=== PATIENT | male | born 1970 | race Caucasian/White ===

== ENCOUNTER 2022-03-03 08:03 | Outpatient (RCR) | payer OTHER, SELFPAY | END 2022-04-22 11:31 | disposition home or self-care (01) | PROVIDERS: PCP Internal Medicine; Visit Provider Internal Medicine | DX: M54.16 Radiculopathy, lumbar region (principal); Z51.89 Encounter for other specified aftercare | CPT/HCPCS: 97110; 97112; 97161 ==

== ENCOUNTER 2022-07-16 10:35 | Outpatient (CLI) | payer OTHER, SELFPAY ==
[2022-07-16 11:17] LABS: Albumin* 4.4 g/dL (3.3-5.0); Chloride* 102 mmol/L (96-114)
[2022-07-16 11:18] LABS: Potassium* 4.6 mmol/L (3.6-5.1); Sodium* 136 mmol/L (135-149)
[2022-07-16 11:20] LABS: Carbon Dioxide* 31 mmol/L (20-32); Cholesterol* 214 mg/dL (90-199); Creatinine* 0.9 mg/dL (0.5-1.5); Estimated Glomerular Filt Rate 103 ml/min
[2022-07-16 11:21] LABS: Alanine Aminotransferase* 48 U/L (4-50); Alkaline Phosphatase* 42 U/L (40-150); Aspartate Amino Transferase* 34 U/L (12-35); Bilirubin Total* 0.6 mg/dL (0.1-1.5); Blood Urea Nitrogen* 14 mg/dL (7-30); Calcium* 9.3 mg/dL (8.4-10.6); Glucose* 197 mg/dL (60-115); HDL Cholesterol* 29 mg/dL (>=40); LDL Cholesterol Calculated 108 mg/dL (<100); Total Protein* 6.8 g/dL (6.0-8.3); Triglycerides* 383 mg/dL (40-149)
[2022-07-16 11:50] LABS: PSA Screen* 3.96 ng/mL (0.10-4.00)
== END 2022-07-16 10:36 | disposition home or self-care (01) ==
PROVIDERS: PCP Internal Medicine; Visit Provider Internal Medicine
DX: E87.8 Other disorders of electrolyte and fluid balance, not elsewhere classified (principal); E78.5 Hyperlipidemia, unspecified; E74.39 Other disorders of intestinal carbohydrate absorption; Z12.5 Encounter for screening for malignant neoplasm of prostate; Z13.1 Encounter for screening for diabetes mellitus
CPT/HCPCS: 80053; 80061; 84153

== ENCOUNTER 2023-02-04 09:15 | Outpatient (CLI) | payer OTHER, SELFPAY | END 2023-02-04 09:16 | disposition home or self-care (01) | LOC: NFLDREF 15:43 | PROVIDERS: PCP Internal Medicine; Referring Provider Internal Medicine; Visit Provider Internal Medicine | DX: E11.9 Type 2 diabetes mellitus without complications (principal); I10 Essential (primary) hypertension; M10.9 Gout, unspecified; Z13.6 Encounter for screening for cardiovascular disorders; Z95.5 Presence of coronary angioplasty implant and graft; Z12.5 Encounter for screening for malignant neoplasm of prostate | CPT/HCPCS: 80053; 80061; 82043; 82570; 84153 ==

== ENCOUNTER 2023-05-26 21:02 | Emergency (ER) | payer OTHER, SELFPAY ==
[2023-05-26 21:08] VITALS: BP 146/82; PULSE 89; RESP 18; TEMP 36.7; O2SAT 99; BMI 30.7
--- NOTE | 2023-05-26 21:22 | ED.GENADULT ---
HPI - General Adult General Chief complaint: Abdominal Pain Stated complaint: Abdominal pains Time Seen by Provider: 05/26/23 21:19 History of Present Illness HPI narrative: CC: Lower Back Pain, Nausea/ Vomiting pt. with pain after eating since yesterday . has had n/v after eating. denies fevers. 53-year-old man presenting to the emergency department with concern of nausea and vomiting and cramping abdominal pain, diarrhea. since eating yesterday. Wondering if might have been bad food but this was shared and significant other with no effect. Eats and then has terrible cramping. Has not had a fever. No hematochezia or hematemesis described. No rashes noted. Related Data Home Medications Medication Instructions Recorded Confirmed albuterol 90 mcg/actuation aerosol 2 spray inhalation Q4H PRN 07/17/22 05/26/23 inhaler Previous Rx's Medication Instructions Recorded clopidogrel 75 mg tablet (Plavix) 75 mg PO QDAY CAD #90 tabs 10/07/22 metformin 500 mg tablet 500 mg PO QDAY Diabetes #90 tabs 10/07/22 metoprolol tartrate 25 mg tablet 25 mg PO BID Hypertension #180 tabs 10/07/22 atorvastatin 20 mg tablet (Lipitor) 20 mg PO QHS Hyperlipidemia #90 12/30/22 tabs allopurinol 200 mg tablet 200 mg PO QDAY #30 tabs 01/30/23 hyoscyamine sulfate 0.125 mg 0.25 mg (2 x 0.125 mg) PO QID PRN 05/27/23 sublingual tablet cramping #20 tabs lorazepam 0.5 mg tablet 0.5 mg PO BID PRN agitation #60 06/09/23 tabs Allergies Allergy/AdvReac Type Severity Reaction Status Date / Time Cat hair extract Allergy Intermediate Difficulty Uncoded 02/04/23 08:42 Breathing Review of Systems Status of ROS: Reports: 6 or more systems reviewed and unremarkable except as noted in History and below [facility] Medical History Myocardial infarction ?I21.9 - Acute myocardial infarction, unspecified (ICD-10) Hypertension ?I10 - Essential (primary) hypertension (ICD-10) Healthcare maintenance ?Z00.00 - Encounter for general adult medical examination without abnormal findings (ICD-10) Diabetes ?E11.9 - Type 2 diabetes mellitus without complications (ICD-10) Gout ?M10.9 - Gout, unspecified (ICD-10) Umbilical hernia ?K42.9 - Umbilical hernia without obstruction or gangrene (ICD-10) Anxiety ?F41.9 - Anxiety disorder, unspecified (ICD-10) Surgical History Status post coronary artery stent placement ?Z95.5 - Presence of coronary angioplasty implant and graft (ICD-10) Social History Narrative: Patient admits to drinking alcohol. He is in real estate sales. Smoking Status: Never smoker Second hand tobacco smoke exposure: No How often do you have a drink containing alcohol: never How often do you have six or more drinks on one occasion: Never AUDIT-C Alcohol total score: 0 Non-prescribed substance use: denies use Little interest or pleasure in doing things: not at all Feeling down, depressed, or hopeless: not at all Exam Narrative: Exam Narrative: Pleasant. Clearly uncomfortable. Restless. Speaking easily. Though oropharynx sticky. Does looks a little miserable. Lungs are clear. Heart in regular rate and rhythm. Distant. Skin is warm and dry. Well-perfused peripherally without edema. Abdomen with hyperactive bowel sounds. Diffusely little tense. No peritoneal signs. Centrally and lower somewhat tender. Const: Vital Signs, click to edit/add: Vital Signs - 24 hr 05/26/23 21:08 Temperature 98.0 F Pulse Rate [Right Pulse Oximeter] 89 Respiratory Rate 18 Blood Pressure [Ri ght Upper Arm] 146/82 H Pulse Oximetry 99 Oxygen Delivery Me thod Room Air Documenting provider has reviewed patient's vital signs: yes Course Vital Signs Vital signs: Initial Vital Signs Temperature 98.0 F 05/26/23 21:08 Temperature Source Temporal Artery Scan 05/26/23 21:08 Pulse Rate 89 05/26/23 21:08 Respiratory Rate 18 05/26/23 21:08 Blood Pressure 146/82 H 05/26/23 21:08 Blood Pressure Mean 103 05/26/23 21:08 Blood Pressure Position Sitting 05/26/23 21:08 Pulse Oximetry 99 05/26/23 21:08 Oxygen Delivery Method Room Air 05/26/23 21:08 Vital Signs Temperature 98.0 F 05/26/23 21:08 Pulse Rate 89 05/26/23 21:08 Respiratory Rate 18 05/26/23 21:08 Blood Pressure 146/82 H 05/26/23 21:08 Pulse Oximetry 99 05/26/23 21:08 Oxygen Delivery Method Room Air 05/26/23 21:08 Temperature 98.1 F 05/27/23 00:51 Pulse Rate 79 05/27/23 00:51 Respiratory Rate 18 05/27/23 00:51 Blood Pressure 135/74 05/27/23 00:51 Pulse Oximetry 99 05/27/23 00:47 Oxygen Delivery Method Room Air 05/27/23 00:47 Medical Decision Making MDM Narrative Medical decision making narrative: This seems to be somewhat of a gastroenteritis of unclear etiology. Given timing was described I am not convinced that this was a food borne illness. Nonspecific viral most likely. Will do other evaluation no and consider diverticulitis, appendicitis, mesenteric adenitis. The colicky nature does imply think more of colitis/enteritis picture. IV initiated. Did ultimately receive 2 L of normal saline. Given hyoscyamine and Zofran. Seems to think that the hyoscyamine in particular was helpful. Was also given subsequently ketorolac. Labs are generally reassuring though sodium was low prompting the 2 L. I would expect him to have been return to about 133 millimoles per L of sodium. I think this is an acute sodium loss from GI source Overall improved requesting departure. See patient discharge plan Lab Data Lab results reviewed: Yes I reviewed the patient's lab results Labs: Lab Results 05/26/23 05/26/23 Range/Units 21:30 21:50 WBC 7.79 (4.50-11.00) K/uL RBC 4.36 (4.30-5.90) m/uL Hgb 14.1 (13.5-17.5) gm/dL Hct 39.8 (37.0-53.0) % MCV 91 (80-100) fL MCH 32 (26-34) pg MCHC 35 (32-36) gm/dL RDW Coeff of Christopher 12.3 (11.5-15.5) % Plt Count 92 L (140-440) K/uL Neut % (Auto) 80.6 H (42.0-72.0) % Lymph % (Auto) 8.9 L (20-44) % [place] % (Auto) 9.5 (0.0-11.0) % Eos % (Auto) 0.3 (0.0-7.0) % Baso % (Auto) 0.1 (0.0-3.0) % Neut # (Auto) 6.30 (1.7-7.0) K/uL Lymph # (Auto) 0.70 L (0.90-2.90) K/uL [place] # (Auto) 0.70 (0.00-0.90) K/UL Eos # (Auto) 0.02 (0.00-0.50) K/uL Baso # (Auto) 0.01 (0.00-0.30) K/uL Abs Immat Gran (auto) 0.05 (0.00-0.30) K/uL Imm/Tot Granulo (auto) 0.6 % Sodium 129 L (135-149) mmol/L Potassium 4.3 (3.6-5.1) mmol/L Chloride 97 (96-114) mmol/L Carbon Dioxide 21 (20-32) mmol/L Anion Gap 11 (7-15) mEq/L BUN 8 (7-30) mg/dL Creatinine 0.7 (0.5-1.5) mg/dL Estimated Creat Clear 110.13 Estimated GFR 110 ml/min Glucose 175 H (60-115) mg/dL Calcium 9.5 (8.4-10.6) mg/dL Total Bilirubin 0.8 (0.1-1.5) mg/dL Direct Bilirubin 0.0 (0.0-0.5) mg/dL AST 23 (12-35) U/L ALT 23 (4-50) U/L Alkaline Phosphatase 44 (40-150) U/L C-Reactive Protein 5.5 H (0.5-1.0) mg/dL Total Protein 7.4 (6.0-8.3) g/dL Albumin 4.4 (3.3-5.0) g/dL Lipase 73 (23-300) U/L SARS-CoV-2 (PCR) Negative SARS-CoV-2 (Negative) Influenza Type A (PCR) Negative PCR FLU A (Negative) Influenza Type B (PCR) Negative PCR FLU B (Negative) RSV (PCR) Negative PCR RSV (Negative) Discharge Plan Discharge Clinical Impression: Abdominal pain, colicky, Gastroenteritis, Acute hyponatremia Patient Disposition: Home w/ Parent or Adult Condition: Improved Additional Instructions: Focus on hydration with slow advance of diet over the next 36 hours. Diluted juices, soup broths. Jell-O. Crackers, toast, rice. Return for persistent and worsening pain, fever, intractable vomiting, worsening diarrhea. Zofran from [facility]. Without fever or blood in your stool I think you could try loperamide for the diarrhea. Prescriptions: New hyoscyamine sulfate 0.125 mg tablet, sublingual 0.25 mg PO QID PRN (Reason: cramping) Qty: 20 0RF No Action albuterol 90 mcg/actuation aerosol 2 spray inhalation Q4H PRN metformin 500 mg tablet 500 mg PO QDAY Qty: 90 3RF metoprolol tartrate 25 mg tablet 25 mg PO BID Qty: 180 3RF clopidogrel [Plavix] 75 mg tablet 75 mg PO QDAY Qty: 90 2RF atorvastatin [Lipitor] 20 mg tablet 20 mg PO QHS Qty: 90 1RF allopurinol 200 mg tablet 200 mg PO QDAY Qty: 30 0RF lorazepam 0.5 mg tablet 0.5 mg PO BID PRN (Reason: agitation) Qty: 60 0RF Follow Up/Referrals: Kahlil Rouse MD [Primary Care Provider] - Stand Alone Forms: [employer] Info Instructions
[2023-05-26] MEDS: ONDANSETRON 2 MG/ML inj 4 MG IVP (21:45)
[2023-05-26] MEDS: 0.9 % SODIUM CHLORIDE 1000 ml 1,000 ML IV ×2 (21:45→22:37)
[2023-05-26] MEDS: HYOSCYAMINE SULFATE 0.125 MG TAB 0.25 MG SUBLINGUAL (21:45)
[2023-05-26 22:00] VITALS: O2SAT 98
[2023-05-26 22:13] LABS: Basophils Absolute Auto 0.01 K/uL (0.00-0.30); Basophils Percent Auto 0.1 % (0.0-3.0); Eosinophils Absolute Auto 0.02 K/uL (0.00-0.50); Eosinophils Percent Auto 0.3 % (0.0-7.0); Hematocrit 39.8 % (37.0-53.0); Hemoglobin* 14.1 gm/dL (13.5-17.5); Immature Granulocytes Abs Auto 0.05 K/uL (0.00-0.30); Immature Granulocytes Pct Auto 0.6 %; Lymphocytes Percent Auto 8.9 % (20-44); Mean Corpuscular HGB Conc 35 gm/dL (32-36); Mean Corpuscular Hemoglobin 32 pg (26-34); Mean Corpuscular Volume 91 fL (80-100); Monocytes Percent Auto 9.5 % (0.0-11.0); Neutrophils Percent Auto 80.6 % (42.0-72.0); Platelet Count* 92 K/uL (140-440); RDW Coefficient of Variation % 12.3 % (11.5-15.5); Red Blood Count 4.36 m/uL (4.30-5.90); White Blood Count* 7.79 K/uL (4.50-11.00)
[2023-05-26 22:14] LABS: Slide Review Reflex No
[2023-05-26 22:15] LABS: Albumin* 4.4 g/dL (3.3-5.0); Chloride* 97 mmol/L (96-114); Potassium* 4.3 mmol/L (3.6-5.1); Sodium* 129 mmol/L (135-149)
[2023-05-26 22:17] LABS: Creatinine* 0.7 mg/dL (0.5-1.5); Est. Creatinine Clearance* 110.13; Estimated Glomerular Filt Rate 110 ml/min; Lipase* 73 U/L (23-300)
[2023-05-26 22:18] LABS: Alkaline Phosphatase* 44 U/L (40-150); Anion Gap 11 mEq/L (7-15); Aspartate Amino Transferase* 23 U/L (12-35); Bilirubin Total* 0.8 mg/dL (0.1-1.5); Blood Urea Nitrogen* 8 mg/dL (7-30); Carbon Dioxide* 21 mmol/L (20-32); Glucose* 175 mg/dL (60-115); Total Protein* 7.4 g/dL (6.0-8.3)
[2023-05-26 22:19] LABS: Alanine Aminotransferase* 23 U/L (4-50); Calcium* 9.5 mg/dL (8.4-10.6)
[2023-05-26 22:21] LABS: C Reactive Protein* 5.5 mg/dL (0.5-1.0)
[2023-05-26 23:18] LABS: PCR FLU A Negative PCR FLU A (Negative); PCR FLU B Negative PCR FLU B (Negative); PCR RSV Negative PCR RSV (Negative); SARS PCR* Negative SARS-CoV-2 (Negative)
[2023-05-26 23:20] VITALS: TEMP 36.9
[2023-05-26] MEDS: KETOROLAC 30 MG/ML inj IVP (23:20)
[2023-05-27 00:47] VITALS: BP 135/74; PULSE 79; RESP 18; TEMP 36.7; O2SAT 99
[2023-05-27 00:49] VITALS: TEMP 36.7
[2023-05-27 00:51] VITALS: BP 135/74; PULSE 79; RESP 18; TEMP 36.7
== END 2023-05-27 00:52 | disposition home or self-care (01) ==
PROVIDERS: Emergency Provider Family Medicine; PCP Internal Medicine
DX: K52.9 Noninfective gastroenteritis and colitis, unspecified (principal); E87.1 Hypo-osmolality and hyponatremia
CPT/HCPCS: 36415; 80048; 80076; 83690; 85025; 86140; 87631; 94761; 96374; 96375; 99284; A9270; J1885; J2405; J7030

== ENCOUNTER 2023-11-19 07:35 | Outpatient (CLI) | payer OTHER, SELFPAY | END 2023-11-19 07:36 | disposition home or self-care (01) | LOC: NFLDREF 14:33 | PROVIDERS: PCP Internal Medicine; Referring Provider Internal Medicine; Visit Provider Internal Medicine | DX: E78.5 Hyperlipidemia, unspecified (principal) | CPT/HCPCS: 80061 ==

== ENCOUNTER 2024-02-24 10:01 | Outpatient (CLI) | payer OTHER, SELFPAY | END 2024-02-24 10:02 | disposition home or self-care (01) | LOC: NFLDREF 02-25 07:40 | PROVIDERS: PCP Internal Medicine; Referring Provider Internal Medicine; Visit Provider Internal Medicine | DX: R53.1 Weakness (principal) | CPT/HCPCS: 80053; 84443 ==

== ENCOUNTER 2024-03-17 12:50 | Outpatient (CLI) | payer OTHER, SELFPAY ==
--- OUTSIDE RECORDS SUMMARY | 2024-03-17 12:52 | XMS_ITS | Clinical Summary ---
Author Organization [facility] Address [address] [place] [address] Care Team Providers Care Special Education Educational Assistant Name Role Phone Elsewhere, Pcp Primary Care Provider Unavailabl e Source Comments Patient records contain information from all sites at [facility]. For routine questions regarding patient records, call [phone] during business hours, M-F 8:00 AM - 5:00 PM Central Time. Record requests for emergency care only can be directed to [phone] at any time.[facility] Allergies Active Allergy Reactions Criticality Noted Date Comments Cat Dander Other (see comments) 12/16/2022 Medications Medication Sig Dispensed Refills Start Date End Date Status LORazepam (ATIVAN) 0.5 mg tablet Take 0.5 mg by mouth as needed. 01/26/2021 Active zolpidem (AMBIEN) 5 mg tablet Take 5 mg by mouth as needed. 12/03/2020 Active allopurinoL (ZYLOPRIM) 300 mg tablet Take 150 mg by mouth 2 (two) times a week. 03/27/2021 Active metFORMIN (GLUCOPHAGE) 500 mg tablet 1 tablet daily. 12/01/2022 Active metoprolol tartrate (LOPRESSOR) 25 mg tablet 1 tablet 2 (two) times a day. 12/01/2022 Active clopidogreL (PLAVIX) 75 mg tablet 1 tablet daily. 12/01/20[address] tablet Take 81 mg by mouth daily. 10/04/2022 Active L-LYSINE ORAL Take 1 tablet by mouth as needed. Active cholecalciferol (Vitamin D3) 50 mcg (2,000 Unit) tablet Take 50 mcg by mouth daily. Active NIFEdipine (ADALAT CC) 60 mg ER tablet Take 60 mg by mouth daily. 08/24/2023 Active albuterol-budesonide 90-80 mcg/actuation HFA aerosol inhaler Inhale 2 sprays as needed. 07/17/2022 Active atorvastatin (LIPITOR) 40 mg tablet Take 1 tablet (40 mg total) by mouth daily. 90 tablet 3 09/03/2023 09/02/2024 Active predniSONE (DELTASONE) 20 mg tablet Take 2 tablets (40 mg total) by mouth daily. 10 tablet 12/19/2023 Active Active Problems Problem Noted Date Diagnosed Date Atherosclerotic Heart Diseas e Of [place] Coronary Artery Without Angina Pectoris 09/01/2023 Myocardial Infarction Old 09/01/2023 Coronary Stent Status Post 09/01/2023 Family History Coronary Artery Disease Elevated Lipoprotein A 09/01/2023 Diabetes Mellitus Type 2 09/01/2023 Hypertension Essential Primary 09/01/2023 Hyperlipidemia On Treatment 09/01/2023 Apnea Sleep Obstructive 06/14/2021 Overview (06/14/2021): Added automatically from request for surgery [id number] Encounters Date Type Department Care Team Description 12/19/2023 1:16 PM CDT - 12/19/2023 11:59 PM CDT Hospital Encounter Department of Radiology in [place], [place] [address] [id number] Mercedez Correa P.A.-C., P.A. Cough Acute Discharge Disposition: Home or Self Care 12/19/2023 1:00 PM CDT Office Visit Department of Family Medicine, [facility], in [place], [place] [address] [phone] Mercedez Correa, P.A.-C., P.A. Cough Acute (Primary Dx); Thrombocytopenia (HCC) from Last 3 Months Immunizations Name Administration Dates Next Due Rabies, intramuscular, historical 2012,05/30/2013,05/17/2013, 013,05/04/2013,04/19/2013,04/15/2013 SARS-COV-2 (COVID-19) - PFIZ ER (Discontinued)(12 years or older) 07/19/2021,12/31/2020,11/29/2020 SARS-COV-2 (COVID-19) - PFIZ ER BIVALENT TS(Discontinued)(12 YEARS OR OLDER) 06/03/2022 Tdap 04/15/2013 Family History Medical History Relation Name Comments Pancreatic cancer Maternal Grandmother Marline Relation Name Status Comments Maternal Grandmother Marline Social History Tobacco Use Types Packs/Day Years Used Date Smoking Tobacco: Never Passive Smoke Exposure: Past Smokeless Tobacco: Never Tobacco Cessation:Counseling Given: Not Answered Comments:Past secondhand exposure Alcohol Use Standard Drinks/Week Comments Yes 11 (1 standard drink = 0.6 oz pu re alcohol) Humiliation, Afraid, Rape, and Kick questionnair e Answer Date Recorded Within the last year, have y ou been afraid of your partner or ex-partner? Patient declined 12/14/2022 Within the last year, have y ou been humiliated or emotionally abused in other ways by your partner or ex-partner? Patient declined 12/14/2022 Within the last year, have y ou been kicked, hit, slapped, or otherwise physically hurt by your partner or ex-partner? Patient declined 12/14/2022 Within the last year, have y ou been raped or forced to have any kind of sexual activity by your partner or ex-partner? Patient declined 12/14/2022 Social Connection and Isolat ion Panel [NHANES] Answer Date Recorded In a typical week, how many times do you talk on the phone with family, friends, or neighbors? More than three times a week 12/14/2022 How often do you get togethe r with friends or relatives? Three times a week 12/14/2022 How often do you attend chur or scientologist services? Patient declined 12/14/2022 Do you belong to any clubs o r organizations such as yazidism groups, unions, fraternal or athletic groups, or school groups? No 12/14/2022 How often do you attend meet ings of the clubs or organizations you belong to? Never 12/14/2022 Are you , , di vorced, , never , or living with a partner? 12/14/2022 AUDIT-C Answer Date Recorded Q1: How often do you have a drink containing alc ohol? Patient declined 12/14/2022 Average Number of Drinks Not on file 023 Frequency of Binge Drinking Not on file 11/17 Overall Financial Resource Strain (CARDIA) Answe r Date Recorded How hard is it for you to pa y for the very basics like food, housing, medical care, and heating? Patient declined 12/14/2022 [facility] Occupational Stress Questionnaire Answer Date Recorded Do you feel stress - tense, restless, nervous, or anxious, or unable to sleep at night because your mind is troubled all the time - these days? Only a little 12/14/2022 Exercise Vital Sign Answer Date Recorde d On average, how many days pe r week do you engage in moderate to strenuous exercise (like a brisk walk)? 2 days 12/14/2022 On average, how many minutes do you engage in exercise at this level? 20 min 12/14/2022 Hunger Vital Sign Answer Date Recorded Within the past 12 months, y ou worried that your food would run out before you got the money to buy more. Patient declined Within the past 12 months, t he food you bought just didn't last and you didn't have money to get more. Patient declined PRAPARE - Transportation Answer Date Re corded In the past 12 months, has l ack of transportation kept you from medical appointments or from getting medications? No 12/14/2022 In the past 12 months, has l ack of transportation kept you from meetings, work, or from getting things needed for daily living? Patient declined 12/14/2022 Housing Stability Vital Sign Answer Dion e Recorded In the last 12 months, was t here a time when you were not able to pay the mortgage or rent on time? Patient refused 12/15/19 23 In the last 12 months, how many places have you lived? 69 12/14/2022 In the last 12 months, was t here a time when you did not have a steady place to sleep or slept in a skilled nursing (including now)? Patient refused 12/14/2022 Nutrition Answer Date Recorded On average, how many serving s of fruits and vegetables do you eat per day (serving size is equal to 1 cup or approximately the size of a tennis ball)? 0-1 12/14/2022 Dental Answer Date Recorded Dental: Regular Dentist Yes 09/07/19 Employment Answer Date Recorded Employment status Employed and actively working without restrictions 12/14/2022 Education Answer Date Recorded What is the highest level of school you have completed or the highest degree you have received? Some college, no degree 12/14/2022 Sex and Gender Information Value Date Recorded Sex Assigned at Male 12/14/2022 8:58 PM CDT Gender Identity Male 12/18/2022 2:56 PM CDT Sexual Orientation Straight 12/14/2022 8: 58 PM CDT Last Filed Vital Signs Vital Sign Reading Time Taken Comments Blood Pressure 120/55 12/19/2023 12:43 PM CDT Pulse 74 12/19/2023 12:43 PM CDT Temperature 36 ??C (96.8 ??F) 02/05/2022 1:52 PM CDT Respiratory Rate 20 12/19/2023 12:43 PM CDT Oxygen Saturation 98% 12/19/2023 12:43 PM CDT Inhaled Oxygen Concentration - - Weight 85.9 kg (189 lb 6 oz) 12/19/2023 12:43 PM CDT Height 166.3 cm (5' 5.47) 09/01/2023 12:[address] Body Mass Index 31.06 09/01/2023 12:08 PM ENGINEERING VICE PRESIDENT Plan of Treatment Health Maintenance Due Date Last Done Comments CT Colonography 1970 Cologuard 1970 Colonoscopy 1970 Colorectal Cancer Screening 1970 Diabetic Office Visit with F oot Exam 1970 Dilated Eye Exam 1970 FIT 1970 HIV Screening 1970 Hepatitis C Screening 1970 Urine Albumin 1970 Pneumococcal vaccine (0-64 y ears) (1 of 2 - PCV) 1976 Hepatitis B Vaccines (1 of 3 - 19+ 3-dose series) 1989 Zoster Vaccines (1 of 2) 2020 COVID-19 Vaccine ( - 2022-2 4 season) 2023 06/03/2022, 07/19/2021, 12/31/2020, Additional history exists Depression Screening (Annual PHQ-2) 08/17/2023 Hemoglobin A1C 03/01/2024 09/01/2023, 12/18/2022 Influenza Vaccine (#1) 2024 07/17/2022, 2021 Creatinine Level (Kidney Fun ction Test) 09/01/2024 09/01/2023, 12/18/2022 Office Visit for Blood Press ure Check / Re-check 12/18/2024 12/19/2023 Lipid (Cholesterol) Screening 09/01/2028 09/01/2023, 12/18/2022 DTaP,Tdap,and Td Vaccines (3 - Td or Tdap) 07/17/2032 07/17/2022, 04/15/2013 Medical Devices Implanted Type Area Public Health Service Officer Device Identifier Shelf Expiration Date Model / Serial / Lot Cardiac Stent Cardiac Stent Heart Description:3 stents Procedures Procedure Name Priority Date/Time Associated Diagnosis Comments DX CHEST AP OR PA AND LATERAL 2 VIEWS RAD - Routine (most inpatients and all outpatients) 12/19/2023 1:32 PM CDT Cough Acute CBC WITH DIFFERENTIAL, B Routine 12/19/2023 1:22 PM CDT Cough Acute HEMOGLOBIN A1C, B Routine 09/01/2023 11: 48 AM ENGINEERING VICE PRESIDENT Atherosclerotic Heart Disease Of [place] Coronary Artery Without Angina Pectoris Diabetes Mellitus Type 2 (HCC) LIPID PANEL, S Routine 09/01/2023 11:48 AM ENGINEERING VICE PRESIDENT Atherosclerotic Heart Disease Of [place] Coronary Artery Without Angina Pectoris CREATININE WITH EGFR, S/P Routine 09/01/2023 11:48 AM ENGINEERING VICE PRESIDENT Atherosclerotic Heart Disease Of [place] Coronary Artery Without Angina Pectoris from Last 3 Months or Most Recently Relevant to Health Maintenance Results * DX Chest AP or PA and Lateral 2 Views (12/19/2023 1:32 PM CDT) Anatomical Region Laterality Modality Chest, Thoracic RST LOS, Tho racic ARZ LOS, Thoracic FLA LOS N/A Digital Radiography Impressions 12/19/2023 1:34 PM CDT No focal airspace opacity. Narrative 12/19/2023 1:34 PM CDT EXAM: DX CHEST AP OR PA AND LATERAL 2 VIEWS COMPARISON: Chest radiograph 09/01/2023 FINDINGS: Trachea is midline. Cardiac and mediastinal borders are clear. Cardiac silhouette is nonenlarged. No focal consolidation. No pleural effusion or pneumothorax. Partially visualized upper abdomen is unremarkable. No osseous abnormality. Procedure Note Cheng Villegas M.D. - 12/19/2023 EXAM: DX CHEST AP OR PA AND LATERAL 2 VIEWS COMPARISON: Chest radiograph 09/01/2023 FINDINGS: Trachea is midline. Cardiac and mediastinal borders are clear.Cardiac silhouette is nonenlarged. No focal consolidation. No pleuraleffusion or pneumothorax. Partially visualized upper abdomen isunremarkable. No osseous abnormality. IMPRESSION: No focal airspace opacity. Mercedez Correa P.A.-C., P.A. IMG DIAGNOSTI C IMAGING PROCEDURES * (ABNORMAL) CBC with Differential, Blood (12/19/2023 1:22 PM CDT) Pathologist [facility] Hemoglobin 13.2 13.2 - 16.6 g/dL 12/19/2023 1:27 PM CDT OWAT Hematocrit 36.9(L) 38.3 - 48.6 % 12/19/2023 1:27 PM CDT OWAT Erythrocytes 4.14(L) 4.35 - 5.65 x10(12)/L 12/19/2023 1:27 PM CDT OWAT MCV 89.1 78.2 - 97.9 fL 12/19/2023 1:27 PM CDT OWAT RBC Distrib Width 11.7(L) 11.8 - 14.5 % 12/19/2023 1:27 PM CDT OWAT Platelet Count 127(L) 135 - 317 x10(9)/L 12/19/2023 1:27 PM CDT OWAT Leukocytes 4.7 3.4 - 9.6 x10(9)/L 12/19/2023 1:27 PM CDT OWAT Neutrophils 2.30 1.56 - 6.45 x10(9)/L 12/19/2023 1:27 PM CDT OWAT Lymphocytes 1.49 0.95 - 3.07 x10(9)/L 12/19/2023 1:27 PM CDT OWAT Monocytes 0.53 0.26 - 0.81 x10(9)/L 12/19/2023 1:27 PM CDT OWAT Eosinophils 0.31 0.03 - 0.48 x10(9)/L 12/19/2023 1:27 PM CDT OWAT Basophils 0.03 0.01 - 0.08 x10(9)/L 12/19/2023 1:27 PM CDT OWAT Blood (Blood, Venous) 12/19/2023 1:22 PM CDT 12/19/2023 1:25 PM CDT Mercedez Correa P.A.-C., P.A. LAB BLOOD ADD -ON [facility] [address] [address], [facility] in [place] [address] [place] [address] * (ABNORMAL) Lipid Panel (09/01/2023 11:48 AM ENGINEERING VICE PRESIDENT) Triglycerides 179(H) mg/dL 09/01/2023 12:57 PM ENGINEERING VICE PRESIDENT DTL Comment: ----REFERENCE VALUE---- Normal: <150 mg/dL Borderline High: 150-199 mg/dL High: 200-499 mg/dL Very High: > or =500 mg/dL Cholesterol, Total 149 mg/dL 2023 12:57 PM ENGINEERING VICE PRESIDENT DTL Comment: ----REFERENCE VALUE---- Desirable: < 200 mg/dL Borderline High: 200 - 239 mg/dL High: > or = 240 mg/dL Cholesterol, LDL, Calculated 83 mg/dL 09/01/2023 12:57 PM ENGINEERING VICE PRESIDENT DTL Comment: ----REFERENCE VALUE---- Desirable: <100 mg/dL Above Desirable: 100-129 mg/dL Borderline High: 130-159 mg/dL High: 160-189 mg/dL Very High: >=190 mg/dL ----ADDITIONAL INFORMATION---- LDL cholesterol calculated using the Ortiz/NIH equation. Cholesterol, HDL, S 35(L) >=40 mg/dL 09/01/2023 12:57 PM ENGINEERING VICE PRESIDENT DTL Cholesterol, Non-HDL, Calculated 114 mg/dL 09/01/2023 12:57 PM ENGINEERING VICE PRESIDENT DTL Comment: ----REFERENCE VALUE---- Desirable: <130 mg/dL Above Desirable: 130-159 mg/dL Borderline High: 160-189 mg/dL High: 190-219 mg/dL Very High: > or =220 mg/dL Fasting (8 HR or more) Yes 09/01/2023 12:38 PM ENGINEERING VICE PRESIDENT DTL Blood (Blood, Venous) 09/01/2023 11:48 AM ENGINEERING VICE PRESIDENT 09/01/2023 12:38 PM ENGINEERING VICE PRESIDENT Yazan Chirinos APRN.N.P., Rajat.NRennyPRenny MITCHELL BLOOD ADD-ON Performing Organization Address City/[facility]/ZIP Co de Phone Number [facility] [address] [place] [address] * (ABNORMAL) Hemoglobin A1c (09/01/2023 11:48 AM ENGINEERING VICE PRESIDENT) [facility] Hemoglobin A1c, B 6.7(H) 4.0 - 5.6 % 09/01/2023 12:52 PM ENGINEERING VICE PRESIDENT DTL Comment: Hemoglobin A1c values greater than or equal to 6.5 percent are diagnostic for diabetes mellitus. ??Diagnosis should be confirmed by repeat testing. ??In diabetic patients, HbA1c goals should be discussed with healthcare provider. Blood (Blood, Venous) 09/01/2023 11:48 AM ENGINEERING VICE PRESIDENT 09/01/2023 12:20 PM ENGINEERING VICE PRESIDENT Lorena Marroquin APRN, C.N.PRenny, Rajat.N.PRenny APONTE B BLOOD ADD-ON Performing Organization Address City/[facility]/ZIP Co de Phone Number [facility] [address] [place] [address] * Creatinine with Estimated GFR (09/01/2023 11:48 AM ENGINEERING VICE PRESIDENT) Creatinine 1.04 0.74 - 1.35 mg/dL 09/01/2023 12:57 PM ENGINEERING VICE PRESIDENT DTL Estimated GFR (eGFR) 86 >=60 mL/min/BSA 09/01/2023 12:57 PM ENGINEERING VICE PRESIDENT DTL Comment: Estimated GFR calculated using the 2020 CKD_EPI creatinine equation. Blood (Blood, Venous) 09/01/2023 11:48 AM ENGINEERING VICE PRESIDENT 09/01/2023 12:38 PM ENGINEERING VICE PRESIDENT Lorena Marroquin APRN, C.N.P., D.N.P. FAY Nieto BLOOD ADD-ON [facility] [address] [place] [address], [facility] [address] [place] [address] from Last 3 Months or Most Recently Relevant to Health Maintenance Care Teams Special Education Educational Assistant Relationship Specialty Start Date End Date Elsewhere, Pcp PCP - General Internal Medicine 02/05/22
--- OUTSIDE RECORDS SUMMARY | 2024-03-17 12:53 | XMS_ITS | Encounter Summary ---
Author Organization [facility] Address [address] [place] [address] Care Team Providers Care Crutcher Helper Name Role Phone Elsewhere, Pcp Primary Care Provider Unavailabl e Reason for Referral * Outpatient (Routine) - Closed Specialty Diagnoses / Procedures Referred By Joan osman Referred To Contact Diagnoses Cough Acute Procedures DX Chest AP or PA and Lateral 2 Views Mercedez Correa P.A.-C., P.A. [address] [address] [facility] Region Referral ID Status Reason Start Date Expiration Date Visits Re quested Visits Authorized [id number] Closed 12/19/2023 12/18/2024 1 1 Reason for Visit * Reason Comments Upper Respiratory Infection FATIGUE Cough PRODUCTIVE Encounter Details Date Type Department Care Team (Late Contact Info) Description 12/19/2023 1:00 PM CDT Office Visit Department of Family Medicine, [facility], in [place], [place] [address], [place] [address] Mercedez Correa P.A.-C., P.A. [address] [address] Cough Acute (Primary Dx); Thrombocytopenia (HCC) Social History Tobacco Use Types Packs/Day Years [...] 12/14/2022 How often do you attend chur ch or voodoo services? Patient declined 12/14/2022 Do you belong to any clubs o r organizations such as rastafarian groups, unions, fraternal or athletic groups, or [...] medical care, and heating? Patient declined 12/14/2022 [facility] - Occupational Stress Questionnaire Answer Date Recorded [...] or rent on time? Patient refused 12/15/19 In the last 12 months, how many places have you lived? 69 12/14/2022 In the last 12 months, was t here a time when you did not have a steady place to sleep or slept in a retirement (including now)? Patient refused 12/14/2022 Nutrition Answer [...] Orientation Straight 12/14/2022 8: 58 PM CDT documented as of this encounter Last Filed Vital Signs Vital Sign Reading Time Taken Comments Blood Pressure 120/55 12/19/2023 12:43 PM CDT Pulse 74 12/19/2023 12:43 PM CDT Temperature - - Respiratory Rate 20 12/19/2023 12:43 PM CDT Oxygen Saturation 98% 12/19/2023 12:43 PM CDT Inhaled Oxygen Concentration - - Weight 85.9 kg (189 lb 6 oz) 12/19/2023 12:43 PM CDT Height - - Body Mass Index 31.06 09/01/2023 12:08 PM [employer] documented in this encounter Progress Notes * Mercedez Correa P.A.-C., P.A. - 12/19/2023 1:00 PM CDT SUBJECTIVE CHIEF COMPLAINT/REASON FOR VISIT Upper Respiratory Infection (FATIGUE) and Cough (PRODUCTIVE ) HISTORY OF PRESENT ILLNESS Cheng Chisholm is a 53 y.o. male who presents for evaluation of cough and runny nose. This has beenongoing for about 1 week. He notes significant fatigue associated with this. He denies significant shortness of breath or chest pain. No fevers/chills. No known sick contacts. He has no history of chronic lung conditions. 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 aspirin [address] tablet Take 81 mg by mouth daily. atorvastatin (LIPITOR) 40 mg tablet Take 1 tablet (40 mg total) by mouth daily. 90 tablet 3 cholecalciferol (Vitamin D3) 50 mcg (2,000 Unit) tablet Take 50 mcg by mouth daily. L-LYSINE ORAL Take 1 tablet by mouth as needed. LORazepam (ATIVAN) 0.5 mg tablet Take 0.5 mg by mouth as needed. metFORMIN (GLUCOPHAGE) 500 mg tablet 1 tablet daily. metoprolol tartrate (LOPRESSOR) 25 mg tablet 1 tablet 2 (two) times a day. NIFEdipine (ADALAT CC) 60 mg ER tablet Take 60 mg by mouth daily. zolpidem (AMBIEN) 5 mg tablet Take 5 mg by mouth as needed. allopurinoL (ZYLOPRIM) 300 mg tablet Take 150 mg by mouth 2 (two) times a week. clopidogreL (PLAVIX) 75 mg tablet 1 tablet daily. predniSONE (DELTASONE) 20 mg tablet Take 2 tablets (40 mg total) by mouth daily. 10 tablet 0 No current facility-administered medications for this visit. ALLERGIES/CONTRAINDICATIONS Allergies Allergen Reactions Cat Dander Other (see comments) OBJECTIVE BP 120/55 (BP Location: Right arm, Patient Position: Sitting, Cuff Size: Regular) Pulse 74 Resp20 Wt 85.9 kg SpO2 98% BMI 31.06 kg/m?? PHYSICAL EXAMINATION General: No acute distress. Patient is polite and cooperative. Appropriately dressed and normal hygiene. Skin: No suspicious lesions or rash noted over exposed skin. HEENT: Normocephalic. Pupils equal, conjunctiva clear. Bilateral tympanic membranes without erythema, bulging, or effusion. Normal pharynx, without erythema or tonsillar enlargement or exudate. Uvulamidline. Neck: No nodes, no thyromegaly. Heart: Regular rate and rhythm. No murmurs, gallops or rubs noted. Lungs: Clear to auscultation bilaterally. No expiratory wheeze. No accessory muscles of respirationnoted. Musculoskeletal: Sensation intact, with no cyanosis, clubbing or edema to extremities. Mental Health: Alert and oriented. Normal thought form and content. ASSESSMENT / PLAN #1 Cough Acute - Chest xray is negative. Exam was unremarkable. I suspect this is a viral process and will likely resolve on its own. I explained to the patient that no antibiotics are indicated as there are no signs that this is of bacterial etiology. - Patient should continue with supportive cares including increasing fluids, rest, and taking ibuprofen/Tylenol as needed. - Reviewed red flag symptoms for which they would need to present to the emergency room. Otherwise should follow-up with their primary care provider if symptoms persist. - Patient understands and agrees with this plan. #2 Thrombocytopenia (HCC) - Mild at this time, however, this has trended down slightly from 3 months ago. Unclear etiology atthis time. Advise repeat CBC in 1-2 weeks with his PCP. Would consider hematology consult should this continue to trend down. Electronically signed by: Mercedez Correa P.A.-C., P.A. 12/19/23 3:51 PM CDT documented in this encounter Plan of Treatment Not on file documented as of this encounter Procedures Procedure Name Priority Date/Time Associated Diagnosis Comments CBC WITH DIFFERENTIAL, B Routine 12/19/2023 1:22 PM CDT Cough Acute documented in this encounter Results * DX Chest AP or PA [...] with Differential, Blood (12/19/2023 1:22 PM CDT) Hemoglobin 13.2 13.2 - 16.6 g/dL 12/19/2023 [...] Correa P.A.-C., P.A. LAB BLOOD ADD [facility] [address] [place] [address], [place] OW[facility] in [place] [address] [place] [address] documented in this encounter Visit Diagnoses Diagnosis Cough Acute- Primary Thrombocytopenia (HCC) Cough Acute documented in this encounter Care Teams Crutcher Helper Relationship Specialty Start Date End Date Elsewhere, Pcp PCP - General Internal Medicine 02/05/22 documented as of this encounter
--- OUTSIDE RECORDS SUMMARY | 2024-03-17 12:53 | XMS_ITS | Encounter Summary ---
Author Organization [facility] Address [address] [place] [address] Care Team Providers Care Forestry And Wildlife Manager Name Role Phone Elsewhere, Pcp Primary Care Provider Unavailabl e Reason for Referral * Outpatient (Routine) - Closed Specialty Diagnoses / Procedures Referred By Contac t Referred To Contact Diagnoses Cough Acute Procedures DX Chest AP or PA and Lateral 2 Views Mercedez Correa P.A.-C., P.A. [address], [place] [address] [facility] Region Referral ID Status Reason Start Date Expiration Date Visits Re quested Visits Authorized [id number] Closed 12/19/2023 12/18/2024 1 1 Reason for Visit * Outpatient (Routine) - Closed Specialty Diagnoses / Procedures Referred By Contac t Referred To Contact Diagnoses Cough Acute Procedures DX Chest AP or PA and Lateral 2 Views Mercedez Correa P.A.-C., P.A. [address] [place] [address] [facility] Region Referral ID Status Reason Start Date Expiration Date Visits Re quested Visits Authorized [id number] Closed 12/19/2023 12/18/2024 1 1 Encounter Details Date Type Department Care Team (Latest Contact Info) Description 12/19/2023 1:16 PM CDT - 12/19/2023 11:59 PM CDT Hospital Encounter Department of Radiology in [place], [place] [address] [place] [address] Mercedze Correa P.A.-C., P.A. [address], [place] [address] Cough Acute Discharge Disposition: Home or Self Care Social History Tobacco Use Types Packs/Day Years Used Date Smoking Tobacco: Never Passive Smoke Exposure: Past Smokeless Tobacco: Never Comments:Past secondhand exp osure Alcohol Use Standard Drinks/Week Comments Yes 11 [...] often do you attend chur ch or caodaism services? Patient declined 12/14/2022 Do you belong to any clubs o r organizations such as roman catholic groups, unions, fraternal or athletic groups, or [...] medical care, and heating? Patient declined 12/14/2022 [facility] - Occupational Stress Questionnaire Answer Date Recorded [...] place to sleep or slept in a senior care (including now)? Patient refused 12/14/2022 Nutrition Answer [...] PM CDT documented as of this encounter Medications at Time of Discharge Medication Sig Dispensed Refills Start Date End Date albuterol-budesonide 90-80 mcg/actuation HFA aerosol inhaler Inhale 2 sprays as needed. 07/17/2022 allopurinoL (ZYLOPRIM) 300 mg tablet Take 150 mg by mouth 2 (two) times a week. 03/27/[address] tablet Take 81 mg by mouth daily. 10/04/2022 atorvastatin (LIPITOR) 40 mg tablet Take 1 tablet (40 mg total) by mouth daily. 90 tablet 3 09/03/2023 09/02/2024 cholecalciferol (Vitamin D3) 50 mcg (2,000 Unit) tablet Take 50 mcg by mouth daily. clopidogreL (PLAVIX) 75 mg tablet 1 tablet daily. 12/01/2022 L-LYSINE ORAL Take 1 tablet by mouth as needed. LORazepam (ATIVAN) 0.5 mg tablet Take 0.5 mg by mouth as needed. 01/26/2021 metFORMIN (GLUCOPHAGE) 500 mg tablet 1 tablet daily. 12/01/2022 metoprolol tartrate (LOPRESSOR) 25 mg tablet 1 tablet 2 (two) times a day. 12/01/2022 NIFEdipine (ADALAT CC) 60 mg ER tablet Take 60 mg by mouth daily. 08/24/2023 predniSONE (DELTASONE) 20 mg tablet Take 2 tablets (40 mg total) by mouth daily. 10 tablet 12/19/2023 zolpidem (AMBIEN) 5 mg tablet Take 5 mg by mouth as needed. 12/03/2020 documented as of this encounter Plan of Treatment Not on file documented as of this encounter Procedures Procedure Name Priority Date/Time Associated Diagnosis Comments DX CHEST AP OR PA AND LATERAL 2 VIEWS RAD - Routine (most inpatients and all outpatients) 12/19/2023 1:32 PM CDT Cough Acute documented in this [...] P.A.-C., P.A. IMG DIAGNOSTI C IMAGING PROCEDURES documented in this encounter Visit Diagnoses Diagnosis Cough Acute documented in this encounter Care Teams Forestry And Wildlife Manager Relationship Specialty Start Date End Date Elsewhere, Pcp PCP - General Internal Medicine 02/05/22 documented as of this encounter
--- OUTSIDE RECORDS SUMMARY | 2024-03-17 12:53 | XMS_ITS | Referral Summary ---
Author Organization [facility] Address [address] [place] [address] Care Team Providers Care Managing Director Name Role Phone Elsewhere, Pcp Primary Care Provider Unavailabl e Source Comments Patient records contain information from all sites at [facility]. For routine questions regarding patient records, call [phone] during business hours, M-F 8:00 AM - 5:00 PM Central Time. Record requests for emergency care only can be directed to [phone] at any time.[facility] Encounters Date Type Department Care Team Description 12/19/2023 1:16 PM CDT - 12/19/2023 11:59 PM CDT Hospital Encounter Department of Radiology in [place], [place] [address] [place] [phone] Mercedez Correa, Yolanda.Adams.-C., P.A. Cough Acute Discharge Disposition: Home or Self Care 12/19/2023 1:00 PM CDT Office Visit Department of Family Medicine, [facility], in [place], [place] [address] [place] [phone] Mercedez Correa, P.A.-C., P.A. Cough Acute (Primary Dx); Thrombocytopenia (HCC) from Last 3 Months Allergies Active Allergy Reactions Criticality Noted Date [...] Diagnosed Date Atherosclerotic Heart Diseas e Of [place] Coronary Artery Without Angina Pectoris 09/01/2023 Myocardial Infarction Old 09/01/2023 Coronary Stent Status Post 09/01/2023 Family History Coronary Artery Disease Elevated Lipoprotein A 09/01/2023 Diabetes Mellitus Type 2 09/01/2023 Hypertension Essential Primary 09/01/2023 Hyperlipidemia On Treatment 09/01/2023 Apnea Sleep Obstructive 06/14/2021 Overview (06/14/2021): Added automatically from request for surgery [id number] Immunizations Name Administration Dates Next Due Rabies, intramuscular, historical 2012,05/30/2013,05/17/2013, 013,05/04/2013,04/19/2013,04/15/2013 SARS-COV-2 (COVID-19) - PFIZ ER (Discontinued)(12 years or older) 07/19/2021,12/31/2020,11/29/2020 SARS-COV-2 (COVID-19) - PFIZ ER BIVALENT TS(Discontinued)(12 YEARS OR OLDER) 06/03/2022 Tdap 04/15/2013 Social History Tobacco Use Types Packs/Day Years [...] week 12/14/2022 How often do you attend [facility] or adventist services? Patient declined 12/14/2022 Do you belong to any clubs o r organizations such as jewish groups, unions, fraternal or athletic groups, or [...] medical care, and heating? Patient declined 12/14/2022 [facility] - [...] place to sleep or slept in a halfway (including now)? Patient refused 12/14/2022 Nutrition Answer [...] Body Mass Index 31.06 09/01/2023 12:08 PM SIGNAL MECHANIC Plan of Treatment Not on file Medical Devices Implanted Type Area Paper Core Machine Operator Device Identifier Shelf Expiration Date Model / [...] A1C, B Routine 09/01/2023 11: 48 AM SIGNAL MECHANIC Atherosclerotic Heart Disease Of [place] Coronary Artery Without Angina Pectoris Diabetes Mellitus Type 2 (HCC) LIPID PANEL, S Routine 09/01/2023 11:48 AM SIGNAL MECHANIC Atherosclerotic Heart Disease Of [place] Coronary Artery Without Angina Pectoris CREATININE WITH EGFR, S/P Routine 09/01/2023 11:48 AM SIGNAL MECHANIC Atherosclerotic Heart Disease Of [place] Coronary Artery Without Angina Pectoris from Last [...] Correa P.A.-C., P.A. LAB BLOOD ADD -ON [facility] [address] [place] [address], [facility] OWAT [facility] in [place] [address] [place] [address] * (ABNORMAL) Lipid Panel (09/01/2023 11:48 AM SIGNAL MECHANIC) Triglycerides 179(H) mg/dL 09/01/2023 12:57 PM SIGNAL MECHANIC DTL Comment: ----REFERENCE VALUE---- Normal: <150 mg/dL Borderline High: 150-199 mg/dL High: 200-499 mg/dL Very High: > or =500 mg/dL Cholesterol, Total 149 mg/dL 2023 12:57 PM SIGNAL MECHANIC DTL Comment: ----REFERENCE VALUE---- Desirable: < 200 mg/dL Borderline High: 200 - 239 mg/dL High: > or = 240 mg/dL Cholesterol, LDL, Calculated 83 mg/dL 09/01/2023 12:57 PM SIGNAL MECHANIC DTL Comment: ----REFERENCE VALUE---- Desirable: <100 mg/dL Above Desirable: 100-129 mg/dL Borderline High: 130-159 mg/dL High: 160-189 mg/dL Very High: >=190 mg/dL ----ADDITIONAL INFORMATION---- LDL cholesterol calculated using the Ortiz/NIH equation. Cholesterol, HDL, S 35(L) >=40 mg/dL 09/01/2023 12:57 PM SIGNAL MECHANIC DTL Cholesterol, Non-HDL, Calculated 114 mg/dL 09/01/2023 12:57 PM SIGNAL MECHANIC DTL Comment: ----REFERENCE VALUE---- Desirable: <130 mg/dL Above Desirable: 130-159 mg/dL Borderline High: 160-189 mg/dL High: 190-219 mg/dL Very High: > or =220 mg/dL Fasting (8 HR or more) Yes 09/01/2023 12:38 PM SIGNAL MECHANIC DTL Blood (Blood, Venous) 09/01/2023 11:48 AM SIGNAL MECHANIC 09/01/2023 12:38 PM SIGNAL MECHANIC Lorena Marroquin APRN, C.N.P., D.N.P. LA B BLOOD ADD-ON [facility] [address] [facility] [address] [place] [address] * (ABNORMAL) Hemoglobin A1c (09/01/2023 11:48 AM SIGNAL MECHANIC) Hemoglobin A1c, B 6.7(H) 4.0 - 5.6 % 09/01/2023 12:52 PM SIGNAL MECHANIC DTL Comment: Hemoglobin A1c values greater than or equal to 6.5 percent are diagnostic for diabetes mellitus. ??Diagnosis should be confirmed by repeat testing. ??In diabetic patients, HbA1c goals should be discussed with healthcare provider. Blood (Blood, Venous) 09/01/2023 11:48 AM SIGNAL MECHANIC 09/01/2023 12:20 PM SIGNAL MECHANIC Thelma Chirinos APRNNJudi, Maria Del Rosario MITCHELL BLOOD ADD-ON Performing Organization Address City/[facility] Co de Phone Number [facility] [address] [place] [address], [facility] [address] [place] [address] * Creatinine with Estimated GFR (09/01/2023 11:48 AM SIGNAL MECHANIC) Creatinine 1.04 0.74 - 1.35 mg/dL 09/01/2023 12:57 PM SIGNAL MECHANIC DTL Estimated GFR (eGFR) 86 >=60 mL/min/BSA 09/01/2023 12:57 PM SIGNAL MECHANIC DTL Comment: Estimated GFR calculated using the 2020 CKD_EPI creatinine equation. Blood (Blood, Venous) 09/01/2023 11:48 AM SIGNAL MECHANIC 09/01/2023 12:38 PM SIGNAL MECHANIC Thelma Chirinos APRNN.Ino, Maria Del Rosario MITCHELL BLOOD ADD-ON Performing Organization Address City/[facility] Co de Phone Number [facility] [address] [place] [address], [facility] [address] [place] [address] from Last 3 Months or Most Recently Relevant to Health Maintenance Care Teams Managing Director Relationship Specialty Start Date End Date Elsewhere, Pcp PCP - General Internal Medicine 02/05/22
--- OUTSIDE RECORDS SUMMARY | 2024-03-17 12:53 | XMS_ITS ---
Author Organization [facility] Address [address] [place] [address] Care Team Providers Care Butadiene Convertor Operator Name Role Phone Unavailable Unavailable Unavailable Surgery Details Not on file Complications Check Surgery Details section. Procedure Estimated Blood Loss Check Surgery Details section. Procedure Findings Check Surgery Details section. Procedure Specimens Taken Check Surgery Details section.
--- NOTE | 2024-03-17 13:54 | P.STN_ITS ---
Stress Test Note Date Date Seen: 03/17/24 Date of test: 03/17/24 Providers Referring provider: Kahlil Rouse Primary care provider: Kahlil Rouse Stress test physician: Mami Bolton Stress Test Note Stress test ordered: Stress Echo Indication for test: Increasing fatigue, history of ASCVD with prior stent place ment Stress test medicine: Definity Results discussion: Resting EKG: Sinus rhythm, 71 beats per minute. Flipped T-waves lead V1 without any ST segment change. Resting blood pressure: 130/90 Stress test: Patient was consented on exercise treadmill Yaya protocol stress echo. Patient exercised to 10 minutes 2nd, stopping as he had reached his target heart rate and was at his limits of his exercise capacity. This was equivocal into 11.7 Mets. He reached a maximum heart rate of 150 beats per minute which was 105% of a calculated target heart rate of 142. He had a maximum blood pressure of 162/82 giving him a rate pressure product of 21,546. Definity was used. He had no arrhythmia, no chest pain or concerning symptoms. There was no discernible evident ischemic change meeting criteria. Await echo images to couple this for a full formal diagnostic. Impression: Subjectively negative, objectively negative EKG portion of this stress echo. Follow up suggested: Patient was discharged from a stress test in stable condition. He will wait for the cardiology reading of the echo to couple this for a full formal diagnostic report. He plans to hear from his primary provider regarding the final report.
[2024-03-17] MEDS: PERFLUTREN LIPID MICROSPHERES 2 ML VIAL IV (14:10)
[2024-03-17 14:11] VITALS: BP 148/74; PULSE 93; RESP 18
== END 2024-03-17 14:00 | disposition home or self-care (01) ==
LOC: STRESS 12:50
PROVIDERS: PCP Internal Medicine; Visit Provider Internal Medicine
DX: R53.83 Other fatigue (principal); Z95.5 Presence of coronary angioplasty implant and graft
CPT/HCPCS: 93016; 93325; 93351; Q9957

== ENCOUNTER 2024-07-13 09:51 | Outpatient (CLI) | payer OTHER, SELFPAY | END 2024-07-13 09:52 | disposition home or self-care (01) | PROVIDERS: PCP Internal Medicine; Visit Provider Internal Medicine | DX: Z12.5 Encounter for screening for malignant neoplasm of prostate (principal) | CPT/HCPCS: G0103 ==

== ENCOUNTER 2024-07-18 06:27 | Day surgery (SDC) | payer OTHER, SELFPAY ==
[2024-07-18] VITALS (11 sets, daily range): BP systolic 140–164; BP diastolic 92–111; PULSE 61–80; RESP 16; TEMP 36.3–36.6; O2SAT 92–98; BMI 29.9
--- OUTSIDE RECORDS SUMMARY | 2024-07-18 06:33 | XMS_ITS | Clinical Summary ---
Author Organization [facility] Address [address] [place] [address] Care Team Providers Care Commercial Drone Pilot Name Role Phone Elsewhere, Pcp Primary Care Provider Unavailabl e Source Comments Patient records contain information from all sites at [facility]. For routine questions regarding patient records, call [phone] during business hours, M-F 8:00 AM - 5:00 PM Central Time. Record requests for emergency care only can be directed to [phone] at any time.[facility] Allergies Active Allergy Reactions Criticality Noted Date Comments Cat Dander Other (see comments) 12/16/2022 Medications LORazepam (ATIVAN) 0.5 mg tablet Take 0.5 [...] 60 mg by mouth daily. 08/24/2023 Active albuterol-budes onide 90-80 mcg/actuation HFA aerosol inhaler Inhale 2 sprays as needed. 07/17/2022 Active atorvastatin (LIPITOR) 40 mg tablet Take 1 tablet (40 mg total) by mouth daily. 90 tablet 3 09/03/2023 5 Active predniSONE (DELTASONE) 20 mg tablet Take 2 tablets (40 mg total) by mouth daily. 10 tablet 12/19/2023 Active Active Problems Problem Noted Date Diagnosed Date Atherosclerotic Heart Diseas e Of [place] Coronary Artery Without Angina Pectoris 09/01/2023 Myocardial Infarction Old 09/01/2023 Coronary Stent Status Post 09/01/2023 Family History Coronary Artery Disease 4 Elevated Lipoprotein A 09/01/2023 Diabetes Mellitus Type 2 09/01/2023 Hypertension Essential Primary 09/01/2023 Hyperlipidemia On Treatment 09/01/2023 Apnea Sleep Obstructive 06/14/2021 Overview (06/14/2021): Added automatically from request for surgery [id number] Immunizations Name Administration Dates Next Due Rabies, [...] How often do you attend chur or rastafarian services? Patient declined 12/14/2022 Do you belong to any clubs o r organizations such as hinduism groups, unions, fraternal or athletic groups, or [...] medical care, and heating? Patient declined 12/14/[address] [facility] [place] of Occupat ional Health - Occupational Stress [...] Date Recorded Dental: Regular Dentist Yes 09/07/19 23 Employment Answer Date Recorded Employment status Employed and actively working without restrictions 12/14/2022 Education Answer Date Recorded What is the highest level of school you have completed or the highest degree you have received? Some college, no degree 12/14/2022 Sex and Gender Information Value Date Recorded Sex Assigned at Male 12/14/2022 8:58 PM CDT Legal Sex Male 3:13 PM CDT Gender Identity Male 12/18/2022 2:56 PM CDT Sexual Orientation Straight 12/14/2022 8: 58 PM CDT Last Filed Vital Signs Vital Sign Reading Time Taken Comments Blood Pressure 120/55 12/19/2023 12:43 PM CDT Pulse 74 12/19/2023 12:43 PM CDT Temperature 36 C (96.8 F) 02/05/2022 1:52 PM CDT Respiratory Rate 20 12/19/2023 12:43 PM CDT Oxygen Saturation 98% 12/19/2023 12:43 PM CDT Inhaled Oxygen Concentration - - Weight 85.9 kg (189 lb 6 oz) 12/19/2023 12:43 PM CDT Height 166.3 cm (5' 5.47) 09/01/2023 12:08 PM [facility] Body Mass Index 31.06 09/01/2023 12:08 PM HANDER IN Plan of Treatment Upcoming Encounters Date Type Department Care Team (Latest Contact Info) Description 08/22/2024 8:45 AM HANDER IN Clinical Communication Virtual Review in [place], [place] [address] [place] [address] 08/23/2024 11:00 AM HANDER IN Appointment Department of Laboratory Medicine and Pathology, [facility], in [address] [phone] Lorena Marroquin APRN, C.N.P., D.N.P. [address] [place] [phone] 08/23/2024 11:20 AM HANDER IN Ancillary Procedure Department of Cardiovascular Medicine in [address] [phone] Lorena Marroquin APRN, C.N.P., D.N.P. [address] [place] [phone] 08/23/2024 1:00 PM HANDER IN Office Visit Department of Cardiovascular Medicine in [address] [phone] Lorena Marroquin APRN, C.N.P., D.N.P. [address] [place] [phone] Health Maintenance Due Date Last Done Comments CT Colonography 1970 Cologuard 1970 Colonoscopy 1970 Colorectal Cancer Screening 1970 Diabetic Office Visit with Foot Exam 1970 Dilated Eye Exam 1970 FIT 1970 HIV Screening 1970 Hepatitis C Screening 1970 Urine Albumin 1970 Pneumococcal vaccine (0-64 years) (1 of 2 - PCV) 1976 Hepatitis B Vaccines (1 of 3 - 19+ 3-dose series) 1989 Zoster Vaccines (1 of 2) 2020 Depression Screening (Annual PHQ-2) 08/17/2023 Hemoglobin A1C 03/01/2024 09/01/2023, 12/18/2022 COVID-19 Vaccine ( season) 2024 06/03/2022, 07/19/2021, 12/31/2020, Additional history exists Influenza Vaccine (#1) 2024 07/17/2022, 2021 Creatinine Level (Kidney Function Test) 09/01/2024 09/01/2023, 12/18/2022 Office Visit for Blood Pressure Check / Re-check 12/18/2024 12/19/2023 Lipid (Cholesterol) Screening 09/01/2028 09/01/2023, 12/18/2022 DTaP,Tdap,and Td Vaccines (3 - Td or Tdap) 07/17/2032 07/17/2022, 04/15/2013 IPV Vaccines Aged Out No longer eligi ble based on patient's age to complete this topic Medical Devices Implanted Type Area Government Contracts Manager Device Identifier Shelf Expiration Date Model / Serial / Lot Cardiac Stent Cardiac Stent Heart Description:3 stents Procedures Procedure Name Priority Date/Time Associated Diagnosis Comments HEMOGLOBIN A1C, B Routine 09/01/2023 11: 48 AM HANDER IN Atherosclerotic Heart Disease Of [place] Coronary Artery Without Angina Pectoris Diabetes Mellitus Type 2 (HCC) LIPID PANEL, S Routine 09/01/2023 11:48 AM HANDER IN Atherosclerotic Heart Disease Of [place] Coronary Artery Without Angina Pectoris CREATININE WITH EGFR, S/P Routine 09/01/2023 11:48 AM HANDER IN Atherosclerotic Heart Disease Of [place] Coronary Artery Without Angina Pectoris from Last 3 Months or Most Recently Relevant to Health Maintenance Results * (ABNORMAL) Lipid Panel (09/01/2023 11:48 AM HANDER IN) Triglycerides 179(H) mg/dL 09/01/2023 12:57 PM HANDER IN DTL Comment: ----REFERENCE VALUE---- Normal: <150 mg/dL Borderline High: 150-199 mg/dL High: 200-499 mg/dL Very High: > or =500 mg/dL Cholesterol, Total 149 mg/dL 2023 12:57 PM HANDER IN DTL Comment: ----REFERENCE VALUE---- Desirable: < 200 mg/dL Borderline High: 200 - 239 mg/dL High: > or = 240 mg/dL Cholesterol, LDL, Calculated 83 mg/dL 09/01/2023 12:57 PM HANDER IN DTL Comment: ----REFERENCE VALUE---- Desirable: <100 mg/dL Above Desirable: 100-129 mg/dL Borderline High: 130-159 mg/dL High: 160-189 mg/dL Very High: >=190 mg/dL ----ADDITIONAL INFORMATION---- LDL cholesterol calculated using the Ortiz/NIH equation. Cholesterol, HDL, S 35(L) >=40 mg/dL 09/01/2023 12:57 PM HANDER IN DTL Cholesterol, Non-HDL, Calculated 114 mg/dL 09/01/2023 12:57 PM HANDER IN DTL Comment: ----REFERENCE VALUE---- Desirable: <130 mg/dL Above Desirable: 130-159 mg/dL Borderline High: 160-189 mg/dL High: 190-219 mg/dL Very High: > or =220 mg/dL Fasting (8 HR or more) Yes 09/01/2023 12:38 PM HANDER IN DTL Blood (Blood, Venous) 09/01/2023 11:48 AM HANDER IN 09/01/2023 12:38 PM HANDER IN us Lorena Marroquin APRN, C.N.P., D.N.P. LAB BLOOD ADD-ON Final Result [facility] [address] [place] [address], [facility] [place] [address] [place] [address] * (ABNORMAL) Hemoglobin A1c (09/01/2023 11:48 AM HANDER IN) Hemoglobin A1c, B 6.7(H) 4.0 - 5.6 % 09/01/2023 12:52 PM HANDER IN DTL Comment: Hemoglobin A1c values greater than or equal to 6.5 percent are diagnostic for diabetes mellitus. Diagnosis should be confirmed by repeat testing. In diabetic patients, HbA1c goals should be discussed with healthcare provider. Blood (Blood, Venous) 09/01/2023 11:48 AM HANDER IN 09/01/2023 12:20 PM HANDER IN Lorena Marroquin APRN, C.N.P., D.N.P. LAB BLOOD ADD-ON Final Result Performing Organization Address City/[facility]/ZIP Co de Phone Number [facility] [address] [place] [address], [facility] [place] [address] [place] [address] * Creatinine with Estimated GFR (09/01/2023 11:48 AM HANDER IN) Pathologist [facility] Creatinine 1.04 0.74 - 1.35 mg/dL 09/01/2023 12:57 PM HANDER IN DTL Estimated GFR (eGFR) 86 >=60 mL/min/BSA 09/01/2023 12:57 PM HANDER IN DTL Comment: Estimated GFR calculated using the 2020 CKD_EPI creatinine equation. Blood (Blood, Venous) 09/01/2023 11:48 AM HANDER IN 09/01/2023 12:38 PM HANDER IN Lorena Marroquin APRN, C.N.P., D.N.P. LAB BLOOD ADD-ON Final Result [facility] [address] [place] [address], [facility] [place] [address] [place] [address] from Last 3 Months or Most Recently Relevant to Health Maintenance Insurance [employer] EM[employer]EE Care Teams Commercial Drone Pilot Relationship Specialty Start Date End Date Elsewhere, Pcp PCP - General Internal Medicine 02/05/22
--- OUTSIDE RECORDS SUMMARY | 2024-07-18 06:33 | XMS_ITS | Referral Summary ---
Author Organization [facility] Address [address] [place] [address] Care Team Providers Care Security Operations Engineer Name Role Phone Elsewhere, Pcp Primary Care Provider Unavailabl e Source Comments Patient records contain information from all sites at [facility]. For routine questions regarding patient records, call [phone] during business hours, M-F 8:00 AM - 5:00 PM Central Time. Record requests for emergency care only can be directed to [phone] at any time.[facility] Allergies Active Allergy Reactions Criticality Noted [...] Diagnosed Date Atherosclerotic Heart Diseas e Of [place] Coronary Artery Without Angina Pectoris 09/01/2023 Myocardial Infarction Old 09/01/2023 Coronary Stent Status Post 09/01/2023 Family History Coronary Artery Disease 4 Elevated Lipoprotein A 09/01/2023 Diabetes Mellitus Type 2 09/01/2023 Hypertension Essential Primary 09/01/2023 Hyperlipidemia On Treatment 09/01/2023 Apnea Sleep Obstructive 06/14/2021 Overview (06/14/2021): Added automatically from request for surgery [id number] Immunizations Name Administration Dates Next Due Rabies, [...] week 12/14/2022 How often do you attend [facility] or yarsani services? Patient declined 12/14/2022 Do you belong to any clubs o r organizations such as jew groups, unions, fraternal or athletic groups, or [...] medical care, and heating? Patient declined 12/14/2022 [facility] of Occupat ional Health - Occupational Stress [...] declined 12/14/2022 Housing Stability Vital Sign Answer Idon e Recorded In the last 12 months, [...] place to sleep or slept in a fci (including now)? Patient refused 12/14/2022 Nutrition Answer [...] 166.3 cm (5' 5.47) 09/01/2023 12:08 PM [facility] Body Mass Index 31.06 09/01/2023 12:08 PM ELECTRIC CAR OPERATOR Plan of Treatment Upcoming Encounters Date Type Department Care Team (Latest Contact Info) Description 08/22/2024 8:45 AM ELECTRIC CAR OPERATOR Clinical Communication Virtual Review in [address] [phone] 08/23/2024 11:00 AM ELECTRIC CAR OPERATOR Appointment Department of Laboratory Medicine and Pathology, [facility] in [address] [phone] Lorena Marroquin APRN, C.N.P., D.N.P. [address] [place] [phone] 08/23/2024 11:20 AM ELECTRIC CAR OPERATOR Ancillary Procedure Department of Cardiovascular Medicine in [address] [phone] Lorena Marroquin APRN, C.N.P., D.N.P. [address] [place] [phone] 08/23/2024 1:00 PM ELECTRIC CAR OPERATOR Office Visit Department of Cardiovascular Medicine in [address] [phone] Lorena Marroquin APRN, C.N.P., D.N.P. [address] [place] [phone] Medical Devices Implanted Type Area Power Reactor Supervisor Device Identifier Shelf Expiration Date Model / Serial / Lot Cardiac Stent Cardiac Stent Heart Description:3 stents Procedures Procedure Name Priority Date/Time Associated Diagnosis Comments HEMOGLOBIN A1C, B Routine 09/01/2023 11: 48 AM ELECTRIC CAR OPERATOR Atherosclerotic Heart Disease Of [place] Coronary Artery Without Angina Pectoris Diabetes Mellitus Type 2 (HCC) LIPID PANEL, S Routine 09/01/2023 11:48 AM ELECTRIC CAR OPERATOR Atherosclerotic Heart Disease Of [place] Coronary Artery Without Angina Pectoris CREATININE WITH EGFR, S/P Routine 09/01/2023 11:48 AM ELECTRIC CAR OPERATOR Atherosclerotic Heart Disease Of [place] Coronary Artery Without Angina Pectoris from Last 3 Months or Most Recently Relevant to Health Maintenance Results * (ABNORMAL) Lipid Panel (09/01/2023 11:48 AM ELECTRIC CAR OPERATOR) Triglycerides 179(H) mg/dL 09/01/2023 12:57 PM ELECTRIC CAR OPERATOR DTL Comment: ----REFERENCE VALUE---- Normal: <150 mg/dL Borderline High: 150-199 mg/dL High: 200-499 mg/dL Very High: > or =500 mg/dL Cholesterol, Total 149 mg/dL 2023 12:57 PM ELECTRIC CAR OPERATOR DTL Comment: ----REFERENCE VALUE---- Desirable: < 200 mg/dL Borderline High: 200 - 239 mg/dL High: > or = 240 mg/dL Cholesterol, LDL, Calculated 83 mg/dL 09/01/2023 12:57 PM ELECTRIC CAR OPERATOR DTL Comment: ----REFERENCE VALUE---- Desirable: <100 mg/dL Above Desirable: 100-129 mg/dL Borderline High: 130-159 mg/dL High: 160-189 mg/dL Very High: >=190 mg/dL ----ADDITIONAL INFORMATION---- LDL cholesterol calculated using the Ortiz/NIH equation. Cholesterol, HDL, S 35(L) >=40 mg/dL 09/01/2023 12:57 PM ELECTRIC CAR OPERATOR DTL Cholesterol, Non-HDL, Calculated 114 mg/dL 09/01/2023 12:57 PM ELECTRIC CAR OPERATOR DTL Comment: ----REFERENCE VALUE---- Desirable: <130 mg/dL Above Desirable: 130-159 mg/dL Borderline High: 160-189 mg/dL High: 190-219 mg/dL Very High: > or =220 mg/dL Fasting (8 HR or more) Yes 09/01/2023 12:38 PM ELECTRIC CAR OPERATOR DTL Blood (Blood, Venous) 09/01/2023 11:48 AM ELECTRIC CAR OPERATOR 09/01/2023 12:38 PM ELECTRIC CAR OPERATOR Yazan Chirinos APRN.N.P., D.N.P. LAB BLOOD ADD-ON Final Result Performing Organization Address [facility] de Phone Number [facility] [address] [place] [address], [facility] [address] [place] [address] * (ABNORMAL) Hemoglobin A1c (09/01/2023 11:48 AM ELECTRIC CAR OPERATOR) Hemoglobin A1c, B 6.7(H) 4.0 - 5.6 % 09/01/2023 12:52 PM ELECTRIC CAR OPERATOR DTL Comment: Hemoglobin A1c values greater than or equal to 6.5 percent are diagnostic for diabetes mellitus. Diagnosis should be confirmed by repeat testing. In diabetic patients, HbA1c goals should be discussed with healthcare provider. Blood (Blood, Venous) 09/01/2023 11:48 AM ELECTRIC CAR OPERATOR 09/01/2023 12:20 PM ELECTRIC CAR OPERATOR Yazan Chirinos APRN.N.P., D.N.P. LAB BLOOD ADD-ON Final Result Performing Organization Address [facility] de Phone Number [facility] [address] [place] [address], [facility] [address] [place] [address] * Creatinine with Estimated GFR (09/01/2023 11:48 AM ELECTRIC CAR OPERATOR) Creatinine 1.04 0.74 - 1.35 mg/dL 09/01/2023 12:57 PM ELECTRIC CAR OPERATOR DTL Estimated GFR (eGFR) 86 >=60 mL/min/BSA 09/01/2023 12:57 PM ELECTRIC CAR OPERATOR DTL Comment: Estimated GFR calculated using the 2020 CKD_EPI creatinine equation. Blood (Blood, Venous) 09/01/2023 11:48 AM ELECTRIC CAR OPERATOR 09/01/2023 12:38 PM ELECTRIC CAR OPERATOR us Lorena Edouard Cara HOOK, C.N.P., D.N.P. LAB BLOOD ADD-ON Final Result [facility] [address] [place] [address], [place] DTL [facility] [address] [place] [address] from Last 3 Months or Most Recently Relevant to Health Maintenance Insurance [facility] [employer] Care Teams Security Operations Engineer Relationship Specialty Start Date End Date Elsewhere, Pcp PCP - General Internal Medicine 02/05/22
--- OUTSIDE RECORDS SUMMARY | 2024-07-18 06:33 | XMS_ITS ---
Author Organization [facility] Address [address] [place] [address] Care Team Providers Care Mac Developer Name Role Phone Unavailable Unavailable Unavailable Surgery Details Not on file Complications Check Surgery Details section. Procedure Estimated Blood Loss Check Surgery Details section. Procedure Findings Check Surgery Details section. Procedure Specimens Taken Check Surgery Details section.
--- NOTE | 2024-07-18 07:18 | P.GSOP_ITS ---
Operative Note Date of procedure: 07/18/24 Pre-op diagnosis: 1. Symptomatic umbilical hernia. Post-op diagnosis: 1. Umbilical hernia with incarcerated preperitoneal fat. Type of Procedure: 1. Umbilical hernia repair without mesh. Indications: 54-year-old male was seen in clinic for evaluation of an umbilical bulge. Patient had that bulge for multiple years. He was scheduled to have this repaired a long time ago but sustained a heart attack over a year ago and had 3 cardiac stents placed. Patient states that his umbilical bulge continues to be out and is usually reducible. Patient has pain with reducing the hernia. Patient is very active and would like to get this repaired. On clinical exam at the superior aspect of the umbilicus there was larger than grape sized umbilical bulge noted. This was reducible. The fascial defect was approximately 1 cm. Given patient's clinical history and his physical exam, an open umbilical hernia repair was recommended. The procedure was discussed in detail. The risks associated procedure including infection, bleeding, injury to intra-abdominal organs, and hernia recurrence were all discussed with the patient, he agreed to proceed. Procedure Description: After discussing the risks and benefits of the procedure, the patient signed i nformed consent.? The operative site was marked and the patient was brought to the operating room and placed on the operating table in supine position.? Care was taken to pad the patient's pressure points.?? The patient was then intubated by anesthesia.?? The operative site was then prepped and draped in the usual sterile fashion.? A time-out was then performed. A curvilinear skin incision was made with a scalpel just below umbilicus. Subcutaneous tissue was dissected with electrocautery down to the hernia sac and anterior fascia. The hernia sac was dissected off of the anterior fascia and posadas bcutaneous fat around the fascial defect was dissected away from the fascial defect with cautery. Incarcerated preperitoneal fat was noted in the hernia sac. With manipulation of the hernia sac, I was able to reduce it into preperitoneal space. The fascial defect was only 6 mm with strong surrounding fascia. Since the fascial defect was small, I elected to repair it using 0-0 Neurolon interrupted stitches. Hemostasis was achieved with cautery. Local anesthetic was injected into subcutaneous tissues. An umbilicus was tacked down with interrupted 3-0 Vicryl stitches. Subdermal layer was closed with interrupted sutures using 3-0 Vicryl. Skin was closed with 4-0 Monocryl using subcuticular stitch. Steri strips were applied over the incision. I then placed a folded sterile 2 x 2 into the umbilicus and 4x4 gauze over the incision and covered it with tape. All counts were correct at the end of the case. Patient tolerated the procedure well and was transferred to PACU without any complications. Findings: Small fascial defect repaired without mesh. Anesthesia: GETA Surgeon: Brent Siddiqui MD Estimated blood loss (mL): 5 Condition: stable Disposition: PACU
--- NOTE | 2024-07-18 07:18 | W.PM.H&PU ---
History & Physical Update History & Physical Update H&P Reviewed and patient assessed: No changes noted
[2024-07-18] MEDS: BUPIVACAINE 0.25% 30 ML INJECTION (07:42)
[2024-07-18] MEDS: LIDOCAINE 1%-EPI 1:100,000 20 ML INFILTRATI (07:42)
[2024-07-18] MEDS: CEFAZOLIN 2 GM INJ IVP (07:44)
--- NOTE | 2024-07-18 08:48 | W.ANESCHARGE ---
Anesthesia Charges Start Date/Time Anesthesia Start Date: 07/18/24 Anesthesia Start Time: 07:26 Stop Date/Time Anesthesia Stop Date: 07/18/24 Anesthesia Stop Time: 08:44
[2024-07-18] MEDS: 0.9 % SODIUM CHLORIDE 500 ML 500 ML IV (08:49)
--- NOTE | 2024-07-18 09:40 | W.ANESCHARGE ---
Anesthesia Charges Start Date/Time Anesthesia Start Date: 07/18/24 Anesthesia Start Time: 07:26 Stop Date/Time Anesthesia Stop Date: 07/18/24 Anesthesia Stop Time: 08:44
[2024-07-18] MEDS: HYDROCODONE-ACETAMIN 5-325 MG 1 TAB PO (09:45)
== END 2024-07-18 10:10 | disposition home or self-care (01) ==
PROVIDERS: PCP Internal Medicine; Visit Provider Surgery
PROC: (CPT 49592; principal; 2024-07-18 07:30)
DX: K42.0 Umbilical hernia with obstruction, without gangrene (principal); E11.9 Type 2 diabetes mellitus without complications; I10 Essential (primary) hypertension
CPT/HCPCS: 49592; 00750; 00830; 00840; 82962; A9270; J0665; J0690; J1100; J1171; J1885; J2250; J2405; J2704; J2710; J3010; J7030

== ENCOUNTER 2025-01-19 10:32 | Outpatient (CLI) | payer OTHER, SELFPAY | END 2025-01-19 10:33 | disposition home or self-care (01) | PROVIDERS: PCP Internal Medicine; Visit Provider Internal Medicine | DX: I10 Essential (primary) hypertension (principal); E11.9 Type 2 diabetes mellitus without complications; R53.83 Other fatigue; F41.9 Anxiety disorder, unspecified; I73.00 Raynaud's syndrome without gangrene; R42 Dizziness and giddiness | CPT/HCPCS: 80053; 80061 ==

== ENCOUNTER 2025-04-05 17:58 | Emergency (ER) | payer OTHER, SELFPAY ==
[2025-04-05 18:11] VITALS: BP 151/82; PULSE 82; RESP 20; TEMP 36.7; O2SAT 97
--- NOTE | 2025-04-05 18:41 | CRLHL7_ITS ---
For Patients: As a result of the Century Cures Act, medical imaging exams and procedure reports are released immediately into your electronic medical record. You may view this report before your referring provider. If you have questions, please contact your health care provider. INDICATION: Chest pain. TECHNIQUE: Chest 2 views. COMPARISON: Chest radiographs dated 10/03/2018. FINDINGS: Unremarkable cardiomediastinal contours. Minimal hazy right basilar opacity. No sign of pleural effusion. No pneumothorax. No acute osseous or soft tissue findings. IMPRESSION: Minimal hazy right basilar opacity, which may reflect atelectasis, aspiration, or pneumonia. Dictated by Ryan Daily MD @ 04/05/2025 7:05:28 PM (Electronically Signed)
[2025-04-05 19:02] LABS: Hematocrit 37.0 % (37.0-53.0); Hemoglobin* 13.3 gm/dL (13.5-17.5); Immature Granulocytes Abs Auto 0.01 K/uL (0.00-0.30); Immature Granulocytes Pct Auto 0.2 %; Lymphocytes Absolute Auto 1.29 K/uL (0.90-2.90); Mean Corpuscular HGB Conc 36 gm/dL (32-36); Mean Corpuscular Hemoglobin 32 pg (26-34); Mean Corpuscular Volume 89 fL (80-100); RDW Coefficient of Variation % 11.5 % (11.5-15.5); Red Blood Count 4.17 m/uL (4.30-5.90); White Blood Count* 5.09 K/uL (4.50-11.00)
--- NOTE | 2025-04-05 19:14 | ED.GENADULT ---
HPI - General Adult General Date Seen: 04/05/25 Chief complaint: Shortness of Breath/Dyspnea Stated complaint: SOB, Dizzy, heart attack 2 yrs ago Time Seen by Provider: 04/05/25 18:28 Source: patient Mode of arrival: ambulatory Limitations: no limitations History of Present Illness HPI narrative: Patient is a 54-year-old male with a history of [place] presenting to the emergency department for chest discomfort, mild lightheadedness that started this morning. States since this morning's been feeling some slight lightheadedness, chills, chest pain. States the chest pain has only helped and a couple times today and is his left upper chest. Describes a dull burning sensation that only occurs after he eats. Took some antacids prior to arrival and states chest pain is now completely gone. Does state he is having some very mild shortness of breath. Currently states he feels asymptomatic. Not aware of any sick contacts. States he only came in because his made him as he does not feel like his symptoms are very serious. Had multiple stents placed 2 years ago and states at that time he was having left arm numbness and much worse chest pain. States today symptoms feel nothing like his previous [place]. no other concerns noted. Was recently taken off metoprolol in January. Did have a recent stress test done 1 year ago showing no concerning abnormalities Related Data Home Medications ?Medication ?Instructions ?Recorded ?Confirmed albuterol 90 mcg/actuation aerosol 2 spray inhalation Q4H PRN 07/17/22 04/05/25 inhaler rosuvastatin 20 mg tablet 20 mg PO QPM 04/05/25 04/05/25 Previous Rx's ?Medication ?Instructions ?Recorded zolpidem 5 mg tablet (Ambien) 5 mg PO QHS PRN insomnia #30 tabs 09/06/24 lorazepam 0.5 mg tablet 0.5 mg PO BID PRN agitation #60 01/25/25 tabs nifedipine 60 mg tablet,extended 60 mg PO QDAY Raynaud's #90 tabs 02/16/25 release Allergies Allergy/AdvReac Type Severity Reaction Status Date / Time Cat hair extract Allergy Intermediate Difficulty Uncoded 01/19/25 10:09 Breathing Review of Systems Status of ROS: Reports: 10 or more systems reviewed and unremarkable except as noted in History and below [facility] Medical History Vision changes ?H53.9 - Unspecified visual disturbance (ICD-10) Raynauds disease ?I73.00 - Raynaud's syndrome without gangrene (ICD-10) Myocardial infarction ?I21.9 - Acute myocardial infarction, unspecified (ICD-10) Hypertension ?I10 - Essential (primary) hypertension (ICD-10) Diabetes ?E11.9 - Type 2 diabetes mellitus without complications (ICD-10) Gout ?M10.9 - Gout, unspecified (ICD-10) Umbilical hernia ?K42.9 - Umbilical hernia without obstruction or gangrene (ICD-10) Anxiety ?F41.9 - Anxiety disorder, unspecified (ICD-10) Surgical History S/P umbilical hernia repair, follow-up exam ?Z09 - Encounter for follow-up examination after completed treatment for conditions other than malignant neoplasm (ICD-10) Status post coronary artery stent placement ?Z95.5 - Presence of coronary angioplasty implant and graft (ICD-10) Social History Narrative: Patient admits to drinking alcohol. He is in real estate sales. What is your current living situation?: I presently have a place to live Problems where you live: no known problems In the past 12 months, utilities in danger of being shut off: no In past 12 months, lack of transportation kept you from medical appts, meetings, work, or getting things needed for daily living: no In the past 12 mos, have been you worried that your food would run out before you had money to buy more?: never true In the past 12 mos, the food you bought just didn't last and you didn't have money to buy more?: never true Smoking Status: Never smoker Second hand tobacco smoke exposure: No How often do you have a drink containing alcohol: 2-3 times a week How many standard drinks containing alcohol do you have on a typical day: 3 or 4 How often do you have six or more drinks on one occasion: Never AUDIT-C Alcohol total score: 4 Non-prescribed substance use: marijuana (any form) Caffeine: No How often does anyone, including family, friends and others, physically hurt you: never How often does anyone, including family, friends and others, insult or talk down to you: never How often does anyone, including family, friends and others, threaten you with harm: never How often does anyone, including family, friends and others, scream or curse at you: never Exam Narrative: Exam Narrative: Const: Well-nourished, Well-developed, in mild distress Eyes: PERRL, no conjunctival injection, and symmetrical lids HENT: Atraumatic external nose and ears. Moist mucous membranes. Neck: Symmetric, trachea midline, No thyromegaly. CVS: RRR, No murmurs or gallops. Peripheral pulses 2+ and equal in all extremities RESP: Unlabored respiratory effort. Clear to auscultation bilaterally. GI: Nontender/Nondistended, No rebound or guarding. MSK:Extremities w/o deformity, Normal Active ROM, no chest tenderness Skin: Warm, Dry. No rashes or lesions. Neuro: Normal Muscle tone, No focal neurological deficits. Psych: Awake, Alert, & Oriented x3. Appropriate mood and affect. Const: Vital Signs, click to edit/add: Vital Signs - 24 hr 04/05/25 18:11 Temperature 98.0 F Pulse Rate [Pulse Oximeter] 82 Respiratory Rate 20 Blood Pressure [Ri ght Upper Arm] 151/82 H Pulse Oximetry 97 Oxygen Delivery Me thod Room Air Course Vital Signs Vital signs: Initial Vital Signs Temperature 98.0 F 04/05/25 18:11 Temperature Source Temporal Artery Scan 04/05/25 18:11 Pulse Rate 82 04/05/25 18:11 Respiratory Rate 20 04/05/25 18:11 Blood Pressure 151/82 H 04/05/25 18:11 Blood Pressure Mean 105 04/05/25 18:11 Pulse Oximetry 97 04/05/25 18:11 Oxygen Delivery Method Room Air 04/05/25 18:11 Vital Signs Temperature 98.0 F 04/05/25 18:11 Pulse Rate 82 04/05/25 18:11 Respiratory Rate 20 04/05/25 18:11 Blood Pressure 151/82 H 04/05/25 18:11 Pulse Oximetry 97 04/05/25 18:11 Oxygen Delivery Method Room Air 04/05/25 18:11 Temperature 98.0 F 04/05/25 18:11 Pulse Rate 82 04/05/25 18:11 Respiratory Rate 20 04/05/25 18:11 Blood Pressure 151/82 H 04/05/25 18:11 Pulse Oximetry 97 04/05/25 18:11 Oxygen Delivery Method Room Air 04/05/25 18:11 Medical Decision Making MDM Narrative Medical decision making narrative: Patient is a 54-year-old male presenting for chest pain. The differential diagnosis of chest pain is broad and includes common etiologies such as musculoskeletal strain, GERD, pneumonia, etc. More serious etiologies considered include PE, coronary artery disease, pneumothorax, aortic dissection, aortic aneurysm. D-dimer ordered to rule out PE. EKG and troponin order to look for signs of her cardiac disease. Chest x-ray ordered to look for signs pneumonia or pneumothorax. Will also order viral swabs, CBC, BMP, magnesium. He is otherwise stable and my concern for aortic dissection or aortic aneurysm are low. Lab work shows no acute concerning abnormalities. EKG shows no concerning abnormalities. Troponin within normal limits. Considering symptoms have been going on since this morning I do not believe repeat troponin is necessary. D-dimer within normal limits in PE can not be ruled out. Chest x-ray shows possible right basilar opacity. This is not exactly consistent for his chest discomfort is but he has been having other signs of possible viral infection and I will treat him antibiotics for possible bacterial infection. He is considered high risk so I will put him on Augmentin and azithromycin via [facility] Lab Data Labs: Lab Results 04/05/25 Range/Units 18:52 WBC 5.09 (4.50-11.00) K/uL RBC 4.17 L (4.30-5.90) m/uL Hgb 13.3 L (13.5-17.5) gm/dL Hct 37.0 (37.0-53.0) % MCV 89 (80-100) fL MCH 32 (26-34) pg MCHC 36 (32-36) gm/dL RDW Coeff of Christopher 11.5 (11.5-15.5) % Plt Count 151 (140-440) K/uL Neut % (Auto) 63.1 (42.0-72.0) % Lymph % (Auto) 25.3 (20-44) % [place] % (Auto) 9.8 (0.0-11.0) % Eos % (Auto) 1.4 (0.0-7.0) % Baso % (Auto) 0.2 (0.0-3.0) % Neut # (Auto) 3.21 (1.7-7.0) K/uL Lymph # (Auto) 1.29 (0.90-2.90) K/uL [place] # (Auto) 0.50 (0.00-0.90) K/UL Eos # (Auto) 0.07 (0.00-0.50) K/uL Baso # (Auto) 0.01 (0.00-0.30) K/uL Abs Immat Gran (auto) 0.01 (0.00-0.30) K/uL Imm/Tot Granulo (auto) 0.2 % D-Dimer Quant (PE/DVT) 0.49 (0.00-0.50) ug/ml Sodium 136 (135-149) mmol/L Potassium 4.2 (3.6-5.1) mmol/L Chloride 102 (96-114) mmol/L Carbon Dioxide 27 (20-32) mmol/L Anion Gap 7 (7-15) mEq/L BUN 7 (7-30) mg/dL Creatinine 0.8 (0.5-1.5) mg/dL Estimated GFR 105 ml/min Glucose 188 H (60-115) mg/dL Calcium 9.6 (8.4-10.6) mg/dL Magnesium 1.8 (1.5-2.6) mg/dL Troponin I < 0.01 (0.01-0.04) ng/mL SARS-CoV-2 (PCR) Negative SARS-CoV-2 (Negative) Influenza Type A (PCR) Negative PCR FLU A (Negative) Influenza Type B (PCR) Negative PCR FLU B (Negative) RSV (PCR) Negative PCR RSV (Negative) ECG Data Attestation: I personally reviewed and interpreted this ECG as follows: Prior ECG tracings: not available for review Interpretation: Normal sinus rhythm with a rate of 88 beats per minute, normal intervals, normal axis, no ST or T-wave abnormalities Discharge Plan Discharge Clinical Impression: Pneumonia Qualifiers: Pneumonia type: due to unspecified organism Laterality: right Lung location: lower lobe of lung Qualified Code(s): J18.9 - Pneumonia, unspecified organism Patient Disposition: Home, Self-Care Condition: Stable Instructions: Pneumonia (ED) Additional 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 Return to emergency department for new or worsening symptoms. Follow-up with your primary care provider to make sure symptoms are resolving Prescriptions: No Action albuterol 90 mcg/actuation aerosol 2 spray inhalation Q4H PRN rosuvastatin 20 mg tablet 20 mg PO QPM zolpidem [Ambien] 5 mg tablet 5 mg PO QHS PRN (Reason: insomnia) Qty: 30 0RF Rx Instructions: may repeat once if no response in 30-60 minutes lorazepam 0.5 mg tablet 0.5 mg PO BID PRN (Reason: agitation) Qty: 60 0RF nifedipine 60 mg tablet extended release 60 mg PO QDAY Qty: 90 3RF Follow Up/Referrals: Kahlil Rouse MD [Primary Care Provider, Internal Medicine] Stand Alone Forms: Flyr Info Instructions
[2025-04-05 19:18] LABS: Slide Review Reflex No
[2025-04-05 19:26] LABS: D Dimer Quantitative* 0.49 ug/ml (0.00-0.50)
[2025-04-05 19:31] LABS: Chloride* 102 mmol/L (96-114); Potassium* 4.2 mmol/L (3.6-5.1); Sodium* 136 mmol/L (135-149)
[2025-04-05 19:34] LABS: Anion Gap 7 mEq/L (7-15); Blood Urea Nitrogen* 7 mg/dL (7-30); Calcium* 9.6 mg/dL (8.4-10.6); Carbon Dioxide* 27 mmol/L (20-32); Creatinine* 0.8 mg/dL (0.5-1.5); Estimated Glomerular Filt Rate 105 ml/min; Glucose* 188 mg/dL (60-115)
[2025-04-05 19:45] LABS: PCR FLU A Negative PCR FLU A (Negative); PCR FLU B Negative PCR FLU B (Negative); PCR RSV Negative PCR RSV (Negative); SARS PCR* Negative SARS-CoV-2 (Negative)
[2025-04-05 20:13] VITALS: BP 130/87; PULSE 86; RESP 18; TEMP 36.9; O2SAT 98
== END 2025-04-05 20:20 | disposition home or self-care (01) ==
PROVIDERS: Emergency Provider Student in an Organized Health Care Education/Training Program; PCP Internal Medicine
DX: J18.9 Pneumonia, unspecified organism (principal)
CPT/HCPCS: 36415; 71046; 80048; 83735; 84484; 85025; 85379; 87631; 93005; 99284

== ENCOUNTER 2025-05-28 17:31 | Inpatient (IN) | payer OTHER, SELFPAY ==
[2025-05-28] VITALS (42 sets, daily range): BP systolic 114–172; BP diastolic 79–135; PULSE 111–141; RESP 0–38; TEMP 36.6–38.5; O2SAT 82–100
--- NOTE | 2025-05-28 17:34 | ED_ITS ---
HPI - General Adult General Date Seen: 05/28/25 Chief complaint: Chest Pain Stated complaint: Potential Heart Attack Time Seen by Provider: 05/28/25 17:33 History of Present Illness HPI narrative: 55 yo M with history of coronary disease and previous [place] (had 3 stents placed after heart attack in [facility] sh few years ago. Now on baby aspirin, rosuvastatin, nifedipine. Off other blood pressure medications. Doing well from a cardiac standpoint.), Raynaud's disease, anxiety, history of exercise- induced asthma as a child, hypertension, prediabetes. He presents to the ER today from for evaluation of chest pain, shortness of breath, dizziness, nausea and vomiting, diarrhea. He does recall that he had pneumonia diagnosed in March over 6 weeks ago that was treated with a course of antibiotics and has gotten better. He has no persistent cough or trouble breathing or chest pain from that pneumonia. He has been healthy and well lately until today. This morning he started having a little bit of watery diarrhea. He took a shower this afternoon while in the shower started to feel a lot of tingling and swelling affecting both of his hands bilaterally. He thought he might be having allergic reactions took some Benadryl. At after that started to feel very dizzy and lightheaded and short of breath with some pain in his chest. He was nauseous and sweaty. He threw up several times at home (nonbilious, nonbloody, just food). He began to feel shaky and lightheaded and very weak. His heart rate went up. He called his who was out of the house at that time . He was transported here to the ER. Now that he is here in the ER he still feeling little bit short of breath. He is noted to be hypoxic on room air. Does not normally use oxygen. No other difficulty breathing lately. No recent leg swelling. No recent travel or immobilization Related Data Home Medications ?Medication ?Instructions ?Recorded ?Confirmed albuterol 90 mcg/actuation aerosol 2 spray inhalation Q4H PRN 07/17/22 05/28/25 inhaler Previous Rx's ?Medication ?Instructions ?Recorded nifedipine 60 mg tablet,extended 60 mg PO QDAY Raynaud 's #90 tabs 02/16/25 release lorazepam 0.5 mg tablet 0.5 mg PO BID PRN agitation #60 04/12/25 tabs zolpidem 5 mg tablet (Ambien) 5 mg PO QHS PRN insomnia #30 tabs 04/12/25 rosuvastatin 20 mg tablet 20 mg PO QPM #90 tabs Allergies Allergy/AdvReac Type Severity Reaction Status Date / Time Cat hair extract Allergy Intermediate Difficulty Uncoded 01/19/25 10:09 Breathing PFSH PFSH Medical History (Updated 05/28/25 @ 21:51 by Misa Perdaza MD) CAD (coronary artery disease) ?I25.10 - Atherosclerotic heart disease of [place] coronary artery without angina pectoris (ICD-10) Type 2 diabetes mellitus ?E11.9 - Type 2 diabetes mellitus without complications (ICD-10) History of panic attacks ?Z86.59 - Personal history of other mental and behavioral disorders (ICD-10) Hx of myocardial infarction ?I25.2 - Old myocardial infarction (ICD-10) Raynauds disease ?I73.00 - Raynaud's syndrome without gangrene (ICD-10) Myocardial infarction ?I21.9 - Acute myocardial infarction, unspecified (ICD-10) Hypertension ?I10 - Essential (primary) hypertension (ICD-10) Gout ?M10.9 - Gout, unspecified (ICD-10) Umbilical hernia ?K42.9 - Umbilical hernia without obstruction or gangrene (ICD-10) Anxiety ?F41.9 - Anxiety disorder, unspecified (ICD-10) Surgical History (Updated 05/28/25 @ 21:51 by Misa Pedraza MD) S/P umbilical hernia repair, follow-up exam ?Z09 - Encounter for follow-up examination after completed treatment for conditions other than malignant neoplasm (ICD-10) Status post coronary artery stent placement ?Z95.5 - Presence of coronary angioplasty implant and graft (ICD-10) Social History Narrative: Patient admits to drinking alcohol. He is in real estate sales. What is your current living situation?: I presently have a place to live Problems where you live: no known problems In the past 12 months, utilities in danger of being shut off: no In past 12 months, lack of transportation kept you from medical appts, meetings, work, or getting things needed for daily living: no In the past 12 mos, have been you worried that your food would run out before you had money to buy more?: never true In the past 12 mos, the food you bought just didn't last and you didn't have money to buy more?: never true Smoking Status: Never smoker Second hand tobacco smoke exposure: No How often do you have a drink containing alcohol: 2-3 times a week How many standard drinks containing alcohol do you have on a typical day: 3 or 4 How often do you have six or more drinks on one occasion: Never AUDIT-C Alcohol total score: 4 Non-prescribed substance use: marijuana (any form) Caffeine: No How often does anyone, including family, friends and others, physically hurt you : never How often does anyone, including family, friends and others, insult or talk down to you: never How often does anyone, including family, friends and others, threaten you with harm: never How often does anyone, including family, friends and others, scream or curse at you: never Exam Narrative: Exam Narrative: Constitutional: Appears well-developed and well-nourished. Alert. Conversant. Tremulous and tachycardic, actively vomiting during history (3 episodes of nonbloody, nonbilious emesis). Looks uncomfortable. Mentating normally. HENT: Head: Atraumatic. Nose: Nose normal. Mouth/Throat: Oral mucosa is clear and moist. Not desiccated or cracked. no trismus. Pharynx normal. Tonsils symmetric. No tonsillar enlargement, erythema, or exudate. Eyes: Conjunctivae normal. EOM normal. Pupils equal, round, and reactive to light. No scleral icterus. Neck: Normal range of motion. Neck supple. No tracheal deviation present. No JVD. No stridor. Cardiovascular: Tachycardic, regular rhythm. No gallop. No friction rub. No murmur heard. Symmetric radial and DP artery pulses . He does have white finger tips bilaterally and white toes bilaterally consistent with Raynaud's. Delayed cap refill in his finger tips and toes. Pulmonary/Chest: Effort normal. No stridor. No respiratory distress. No wheezes. No rales. No rhonchi . No tenderness. Abdominal: Soft. Bowel sounds normal. No distension. No mass. No tenderness. No rebound. No guarding. No palpable mass or umbilical or inguinal hernia. Musculoskeletal: RUE: Normal range of motion. No tenderness. No deformity LUE: Normal range of motion. No tenderness. No deformity RLE: Normal range of motion. No edema. No tenderness. No deformity LLE: Normal range of motion. No edema. No tenderness. No deformity Neurological: Alert and oriented to person, place, and time. Normal strength. CN II-VII intact. No sensory deficit. GCS eye subscore is 4. GCS verbal subscore is 5. GCS motor subscore is 6. Normal coordination Skin: Skin is warm and dry. No rash noted. No pallor. Normal capillary refill. Psychiatric: Normal mood. Normal affect. Const: Vital Signs, click to edit/add: Vital Signs - 24 hr 05/28/25 17:53 05/28/25 17:58 05/28/25 18:00 Temperature 97.8 F Pulse Rate 113 H 112 H Pulse Rate [Pulse Oximeter] 112 H Respiratory Rate 22 11 L 17 Blood Pressure Blood Pressure [Ri ght Upper Arm] 161/135 H Pulse Oximetry 86 L 90 90 Oxygen Delivery Me thod Room Air Nasal Cannula Nasal Cannula Oxygen Flow Rate 2 2 05/28/25 18:01 05/28/25 18:01 05/28/25 18:15 Temperature Pulse Rate 116 H 123 H Pulse Rate [Pulse Oximeter] Respiratory Rate 19 37 H Blood Pressure 118/94 H Blood Pressure [Ri ght Upper Arm] Pulse Oximetry 91 92 90 Oxygen Delivery Me thod Nasal Cannula Nasal Cannula Nasal Cannula Oxygen Flow Rate 2 2 2 05/28/25 18:17 05/28/25 18:42 05/28/25 18:45 Temperature Pulse Rate 124 H 125 H Pulse Rate [Pulse Oximeter] Respiratory Rate 24 38 H Blood Pressure 172/125 H Blood Pressure [Ri ght Upper Arm] Pulse Oximetry 90 82 L 97 Oxygen Delivery Me thod Nasal Cannula Nasal Cannula OxyMask Oxygen Flow Rate 2 2 5 05/28/25 18:46 05/28/25 18:47 05/28/25 19:00 Temperature Pulse Rate 125 H 126 H 118 H Pulse Rate [Pulse Oximeter] Respiratory Rate 18 25 H 18 Blood Pressure 149/91 H Blood Pressure [Ri ght Upper Arm] Pulse Oximetry 98 92 95 Oxygen Delivery Me thod OxyMask OxyMask OxyMask Oxygen Flow Rate 5 5 5 05/28/25 19:04 05/28/25 19:15 05/28/25 19:16 Temperature Pulse Rate 121 H 119 H 118 H Pulse Rate [Pulse Oximeter] Respiratory Rate 19 20 15 Blood Pressure 151/95 H 151/89 H Blood Pressure [Ri ght Upper Arm] Pulse Oximetry 96 95 96 Oxygen Delivery Me thod OxyMask OxyMask OxyMask Oxygen Flow Rate 5 3 3 05/28/25 19:30 05/28/25 19:31 05/28/25 19:32 Temperature Pulse Rate 118 H 119 H 118 H Pulse Rate [Pulse Oximeter] Respiratory Rate 24 17 22 Blood Pressure 149/89 H Blood Pressure [Ri ght Upper Arm] Pulse Oximetry 96 98 95 Oxygen Delivery Me thod OxyMask OxyMask OxyMask Oxygen Flow Rate 3 3 3 05/28/25 19:45 05/28/25 19:46 05/28/25 20:00 Temperature Pulse Rate 122 H 118 H 122 H Pulse Rate [Pulse Oximeter] Respiratory Rate 15 23 22 Blood Pressure 132/80 Blood Pressure [Ri ght Upper Arm] Pulse Oximetry 100 97 94 Oxygen Delivery Me thod OxyMask OxyMask OxyMask Oxygen Flow Rate 3 3 3 05/28/25 20:01 05/28/25 20:15 05/28/25 20:30 Temperature Pulse Rate 125 H 128 H 127 H Pulse Rate [Pulse Oximeter] Respiratory Rate 15 30 H 28 H Blood Pressure 136/90 H Blood Pressure [Ri ght Upper Arm] Pulse Oximetry 95 93 92 Oxygen Delivery Me thod OxyMask OxyMask Room Air Oxygen Flow Rate 3 3 05/28/25 20:31 05/28/25 20:32 05/28/25 20:45 Temperature 101.3 F H Pulse Rate 128 H 124 H 124 H Pulse Rate [Pulse Oximeter] Respiratory Rate 21 7 L 7 L Blood Pressure 128/85 Blood Pressure [Ri ght Upper Arm] Pulse Oximetry 92 93 92 Oxygen Delivery Me thod Room Air Oxygen Flow Rate 05/28/25 21:00 05/28/25 21:01 05/28/25 21:15 Temperature Pulse Rate 127 H 130 H 141 H Pulse Rate [Pulse Oximeter] Respiratory Rate 19 0 L 0 L Blood Pressure 121/79 Blood Pressure [Ri ght Upper Arm] Pulse Oximetry 97 98 91 Oxygen Delivery Me thod Oxygen Flow Rate 05/28/25 21:30 05/28/25 21:31 Temperature Pulse Rate 126 H 126 H Pulse Rate [Pulse Oximeter] Respiratory Rate 6 L 6 L Blood Pressure 130/82 Blood Pressure [Ri ght Upper Arm] Pulse Oximetry 91 93 Oxygen Delivery Me thod Oxygen Flow Rate Course Course ED Course: Initial EKG shows sinus tach and nonspecific T-wave flattening but no clear ST segment elevation. Initial i-STAT troponin is undetectable. However with history of coronary disease presenting his NSTEMI will clearly need further workup with serial troponins. He is hypoxic, tremulous and shaking appears to be having rigors. Reevaluation(s) Reevaluation #1: 1855 leukocytosis, tachycardia, even without finger meet criteria for SIRS and possible sepsis with his rigors. Lactic is 3.7. Pressure is normal. I have already ordered a L of saline and a L of LR. I added at 500 mL bolus of LR to complete a 30 mL/kilos fluid bolus. Also antibiotics-Zosyn, vanc, Azithromycin. Repeat lactic after fluids. Repeat troponin too Reevaluation #2: Recheck-I reviewed his CT imaging myself and I do not see any obvious central PE or any large infiltrate on his lung views. I do not see any obvious obstruction, perforation, free air on his abdomen/pelvis CT. Still awaiting Radiology read which is unfortunately delayed. Recheck the patient. Heart rate down to about 110-112, sinus tach on the monitor. Repeat lung exam reveals diminished aeration but no clear focal infiltrate and no wheezing. With diminished aeration and potential that he might have been having allergic reaction afternoon will try an albuterol neb. At this point would hold off on epinephrine without any clear allergic reaction and already current sinus tachycardia, borderline hypertension (150/90 right now) and history of coronary disease. COVID/influenza/RSV PCR negative. LFTs are normal. Potassium 3.5, sodium 134. Repeat abdominal exam benign and still nontender. Nausea and vomiting improved after Zofran 4 mg IV already given. Reevaluation #3: Recheck-1956. CT abdomen pelvis is back IMPRESSION: 1. Mild mucosal hyperenhancement of the bladder which is nonspecific and may be seen in the setting of cystitis of infectious or inflammatory etiology. Correlate with urinalysis and culture. 2. A few colonic diverticuli without diverticulitis. Will add on urinalysis. Recheck -[address] came back and looks normal. IMPRESSION: 1. No pulmonary emboli pulmonary. No acute findings. Recheck- 30. Did partially respond to the neb. Feeling a little bit better with his breathing. and sats came up and now off oxygen. As I am in the room sats ranged between 89% and 96% on room air. May need to go back on oxygen. Repeat lung exam definitely shows better aeration but still no wheezing. Will try another neb. Heart rate still in the 120s. Blood pressure 130/70. Mental status is better. Rigors are gone. Skin is pink, warm, well perfused. Previous whiteness (thought to be due to his chronic Raynaud's) of his fingers and toes is resolved. Recheck- 50. Urinalysis is normal. Although abdomen CT it suggested possible cystitis, UA is negative. No clear source for sepsis. Nonetheless with leukocytosis, tachycardia, is receiving broad-spectrum antibiotics. Blood cultures are pending. He does not have headache, stiff neck is, altered mental status or other symptom at meningitis. There is no cutaneous manifestations to suggest a cellulitis, cutaneous abscess. No evidence for any septic arthritis or joint pain. Differential would also include potential allergic reaction. He did feel like his hands were initially itchy and swollen but he did not have other cutaneous a manifestations such as hives at any point. He is not having any airway swelling or airway compromise. He was hypoxic but not wheezing (responded to nebs). This could potentially be a bronchospasm related to an allergic reaction. Given his history of coronary disease, would hold off on epinephrine at this point given the risk of triggering severe tachycardia and hypertension.. Repeat lactic acid and troponin which I ordered for 8:00 p.m. are now being drawn. Additional Reevaluation(s): Recheck-09/05/2002. Lactic acid is back and is trending down from 3.7 down to 2.4. Repeat troponin has gone from undetectable to 0.04 which is the upper limit of normal for our lab. Will add on aspirin 324 mg p.o.. Recheck-repeated entire clinical exam. Constitutional: Appears well-developed and well-nourished. Alert. Conversant. Non toxic. Patient says he is feeling better and wants to go home but still has persistent tachycardia, oxygen sats about 90% on room air. Blood pressure normal. Respirations unlabored. Feels warm to the touch. Recheck temperature is 101.3 HENT: Head: Atraumatic. Nose: Nose normal. TMs normal bilaterally save for a small amount of fluid behind the right TM but no erythema or bulging. Mastoids normal.. Mouth/Throat: Oral mucosa is clear and moist. no trismus. Pharynx normal. Tonsils symmetric. No tonsillar enlargement, erythema, or exudate. Eyes: Conjunctivae normal. EOM normal. Pupils equal, round, and reactive to ligh t. No scleral icterus. Neck: Normal range of motion. Neck supple. No tracheal deviation present. No stiffness or meningismus. Normal mental status. Cardiovascular: Tachycardic, 120s with sinus tach on the monitor, regular rhythm. No gallop. No friction rub. No murmur heard. Symmetric radial and DP artery pulses . Although he had a white discoloration of his finger tips and toes when he presented that is normal in all 4 extremities are now pink, warm, well perfused with brisk cap refill. Pulmonary/Chest: Effort normal. No stridor. No respiratory distress, however his oxygen sats are borderline low at about 90-91% on room air. No wheezes. No rales. No rhonchi . No tenderness. Abdominal: Soft. Bowel sounds normal. No distension. No mass. No tenderness. No rebound. No guarding. No umbilical or inguinal hernias. : Externally normal. No rash. Musculoskeletal: RUE: Normal range of motion. No tenderness. No deformity LUE: Normal range of motion. No tenderness. No deformity RLE: Normal range of motion. No edema. No tenderness. No deformity LLE: Normal range of motion. No edema. No tenderness. No deformity Lymph: No cervical adenopathy. Neurological: Alert and oriented to person, place, and time. Normal strength. CN II-VII intact. No sensory deficit. GCS eye subscore is 4. GCS verbal subscore is 5. GCS motor subscore is 6. Normal coordination Skin: Skin is warm and dry. No rash noted. No pallor. Normal capillary refill. Psychiatric: Initially had been somewhat anxious but is much calmer now. Normal mood. Normal affect. Polite. Vital Signs Vital signs: Initial Vital Signs Temperature 97.8 F 05/28/25 17:53 Temperature Source Oral 05/28/25 17:53 Pulse Rate 112 H 05/28/25 17:53 Respiratory Rate 22 05/28/25 17:53 Blood Pressure 161/135 H 05/28/25 17:53 Blood Pressure Mean 143 H 05/28/25 17:53 Pulse Oximetry 86 L 05/28/25 17:53 Oxygen Delivery Method Room Air 05/28/25 17:53 Vital Signs Temperature 97.8 F 05/28/25 17:53 Pulse Rate 112 H 05/28/25 17:53 Respiratory Rate 22 05/28/25 17:53 Blood Pressure 161/135 H 05/28/25 17:53 Pulse Oximetry 86 L 05/28/25 17:53 Oxygen Delivery Method Room Air 05/28/25 17:53 Temperature 101.3 F H 05/28/25 20:32 Pulse Rate 126 H 05/28/25 21:31 Respiratory Rate 6 L 05/28/25 21:31 Blood Pressure 130/82 05/28/25 21:31 Pulse Oximetry 93 05/28/25 21:31 Oxygen Delivery Method Room Air 05/28/25 20:31 Oxygen Flow Rate 3 05/28/25 20:15 Medications Administered Medications: Generic Name Dose Route Start Last Admin Trade Name Freq PRN Reason Stop Dose Admin IV Miscellaneous Supplies 1 each 05/28/25 19:00 05/28/25 22:13 Pharmacist Consult 1 each Q24H BRYSON Administration Protocol Discontinued Medications Generic Name Dose Route Start Last Admin Trade Name Freq PRN Reason Stop Dose Admin Acetaminophen 1,000 mg 05/28/25 21:47 05/28/25 22:17 Acetaminophen 500 Mg Tablet PO 05/28/25 21:48 1,000 mg ONCE ONE Administration Albuterol/Ipratropium 1 neb 05/28/25 19:13 05/28/25 19:33 Iprat-Albut 0.5-2.5 Mg/3 Ml Formerly [facility] 05/28/25 19:14 1 neb ONCE ONE Administration Albuterol/Ipratropium 1 neb 05/28/25 20:50 05/28/25 21:13 Iprat-Albut 0.5-2.5 Mg/3 Ml Formerly [facility] 05/28/25 20:51 1 neb ONCE ONE Administration Aspirin 324 mg 05/28/25 18:08 05/28/25 18:46 Aspirin 81 Mg Tab.Chew PO 05/28/25 18:09 324 mg ONCE ONE Administration Aspirin 324 mg 05/28/25 21:09 05/28/25 21:57 Aspirin 81 Mg Tab.Chew PO 05/28/25 21:10 Not Given ONCE ONE Diphenhydramine HCl 12.5 mg 05/28/25 21:09 05/28/25 21:45 Diphenhydramine 50 Mg/Ml Inj IVP 05/28/25 21:10 12.5 mg ONCE ONE Administration Sodium Chloride 1,000 mls @ 1,000 mls/hr 05/28/25 18:15 05/28/25 19:14 0.9 % Sodium Chloride 1000 Ml IV 05/28/25 19:14 Infused .Q1H BRYSON Infusion Lactated Ringer's 1,000 mls @ 1,000 mls/hr 05/28/25 18:20 05/28/25 20:32 Lactated Ringers 1000 Ml IV 05/28/25 19:19 Infused .Q1H ONE Infusion Piperacillin Sod/Tazobactam 100 mls @ 200 mls/hr 05/28/25 18:57 05/28/25 21:37 Sod 4.5 gm/ Sodium Chloride IVPB 05/28/25 18:58 Infused ONCE ONE Infusion Azithromycin 500 mg/ Sodium 255 mls @ 255 mls/hr 05/28/25 18:56 05/28/25 20:45 Chloride IVPB 05/28/25 18:57 Infused ONCE ONE Infusion Lactated Ringer's 500 mls @ 500 mls/hr 05/28/25 18:58 05/28/25 21:54 Lactated Ringers 500 Ml IV 05/28/25 19:57 500 mls/hr .Q1H ONE Administration Doxycycline Hyclate 200 mg/ 100 mls @ 100 mls/hr 05/28/25 21:19 05/28/25 22:18 Sodium Chloride IVPB 05/28/25 21:20 100 mls/hr ONCE ONE Administration Methylprednisolone Sodium Succinate 125 mg 05/28/25 21:09 05/28/25 21:49 Methylprednisolone Sod Succ 62.5 Mg/Ml (125) IVP 05/28/25 21:10 125 mg ONCE ONE Administration Ondansetron HCl 4 mg 05/28/25 18:08 05/28/25 18:14 Ondansetron 2 Mg/Ml Inj IVP 05/28/25 18:09 4 mg ONCE ONE Administration Medical Decision Making MDM Narrative Medical decision making narrative: 55-year-old gentleman with a past history coronary disease and previous stents after and STEMI 3 years ago, Raynaud's disease (triggered after he had COVID 3 years ago), anxiety and panic, GERD, with a complex presentation to the ER. 1. Cardiac. He did have shortness of breath and chest pain this afternoon. Differential was broad. No evidence of palpitations, syncope or other cardiac dysrhythmia. He does have a persistent sinus tachycardia on his EKG. Heart rate ranges from a low about 110-112 and a max of about 130. He clearly has P and T-waves before and after each QRS. At this point I do not think he is having a flutter, SVT , AFib. He does have history of coronary disease and has 3 stents and is still on baby aspirin. Initial EKG shows nonspecific T-wave flattening but no clear ST segment elevation or depression. Initial troponin is undetectable at 0.00. 2 hour delta troponin is rising to 0.04 which is the upper limit of normal for our point of care troponin test. Third troponin is 0.05. Given the totality of his symptoms with diarrhea this morning, vomiting and skin itchiness afternoon, chills and rigors, I suspect this is probably demand ischemia from the other underlying medical condition rather than true ACS. Has already received aspirin. Would hold off on heparin for now. EKG shows no evidence for pericarditis. He does not have any signs of pulmonary edema or heart failure on his chest CT to raise concern for low EF for myocarditis. Chest CT shows no evidence for pulmonary embolism, pneumonia, pneumothorax, pulmonary edema, pleural effusion, rib fracture, cardiomegaly. Mediastinum is normal on the CT. The patient has no ripping or tearing pain through to the back and has symmetric pulses on exam, no other acute neuro findings so I doubt aortic dissection. Risk of radiation and contrast exposure would outweigh the benefit of CT angiogram. 2. Allergy. Patient does recall that when he was in the shower this afternoon he started to feel itchiness in his hands and then developed a white rash on his hands (suggestive of probably Raynaud's flare). No other hives, airway swelling, or any other clear objective findings to suggest allergic reaction. He has no hypotension but is tachycardic. On his lung exam is he did have to diminished aeration and some slight improvement after DuoNeb which could suggest bronchospasm contributing to his symptoms. This leads to consideration for possible allergy. He did have some vomiting and diarrhea which could have been potential GI involvement. However no other clear evidence for anaphylaxis or allergic reaction. Will treat with albuterol/ipratropium nebulizers, IV Solu- Medrol, IV Benadryl. At this point would hold off on epinephrine given his history of coronary disease in his current tachycardia. 3. GI. Did have a little bit of watery diarrhea this morning and some vomiting this afternoon (no blood or melena in his stool and no bloody emesis). No evidence for any active bleeding. Hemoglobin is 15.9. CT scan of his abdomen pelvis shows no evidence for obstruction, colitis, diverticulitis, perforation, abscess, appendicitis, cholecystitis or other clear cause for his symptoms. Vomiting resolved after Zofran given here in the ER. 4. Infectious disease. Patient did not have a measured fever at triage but did have chills and shaking rigors concerning for infection. Although his initial not febrile, while he was here in the ER he did spike a temperature up to 101.3 (after several hours of treatment time in the ER). Broad differential is considered. Blood cultures are pending. COVID/influenza/RSV PCR is negative. Urinalysis is negative for infection although abdomen CT suggest the possibility of urinary bladder wall thickening. He has no cutaneous findings on his skin to suggest a cellulitis or cutaneous abscess. No evidence for any septic arthritis. CT negative for intra-abdominal infection. Chest CT negative for any of lung infiltrate or pneumonia. He is not coughing. He does not have a headache, confusion, neck stiffness and has no clinical exam findings to suggest meningitis or encephalitis. At this point the risk and discomfort of lumbar puncture we clearly outweigh any potential benefit. No murmur on my cardiac exam to suggest new onset endocarditis (also no splinter hemorrhages or other stigmata of endocarditis). No history of IV drug use. The patient and his deny any outdoor exposure or camping or ticks this summer. Will add on a tick panel to his labs. His tachycardia and leukocytosis did trigger SIRS criteria. Blood cultures, 30 mL/kilos fluid bolus, broad-spectrum antibiotics were ordered early in his course. After discussion with our hospitalist we added on doxycycline for potential tick-borne illness. 5. Respiratory. Patient did complain of chest heaviness and shortness of breath prior to presentation. Oxygen sats were hypoxic upon presentation. Lung sounds generally clear. Chest CT negative for PE, pneumonia, pulmonary edema, pneumothorax, or other clear cause for his hypoxia. Although lungs were not wheezy we did try an empiric DuoNeb with some partial improvement. This could suggest some degree of bronchospasm contributing. Has a history of asthma but generally well controlled. Also IV steroids. I do note on his vital sign trend that he has several respiratory rates of 0 and 6 but these are inaccurate charting, I think due to computer error. Initial respiratory rate was tachypneic but respiratory rate is now improved and about 18-21. Respirations are on unlabored. 6. Endocrine. Has a history of borderline diabetes. Blood sugar today is 201. However no evidence for DKA or HHS at this time. Suspect the hyperglycemia is probably reactive to his underlying illness. Lab Data Labs: Lab Results 05/28/25 05/28/25 05/28/25 Range/Units 17:45 18:09 18:10 WBC 18.33 H (4.50-11.00) K/uL RBC 5.02 (4.30-5.90) m/uL Hgb 15.9 (13.5-17.5) gm/dL Hct 45.0 (37.0-53.0) % MCV 90 (80-100) fL MCH 32 (26-34) pg MCHC 35 (32-36) gm/dL RDW Coeff of Christopher 12.0 (11.5-15.5) % Plt Count 227 (140-440) K/uL Neut % (Auto) 87.4 H (42.0-72.0) % Lymph % (Auto) 9.2 L (20-44) % Hitchcock % (Auto) 2.7 (0.0-11.0) % Eos % (Auto) 0.4 (0.0-7.0) % Baso % (Auto) 0.0 (0.0-3.0) % Neut # (Auto) 16.00 H (1.7-7.0) K/uL Lymph # (Auto) 1.70 (0.90-2.90) K/uL Hitchcock # (Auto) 0.50 (0.00-0.90) K/UL Eos # (Auto) 0.10 (0.00-0.50) K/uL Baso # (Auto) 0.00 (0.00-0.30) K/uL Abs Immat Gran (auto) 0.10 (0.00-0.30) K/uL Imm/Tot Granulo (auto) 0.3 % Sodium 134 L (135-149) mmol/L Potassium 3.5 L (3.6-5.1) mmol/L Chloride 100 (96-114) mmol/L Carbon Dioxide 22 (20-32) mmol/L Anion Gap 12 (7-15) mEq/L BUN 12 (7-30) mg/dL Creatinine 1.1 (0.5-1.5) mg/dL Estimated GFR 79 ml/min Glucose 201 H (60-115) mg/dL Lactate 3.7 H (0.5-1.9) mmol/L Calcium 10.1 (8.4-10.6) mg/dL Total Bilirubin 0.5 (0.1-1.5) mg/dL AST 32 (12-35) U/L ALT 27 (4-50) U/L Alkaline Phosphatase 57 (40-150) U/L C-Reactive Protein < 0.5 L (0.5-1.0) mg/dL Total Protein 7.8 (6.0-8.3) g/dL Albumin 4.8 (3.3-5.0) g/dL Procalcitonin 0.07 (<0.50) ng/mL Urine Color (Yellow) Urine Appearance (Clear) Urine pH (5.0-8.5) Ur Specific Beaver (1.000-1.030) Urine Protein (Negative) Urine Glucose (UA) (Negative) Urine Ketones (Negative) Urine Blood (Negative) Urine Nitrite (Negative) Urine Bilirubin (Negative) Urine Urobilinogen (0.2-1.0) Ur Leukocyte Esterase (Negative) Urine RBC (0-2) Urine WBC (0-5) Ur Squamous Epith Cells (None-Few) Urine Bacteria (None) SARS-CoV-2 (PCR) Negative SARS-CoV-2 (Negative) Influenza Type A (PCR) Negative PCR FLU A (Negative) Influenza Type B (PCR) Negative PCR FLU B (Negative) RSV (PCR) Negative PCR RSV (Negative) Lab Acknowledgement POC Creatinine 1.2 (0.6-1.3) mg/dl POC Troponin I 0.00 L (0.01-0.04) ng/ml 05/28/25 05/28/25 05/28/25 Range/Units 19:57 20:00 20:44 WBC (4.50-11.00) K/uL RBC (4.30-5.90) m/uL Hgb (13.5-17.5) gm/dL Hct (37.0-53.0) % MCV (80-100) fL MCH (26-34) pg MCHC (32-36) gm/dL RDW Coeff of Christopher (11.5-15.5) % Plt Count (140-440) K/uL Neut % (Auto) (42.0-72.0) % Lymph % (Auto) (20-44) % Hitchcock % (Auto) (0.0-11.0) % Eos % (Auto) (0.0-7.0) % Baso % (Auto) (0.0-3.0) % Neut # (Auto) (1.7-7.0) K/uL Lymph # (Auto) (0.90-2.90) K/uL Hitchcock # (Auto) (0.00-0.90) K/UL Eos # (Auto) (0.00-0.50) K/uL Baso # (Auto) (0.00-0.30) K/uL Abs Immat Gran (auto) (0.00-0.30) K/uL Imm/Tot Granulo (auto) % Sodium (135-149) mmol/L Potassium (3.6-5.1) mmol/L Chloride (96-114) mmol/L Carbon Dioxide (20-32) mmol/L Anion Gap (7-15) mEq/L BUN (7-30) mg/dL Creatinine (0.5-1.5) mg/dL Estimated GFR ml/min Glucose (60-115) mg/dL Lactate 2.8 H (0.5-1.9) mmol/L Calcium (8.4-10.6) mg/dL Total Bilirubin (0.1-1.5) mg/dL AST (12-35) U/L ALT (4-50) U/L Alkaline Phosphatase (40-150) U/L C-Reactive Protein (0.5-1.0) mg/dL Total Protein (6.0-8.3) g/dL Albumin (3.3-5.0) g/dL Procalcitonin (<0.50) ng/mL Urine Color Yellow (Yellow) Urine Appearance Clear (Clear) Urine pH 6.5 (5.0-8.5) Ur Specific Beaver 1.010 (1.000-1.030) Urine Protein Negative (Negative) Urine Glucose (UA) Negative (Negative) Urine Ketones 1+ A (Negative) Urine Blood Negative (Negative) Urine Nitrite Negative (Negative) Urine Bilirubin Negative (Negative) Urine Urobilinogen 0.2 (0.2-1.0) Ur Leukocyte Esterase Negative (Negative) Urine RBC 0-2 (0-2) Urine WBC 0-2 (0-5) Ur Squamous Epith Cells None (None-Few) Urine Bacteria None (None) SARS-CoV-2 (PCR) (Negative) Influenza Type A (PCR) (Negative) Influenza Type B (PCR) (Negative) RSV (PCR) (Negative) Lab Acknowledgement POC Creatinine (0.6-1.3) mg/dl POC Troponin I 0.04 (0.01-0.04) ng/ml 05/28/25 Range/Units 21:20 WBC (4.50-11.00) K/uL RBC (4.30-5.90) m/uL Hgb (13.5-17.5) gm/dL Hct (37.0-53.0) % MCV (80-100) fL MCH (26-34) pg MCHC (32-36) gm/dL RDW Coeff of Christopher (11.5-15.5) % Plt Count (140-440) K/uL Neut % (Auto) (42.0-72.0) % Lymph % (Auto) (20-44) % Hitchcock % (Auto) (0.0-11.0) % Eos % (Auto) (0.0-7.0) % Baso % (Auto) (0.0-3.0) % Neut # (Auto) (1.7-7.0) K/uL Lymph # (Auto) (0.90-2.90) K/uL Hitchcock # (Auto) (0.00-0.90) K/UL Eos # (Auto) (0.00-0.50) K/uL Baso # (Auto) (0.00-0.30) K/uL Abs Immat Gran (auto) (0.00-0.30) K/uL Imm/Tot Granulo (auto) % Sodium (135-149) mmol/L Potassium (3.6-5.1) mmol/L Chloride (96-114) mmol/L Carbon Dioxide (20-32) mmol/L Anion Gap (7-15) mEq/L BUN (7-30) mg/dL Creatinine (0.5-1.5) mg/dL Estimated GFR ml/min Glucose (60-115) mg/dL Lactate (0.5-1.9) mmol/L Calcium (8.4-10.6) mg/dL Total Bilirubin (0.1-1.5) mg/dL AST (12-35) U/L ALT (4-50) U/L Alkaline Phosphatase (40-150) U/L C-Reactive Protein (0.5-1.0) mg/dL Total Protein (6.0-8.3) g/dL Albumin (3.3-5.0) g/dL Procalcitonin (<0.50) ng/mL Urine Color (Yellow) Urine Appearance (Clear) Urine pH (5.0-8.5) Ur Specific Beaver (1.000-1.030) Urine Protein (Negative) Urine Glucose (UA) (Negative) Urine Ketones (Negative) Urine Blood (Negative) Urine Nitrite (Negative) Urine Bilirubin (Negative) Urine Urobilinogen (0.2-1.0) Ur Leukocyte Esterase (Negative) Urine RBC (0-2) Urine WBC (0-5) Ur Squamous Epith Cells (None-Few) Urine Bacteria (None) SARS-CoV-2 (PCR) (Negative) Influenza Type A (PCR) (Negative) Influenza Type B (PCR) (Negative) RSV (PCR) (Negative) Lab Acknowledgement Test Added POC Creatinine (0.6-1.3) mg/dl POC Troponin I (0.01-0.04) ng/ml ECG Data Attestation: I personally reviewed and interpreted this ECG as follows: Interpretation: Sinus tachycardia Rate 119 AZ interval 134 Normal QRS axis No ST segment elevation or depression. Nonspecific T-wave flattening in leads V1, V2, 1, aVL QT 318, QTC 447 T-wave flattening is new in lead V2, 1, aVL compared to 04/05/2025 Critical Care Time Critical Care Time Critical Care Time: Yes Attestation: The patient required my highest level preparedness to intervene emergently and I personally spent this critical care time directly and personally managing the patient. This critical care time included: Obtaining a history; Examining the patient; Pulse oximetry; Ordering and reviewing of studies; Arranging urgent treatment with development of a management plan; Evaluation of patients response to treatment; Frequent reassessment discussions with other providers. This critical care time was performed to assess and manage the high probability of imminent life-threatening deterioration that could result in multiorgan failure. It was exclusive of separate billable procedures and treating other patients and teaching time. Total Critical Care Time in Minutes: 60 Discharge Plan Discharge Prescriptions: No Action albuterol 90 mcg/actuation aerosol 2 spray inhalation Q4H PRN nifedipine 60 mg tablet extended release 60 mg PO QDAY Qty: 90 3RF zolpidem [Ambien] 5 mg tablet 5 mg PO QHS PRN (Reason: insomnia) Qty: 30 0RF Rx Instructions: may repeat once if no response in 30-60 minutes lorazepam 0.5 mg tablet 0.5 mg PO BID PRN (Reason: agitation) Qty: 60 0RF rosuvastatin 20 mg tablet 20 mg PO QPM Qty: 90 3RF Follow Up/Referrals: Kahlil Rouse MD [Primary Care Provider, Internal Medicine]
--- NOTE | 2025-05-28 18:08 | CRLHL7_ITS ---
For Patients: As a result of the Century Cures Act, medical imaging exams and procedure reports are released immediately into your electronic medical record. You may view this report before your referring provider. If you have questions, please contact your health care provider. INDICATION: Chest pain tachycardia. TECHNIQUE: CT chest was acquired with 95 cc Isovue 370 IV contrast. Coronal and MIP reconstructions were performed. COMPARISON: None. FINDINGS: Lungs and pleura: Granulomas in the medial right lower lobe. Lungs are clear Heart and vasculature: Heart size is normal. Thoracic aorta and pulmonary artery are normal in caliber. No pulmonary emboli. Lymph nodes/mediastinum: No mediastinal, hilar, or axillary adenopathy. Calcified mediastinal and right hilar nodes. Chest wall: No masses. Upper abdomen: Splenic granulomas. Low-attenuation lesion in the spleen could represent a cyst or hemangioma. Liver granulomas. Small hiatal hernia. Bones: Unremarkable for age. IMPRESSION: 1. No pulmonary emboli pulmonary. No acute findings. Please note that all CT scans at this facility use dose modulation, iterative reconstruction, and/or weight-based dosing when appropriate to reduce radiation dose to as low as reasonably achievable. Dictated by Rebeca Stanton MD @ 05/28/2025 7:58:39 PM (Electronically Signed)
--- NOTE | 2025-05-28 18:08 | CRLHL7_ITS ---
For Patients: As a result of the 21st Century Cures Act, medical imaging exams and procedure reports are released immediately into your electronic medical record. You may view this report before your referring provider. If you have questions, please contact your health care provider. INDICATION: CHEST PAIN, TACHYCARDIA, HYPOXIA, ABD PAIN, DIZZINESS, VOMITING TECHNIQUE: CT abdomen and pelvis acquired with 95 cc Isovue 370 IV contrast. COMPARISON: CT abdomen and pelvis on June 15, 2019 FINDINGS: Lower chest: Please see same day CT chest. Liver: Non cirrhotic morphology. Punctate calcified granuloma in segment 6. No suspicious mass. Gallbladder and bile ducts: No stones or inflammation. No biliary dilatation. Pancreas: No ductal dilatation. No mass or inflammation. Spleen: Normal in size. Stable cyst or hemangioma measuring 0.9 cm (2). Multiple subcentimeter calcified granulomas compatible with prior granulomatous infection. Splenule. Adrenal glands: No nodules. Kidneys: Symmetric enhancement with no perinephric fat stranding. No suspicious masses, stones, or hydronephrosis. Stable right upper pole subcentimeter cortical hypodensity which is too small to characterize, statistically a cyst. GI tract: Stomach is decompressed, limiting evaluation, but appears grossly normal. Small and large bowel is normal in caliber without obstruction. Normal appendix (). A few scattered colonic diverticuli without diverticulitis. Vasculature: Abdominal aorta is normal in caliber. Mesenteric arteries are patent. Mild aortoiliac atherosclerotic disease. Patent hepatic, portal, splenic and bilateral renal veins. Duplicated IVC, a benign anatomic variant. Lymph nodes: No lymphadenopathy. Peritoneum/Abdominal Wall: Small bilateral fat containing inguinal hernias. No sign of mass or infiltration. No free air or significant free fluid. Pelvis: Mild mucosal hyperenhancement of the bladder. Bones: No acute fracture. No aggressive appearing lytic or blastic osseous lesion. [id number] multilevel degenerative changes of the spine. IMPRESSION: 1. Mild mucosal hyperenhancement of the bladder which is nonspecific and may be seen in the setting of cystitis of infectious or inflammatory etiology. Correlate with urinalysis and culture. 2. A few colonic diverticuli without diverticulitis. Please note that all CT scans at this facility use dose modulation, iterative reconstruction, and/or weight-based dosing when appropriate to reduce radiation dose to as low as reasonably achievable. Dictated by Patricia Cee MD @ 05/28/2025 7:55:16 PM (Electronically Signed)
[2025-05-28] MEDS: ONDANSETRON 2 MG/ML inj 4 MG IVP (18:14)
[2025-05-28 18:16] LABS: Lactate* 3.7 mmol/L (0.5-1.9)
[2025-05-28 18:18] LABS: Hematocrit* 45.0 % (37.0-53.0); Hemoglobin* 15.9 gm/dL (13.5-17.5); Immature Granulocytes Pct Auto 0.3 %; Mean Corpuscular HGB Conc 35 gm/dL (32-36); Mean Corpuscular Hemoglobin 32 pg (26-34); Mean Corpuscular Volume 90 fL (80-100); RDW Coefficient of Variation % 12.0 % (11.5-15.5); Red Blood Count* 5.02 m/uL (4.30-5.90); White Blood Count* 18.33 K/uL (4.50-11.00)
[2025-05-28 18:21] LABS: Immature Granulocytes Abs Auto 0.10 K/uL (0.00-0.30); Lymphocytes Absolute Auto 1.70 K/uL (0.90-2.90); Slide Review Reflex No
[2025-05-28 18:28] LABS: Albumin* 4.8 g/dL (3.3-5.0); Chloride* 100 mmol/L (96-114); Potassium* 3.5 mmol/L (3.6-5.1); Sodium* 134 mmol/L (135-149)
[2025-05-28 18:31] LABS: Alanine Aminotransferase* 27 U/L (4-50); Alkaline Phosphatase* 57 U/L (40-150); Anion Gap 12 mEq/L (7-15); Aspartate Amino Transferase* 32 U/L (12-35); Bilirubin Total* 0.5 mg/dL (0.1-1.5); Blood Urea Nitrogen* 12 mg/dL (7-30); Calcium* 10.1 mg/dL (8.4-10.6); Carbon Dioxide* 22 mmol/L (20-32); Creatinine* 1.1 mg/dL (0.5-1.5); Estimated Glomerular Filt Rate 79 ml/min; Glucose* 201 mg/dL (60-115); Total Protein* 7.8 g/dL (6.0-8.3)
[2025-05-28] MEDS: ASPIRIN 81 MG TAB.CHEW 324 MG PO (18:46)
[2025-05-28 18:57] LABS: Creatinine, Point-of-Care* 1.2 mg/dl (0.6-1.3); Troponin, Point-of-Care* 0.00 ng/ml (0.01-0.04)
[2025-05-28 18:57] LABS: PCR FLU A Negative PCR FLU A (Negative); PCR FLU B Negative PCR FLU B (Negative); PCR RSV Negative PCR RSV (Negative); SARS PCR* Negative SARS-CoV-2 (Negative)
[2025-05-28] MEDS: LACTATED RINGERS 1000 ML 1,000 ML IV (19:15)
[2025-05-28] MEDS: AZITHROMYCIN 500 MG in 0.9 % SODIUM CHLORIDE 250 ml 250 ML 255 MG IVPB (19:24)
[2025-05-28] MEDS: IPRAT-ALBUT 0.5-2.5 MG/3 ML NEB 1 NEB IH ×2 (19:33→21:13)
[2025-05-28 20:36] LABS: Appearance Urine Clear (Clear)
[2025-05-28] MEDS: PIPERACILLIN/TAZOBACTAM 4.5 GM in 0.9 % SODIUM CHLORIDE Mini-bag 100 ML IVPB (20:45)
[2025-05-28 20:54] LABS: Lactate* 2.8 mmol/L (0.5-1.9)
[2025-05-28 21:05] LABS: Troponin, Point-of-Care* 0.04 ng/ml (0.01-0.04)
--- NOTE | 2025-05-28 21:30 | PM.IMHP1 ---
Assessment and Plan Assessment and plan (1) Severe sepsis: Problem comment: -source unclear. Imaging unremarkable. febrile in the ER. Continues to be tachycardic. Qualifies for severe sepsis. Lactate elevated and bounced back high after initially responding to fluids. Getting broad-spectrum antibiotics (zosyn, vanc, doxy). I am covering him with doxycycline in case this is a tick-borne presentation. No evidence of meningitis or endocarditis. We do have blood cultures and urine cultures pending. I suspect he has either viremic and we will try to narrow that down, has a tick-borne illness, or is bacteremic. PCR for stool pathogens pending a loose stool. will also check for CDIFF if stool is loose. Status: Acute (2) Elevated lactic acid level: Problem comment: giving IV fluids and broad spectrum antibiotics. Status: Acute (3) Hyponatremia: Status: Acute (4) Hypokalemia: Status: Acute (5) Hypomagnesemia: Problem comment: replacing Status: Acute (6) CAD (coronary artery disease): Problem comment: -sinus tach. His EKG other than the tachycardia looks unchanged from previous. -his troponin is minimally trending up. This is on the POC bedside measurement. 0-0.05. confirmed by serum. This is likely demand related to the tachycardia and fever. has had aspirin, metoprolol and is pain free. 09/2022: Acute PR - sudden onset left arm pain with radiation to the chest. ICA: Critical lesion in the distal circumflex and diffuse critical lesion in the dRCA, both treated with LOIDA x 3 (3.0 x 28m, 2.0 x 30mm, 2.5 x 30mm). No residual high-grade lesions requiring additional interventions. Status: Acute (7) Type 2 diabetes mellitus: Problem comment: -diet controlled. Accu-Cheks. Status: Acute (8) History of panic attacks: Problem comment: -Dr. Rouse has prescribed p.r.n. Ativan Status: Acute (9) Raynauds disease: Problem comment: -nifedipine has been moderately effective Status: Acute (10) Hypertension: Status: Acute (11) Gastroesophageal reflux: Status: Acute (12) Elevated troponin I level: Status: Deleted (13) Demand ischemia: Problem comment: troponin went up to 0.09 several hours after presentation. no current chest pain, EKG shows no ischemia, likely from tachycardia, fever, underlying infection. has had a full aspirin and IV metoprolol. will continue to watch closely. Status: Acute Hospitalist- H&P: HPI History of Present Illness Date Seen: 05/28/25 Chief complaint: Potential Heart Attack Narrative: ADMISSION HISTORY AND PHYSICAL - HOSPITALIST Chief Complaint: SOB, tingling hands, diarrhea, chest pain HPI: 55 y/o with a hx of CAD (s/p acute PR, drug-eluting stents in 2022), raynauds and type 2 diabetes who presents after an acute episode of shortness of breath, chest pain, tingling in his hands and palpitations. This happened at about 1630 on the day of presentation and admission. He was in the shower. He had been having a relatively normal day. He said he felt chilled this morning and turned the heat up in the house. He also reports 4 loose, nonbloody stools. He had not thought much of it. In the shower, he felt suddenly ill. very weak, hands swelling/itching, chest pain, couldn't breathe. He called his , she came home and helped him into the car and he arrived to our ER. Apparently in triage, he was in the mid 80s on room air, tachycardic, shaking. Later in the ER visit a 101.3 fever would be documented. No dysuria, abdominal pain, headache, photophobia, rash, hives, or URI symptoms (cough, congestion, runny eyes or nosse). He sees Dr. Rouse in clinic. He has type 2 diabetes but this is diet controlled. He has coronary artery disease but is only on Crestor and aspirin. He does have insomnia and raynauds. He does have intermittent anxiety. ER COURSE: arrived looking septic except no hypotension. he was vomiting and experiencing rigors. tachy. rec'd fluids, labs, CTA, CT abd/pelvis, broad spectrum abx, IV steroids. Was much improved by arrival to the floor. CODE STATUS: FULL CODE PCP: Kahlil Rouse MD EMERGENCY CONTACT PLAN: Kay Chisholm Rel To Pat Cell I've updated the PFSH, medications and allergies in the Expanse tabs. INVESTIGATIONS: LABS/MICRO/ECG/IMAGING Afebrile Normotensive Tachycardic into the 120s to 130s, sinus Mild respiratory distress with some tachypnea and hypoxia initially. A DuoNeb seem to make make a big difference. He remains in the low 90s on room air. 82 kilos CBC reflects a significant leukocytosis of 18.33. This is 87% neutrophils Hemoglobin is 15.9. Platelets 227. Mild hyponatremia 134 Mild hypokalemia 3.5 BUN and creatinine are 12 and 1.1 Glucose 201 Initial lactate 3.7, 2.8 after fluid resuscitation Normal LFTs POC troponin 0.0, 0.04 Negative for respiratory swabs Urine is 1+ ketones otherwise no signs of infection CTA 1. No pulmonary emboli pulmonary. No acute findings. CT abdomen pelvis with contrast 1. Mild mucosal hyperenhancement of the bladder which is nonspecific and may be seen in the setting of cystitis of infectious or inflammatory etiology. Correlate with urinalysis and culture. 2. A few colonic diverticuli without diverticulitis. 2 blood cultures pending Urine culture needs to be ordered stress echo 03/17/24 Final Impressions: 1. Negative stress echo for ischemia. 2. Post stress, decreased left ventricular size, increased global systolic function with an estimated EF of 60 to 65%. 3. Maximum stress test with 86.1% of age predicted maximum heart rate achieved. 4. Good exercise duration and workload. 5. During stress exam the patient developed no significant symptoms. 6. The mitral valve is sclerotic, mild mitral regurgitation. 7. Echo contrast was administered to enhance visualization of all left ventricular segments. 8. See separate report for EKG interpretation. 9. There is no significant change from prior study 06/23/2019. REVIEW OF SYSTEMS: 12-point ROS completed with patient and negative unless otherwise stated in HPI or below. PHYSICAL EXAM: CONSTITUTIONAL: Conversive, good historian. A/O. Knows setting and context. Looks better than expected from ER documentation and workup. GENERAL: Well-developed in no respiratory distress. VITAL SIGNS: see record. HEENT: Sclerae are anicteric. No petechiae. CARDIAC: rhythm is regular. There is no S3 or rub. No harsh murmurs. Extremities show trace edema with symmetrical pulses. ABDOMEN: soft. no guarding. PULM: good air entry with no wheeze. NEURO: Speech is fluent. A brief neurologic exam is negative. SKIN: No rashes, petechiae, concerning changes PSYCHIATRIC: Euthymic. ADMIT TO MEDSURG: FLOOR CARE DVT: Lovenox GI: PO intake Time spent: Today I spent 75 minutes seeing the patient, discussing the patient with ER staff, reviewing Expanse and EPIC notes/diagnostics, discussing the care plan with our care time that includes social work, PT/OT, pharmacy, RT, penitentiary and documenting my impressions and plan in the medical record. MEDICAL NECESSITY FOR HOSPITALIZATION Anticipated midnights in the hospital: 2 Admitting diagnosis: SEVERE SEPSIS Risk of morbidity and mortality: high Acuity is characterized as high and reflected in: underlying heart disease; troponin bump, diabetes, no source for the sepsis, persistent tachycardia This patient will require hospital services as outlined in the assessment and plan in order to stabilize and be safely discharged to a lower level of care. Because of the risk and acuity as described above, this patient cannot be managed at a lower level of care. LENGTH OF STAY: 2 IP ? Anticipated LOS>2 midnights due to acuity of clinical presentation requiring inpatient level of care Medical Decision Making Medical Decision Making Has patient completed a Health Care Directive: No PFSH [facility] Medical History (Updated 05/29/25 @ 00:11 by Misa Pedraza MD) CAD (coronary artery disease) ?I25.10 - Atherosclerotic heart disease of augustine coronary artery without angina pectoris (ICD-10) Type 2 diabetes mellitus ?E11.9 - Type 2 diabetes mellitus without complications (ICD-10) History of panic attacks ?Z86.59 - Personal history of other mental and behavioral disorders (ICD-10) Hx of myocardial infarction ?I25.2 - Old myocardial infarction (ICD-10) Raynauds disease ?I73.00 - Raynaud's syndrome without gangrene (ICD-10) Myocardial infarction ?I21.9 - Acute myocardial infarction, unspecified (ICD-10) Hypertension ?I10 - Essential (primary) hypertension (ICD-10) Gout ?M10.9 - Gout, unspecified (ICD-10) Umbilical hernia ?K42.9 - Umbilical hernia without obstruction or gangrene (ICD-10) Anxiety ?F41.9 - Anxiety disorder, unspecified (ICD-10) Surgical History (Updated 05/28/25 @ 21:51 by Misa Pedraza MD) S/P umbilical hernia repair, follow-up exam ?Z09 - Encounter for follow-up examination after completed treatment for conditions other than malignant neoplasm (ICD-10) Status post coronary artery stent placement ?Z95.5 - Presence of coronary angioplasty implant and graft (ICD-10) Social History Narrative: Patient admits to drinking alcohol. He is in real estate sales. What is your current living situation?: I presently have a place to live Problems where you live: no known problems In the past 12 months, utilities in danger of being shut off: no In past 12 months, lack of transportation kept you from medical appts, meetings, work, or getting things needed for daily living: no In the past 12 mos, have been you worried that your food would run out before you had money to buy more?: never true In the past 12 mos, the food you bought just didn't last and you didn't have money to buy more?: never true Highest level of school completed/degree received: some college, no degree Smoking Status: Never smoker Second hand tobacco smoke exposure: No How often do you have a drink containing alcohol: 2-3 times a week Alcohol type: beer How many standard drinks containing alcohol do you have on a typical day: 3 or 4 How often do you have six or more drinks on one occasion: Less than monthly AUDIT-C Alcohol total score: 5 Non-prescribed substance use: marijuana (any form) Caffeine: Yes How often does anyone, including family, friends and others, physically hurt you: never How often does anyone, including family, friends and others, insult or talk down to you: never How often does anyone, including family, friends and others, threaten you with harm: never How often does anyone, including family, friends and others, scream or curse at you: never service: No Meds Home Medications and Allergies Home Medications ?Medication ?Instructions ?Recorded ?Confirmed ?Type albuterol 90 mcg/actuation aerosol 2 spray inhalation Q4H PRN 07/17/22 05/28/25 History inhaler nifedipine 60 mg tablet,extended 60 mg PO QDAY Raynaud's #90 tabs 02/16/25 05/28/25 Rx release lorazepam 0.5 mg tablet 0.5 mg PO BID PRN agitation #60 04/12/25 05/28/25 Rx tabs zolpidem 5 mg tablet (Ambien) 5 mg PO QHS PRN insomnia #30 tabs 04/12/25 05/28/25 Rx rosuvastatin 20 mg tablet 20 mg PO QPM #90 tabs 05/23/25 05/28/25 Rx Allergies Allergy/AdvReac Type Severity Reaction Status Date / Time Cat hair extract Allergy Intermediate Difficulty Uncoded 01/19/25 10:09 Breathing Exam Const: Vital Signs, click to edit/add: Vital Signs - 24 hr 05/28/25 17:53 05/28/25 17:58 05/28/25 18:00 Temperature 97.8 F Pulse Rate 113 H 112 H Pulse Rate [Pulse Oximeter] 112 H Respiratory Rate 22 11 L 17 Blood Pressure Blood Pressure [Ri ght Upper Arm] 161/135 H Pulse Oximetry 86 L 90 90 Oxygen Delivery Me thod Room Air Nasal Cannula Nasal Cannula Oxygen Flow Rate 2 2 05/28/25 18:01 05/28/25 18:01 05/28/25 18:15 Temperature Pulse Rate 116 H 123 H Pulse Rate [Pulse Oximeter] Respiratory Rate 19 37 H Blood Pressure 118/94 H Blood Pressure [Ri ght Upper Arm] Pulse Oximetry 91 92 90 Oxygen Delivery Me thod Nasal Cannula Nasal Cannula Nasal Cannula Oxygen Flow Rate 2 2 2 05/28/25 18:17 05/28/25 18:42 05/28/25 18:45 Temperature Pulse Rate 124 H 125 H Pulse Rate [Pulse Oximeter] Respiratory Rate 24 38 H Blood Pressure 172/125 H Blood Pressure [Ri ght Upper Arm] Pulse Oximetry 90 82 L 97 Oxygen Delivery Me thod Nasal Cannula Nasal Cannula OxyMask Oxygen Flow Rate 2 2 5 05/28/25 18:46 05/28/25 18:47 05/28/25 19:00 Temperature Pulse Rate 125 H 126 H 118 H Pulse Rate [Pulse Oximeter] Respiratory Rate 18 25 H 18 Blood Pressure 149/91 H Blood Pressure [Ri ght Upper Arm] Pulse Oximetry 98 92 95 Oxygen Delivery Me thod OxyMask OxyMask OxyMask Oxygen Flow Rate 5 5 5 05/28/25 19:04 05/28/25 19:15 05/28/25 19:16 Temperature Pulse Rate 121 H 119 H 118 H Pulse Rate [Pulse Oximeter] Respiratory Rate 19 20 15 Blood Pressure 151/95 H 151/89 H Blood Pressure [Ri ght Upper Arm] Pulse Oximetry 96 95 96 Oxygen Delivery Me thod OxyMask OxyMask OxyMask Oxygen Flow Rate 5 3 3 05/28/25 19:30 05/28/25 19:31 05/28/25 19:32 Temperature Pulse Rate 118 H 119 H 118 H Pulse Rate [Pulse Oximeter] Respiratory Rate 24 17 22 Blood Pressure 149/89 H Blood Pressure [Ri ght Upper Arm] Pulse Oximetry 96 98 95 Oxygen Delivery Me thod OxyMask OxyMask OxyMask Oxygen Flow Rate 3 3 3 05/28/25 19:45 05/28/25 19:46 05/28/25 20:00 Temperature Pulse Rate 122 H 118 H 122 H Pulse Rate [Pulse Oximeter] Respiratory Rate 15 23 22 Blood Pressure 132/80 Blood Pressure [Ri ght Upper Arm] Pulse Oximetry 100 97 94 Oxygen Delivery Me thod OxyMask OxyMask OxyMask Oxygen Flow Rate 3 3 3 05/28/25 20:01 05/28/25 20:15 05/28/25 20:30 Temperature Pulse Rate 125 H 128 H 127 H Pulse Rate [Pulse Oximeter] Respiratory Rate 15 30 H 28 H Blood Pressure 136/90 H Blood Pressure [Ri ght Upper Arm] Pulse Oximetry 95 93 92 Oxygen Delivery Me thod OxyMask OxyMask Room Air Oxygen Flow Rate 3 3 05/28/25 20:31 Temperature Pulse Rate 128 H Pulse Rate [Pulse Oximeter] Respiratory Rate 21 Blood Pressure 128/85 Blood Pressure [Ri ght Upper Arm] Pulse Oximetry 92 Oxygen Delivery Me thod Room Air Oxygen Flow Rate Hospitalist - H&P: Result Labs Labs: Short CBC 05/28/25 Range/Units 17:45 WBC 18.33 H (4.50-11.00) K/uL Hgb 15.9 (13.5-17.5) gm/dL Hct 45.0 (37.0-53.0) % Plt Count 227 (140-440) K/uL BMP 05/28/25 17:45 Sodium 134 L Potassium 3.5 L Chloride 100 Carbon Dioxide 22 BUN 12 Creatinine 1.1 Glucose 201 H Calcium 10.1 Liver Function 05/28/25 Range/Units 17:45 Total Bilirubin 0.5 (0.1-1.5) mg/dL AST 32 (12-35) U/L ALT 27 (4-50) U/L Alkaline Phosphatase 57 (40-150) U/L Albumin 4.8 (3.3-5.0) g/dL Urine 05/28/25 Range/Units 19:57 Urine Color Yellow (Yellow) Urine Appearance Clear (Clear) Urine pH 6.5 (5.0-8.5) Ur Specific [place] 1.010 (1.000-1.030) Urine Protein Negative (Negative) Urine Glucose (UA) Negative (Negative)
[2025-05-28] MEDS: METHYLPREDNISOLONE SOD SUCC 62.5 MG/ML (125) 125 MG IVP (21:49)
[2025-05-28 21:53] LABS: Procalcitonin* 0.07 ng/mL (<0.50)
[2025-05-28] MEDS: LACTATED RINGERS 500 ML 500 ML IV (21:54)
[2025-05-28] MEDS: ACETAMINOPHEN 500 MG TABLET 1000 MG PO (22:17)
[2025-05-28] MEDS: DOXYCYCLINE HYCLATE 200 MG in 0.9 % SODIUM CHLORIDE Mini-bag 100 ML 100 MG IVPB (22:18)
[2025-05-28 22:46] LABS: Troponin, Point-of-Care* 0.05 ng/ml (0.01-0.04)
[2025-05-28 23:31] LABS: Lactate* 3.2 mmol/L (0.5-1.9)
[2025-05-28] MEDS: VANCOMYCIN 1.5 GM/300 ML 1.5 GM/300 ML PIGGYBACK IVPB (23:42)
[2025-05-28 23:56] LABS: HCO3 VBG 24 mmol/L (21-28); PCO2 VBG 33 mmHG (40-50); PO2 VBG 46.0 mmHG (25-47); pH VBG 7.468 (7.32-7.43)
[2025-05-29] VITALS (8 sets, daily range): BP systolic 111–137; BP diastolic 64–85; PULSE 101–136; RESP 18–22; TEMP 36.4–37.1; O2SAT 96–98
[2025-05-29] MEDS: METOPROLOL TARTRATE 1 MG/ML inj 5 MG IVP (00:25)
[2025-05-29] MEDS: ROSUVASTATIN CALCIUM 10 MG TABLET 20 MG PO ×2 (00:38→17:46)
[2025-05-29] MEDS: MAGNESIUM IV 2 GM/50 ML PIGGYBACK IVPB (01:30)
[2025-05-29] MEDS: LACTATED RINGERS 1000 ML 1,000 ML 250 ML IV ×2 (02:04→06:28)
[2025-05-29 02:07] LABS: HCO3 VBG 22 mmol/L (21-28); Lactate* 3.3 mmol/L (0.5-1.9); PCO2 VBG 33 mmHG (40-50); PO2 VBG 66.6 mmHG (25-47); pH VBG 7.421 (7.32-7.43)
[2025-05-29] MEDS: PIPERACILLIN/TAZOBACTAM 3.375 GM in 0.9 % SODIUM CHLORIDE Mini-bag 100 ML IVPB ×4 (02:37→21:23)
[2025-05-29 06:20] LABS: HCO3 VBG 22 mmol/L (21-28); PCO2 VBG 32 mmHG (40-50); PO2 VBG 57.8 mmHG (25-47); pH VBG 7.447 (7.32-7.43)
[2025-05-29 06:23] LABS: Hematocrit* 35.5 % (37.0-53.0); Hemoglobin* 12.5 gm/dL (13.5-17.5); Immature Granulocytes Abs Auto 0.01 K/uL (0.00-0.30); Immature Granulocytes Pct Auto 0.1 %; Mean Corpuscular HGB Conc 35 gm/dL (32-36); Mean Corpuscular Hemoglobin 32 pg (26-34); Mean Corpuscular Volume 90 fL (80-100); RDW Coefficient of Variation % 12.1 % (11.5-15.5); Red Blood Count* 3.96 m/uL (4.30-5.90); White Blood Count* 8.03 K/uL (4.50-11.00)
[2025-05-29 06:26] LABS: Lymphocytes Absolute Auto 0.40 K/uL (0.90-2.90); Slide Review Reflex No
[2025-05-29 06:36] LABS: Albumin* 3.9 g/dL (3.3-5.0); Chloride* 103 mmol/L (96-114); Sodium* 132 mmol/L (135-149)
[2025-05-29 06:37] LABS: Potassium* 3.6 mmol/L (3.6-5.1)
[2025-05-29 06:39] LABS: Alanine Aminotransferase* 22 U/L (4-50); Aspartate Amino Transferase* 27 U/L (12-35); Blood Urea Nitrogen* 12 mg/dL (7-30); Creatinine* 0.7 mg/dL (0.5-1.5); Est. Creatinine Clearance* 107.60; Estimated Glomerular Filt Rate 109 ml/min
[2025-05-29 06:40] LABS: Alkaline Phosphatase* 38 U/L (40-150); Anion Gap 7 mEq/L (7-15); Bilirubin Total* 0.6 mg/dL (0.1-1.5); Calcium* 9.0 mg/dL (8.4-10.6); Carbon Dioxide* 22 mmol/L (20-32); Glucose* 261 mg/dL (60-115); Total Protein* 6.5 g/dL (6.0-8.3)
[2025-05-29 07:44] LABS: Lactate* 2.0 mmol/L (0.5-1.9)
[2025-05-29] MEDS: LACTATED RINGERS 1000 ML 1,000 ML 125 ML IV ×2 (07:56→11:15)
[2025-05-29 08:02] LABS: Ethanol* < 0.01 % (0.01-0.03)
--- NOTE | 2025-05-29 09:09 | PM.IMPN1 ---
Assessment and Plan Assessment and plan (1) Severe sepsis: Problem comment: -source unclear. Imaging unremarkable. febrile in the ER. Continues to be tachycardic. Qualifies for severe sepsis. Lactate elevated and bounced back high after initially responding to fluids. Getting broad-spectrum antibiotics (zosyn, vanc, doxy). I am covering him with doxycycline in case this is a tick-borne presentation. No evidence of meningitis or endocarditis. We do have blood cultures and urine cultures pending. I suspect he has either viremic and we will try to narrow that down, has a tick-borne illness, or is bacteremic. PCR for stool pathogens pending a loose stool. will also check for CDIFF if stool is loose. 05/29 agree with above last fever 12 hours ago BC x2, UC, viral panels pending Continue IV vancomycin, Zosyn, oral doxycycline Encouraged patient to stay until further results available, fever free 24 hours, clinical improvement Status: Acute (2) Elevated lactic acid level: Problem comment: -received 6 L IV fluids, maintenance 250ml LR, and broad spectrum antibiotics -improved to 2.0, decrease IVF to 125 mL per HR Status: Acute (3) Hyponatremia: Problem comment: -sodium 132, monitor Status: Acute (4) Hypokalemia: Problem comment: -potassium improved to 3.6, monitor Status: Acute (5) Hypomagnesemia: Problem comment: -1.4 on admission, currently 1.6 following replacement Status: Acute (6) Elevated troponin I level: Problem comment: 0.09->0.11->0.09, suspect demand ischemia, EKG with tachycardia otherwise similar to previous no c/o chest pain tachycardia improving Status: Acute (7) Demand ischemia: Problem comment: troponin went up to 0.09 several hours after presentation. no current chest pain, EKG shows no ischemia, likely from tachycardia, fever, underlying infection. has had a full aspirin and IV metoprolol. will continue to watch closely. Status: Acute (8) CAD (coronary artery disease): Problem comment: 09/2022: Acute PA - sudden onset left arm pain with radiation to the chest. ICA: Critical lesion in the distal circumflex and diffuse critical lesion in the dRCA, both treated with LOIDA x 3 (3.0 x 28m, 2.0 x 30mm, 2.5 x 30mm). No residual high-grade lesions requiring additional interventions. Status: Acute (9) Type 2 diabetes mellitus: Problem comment: -diet controlled. Accu-Cheks and insulin sliding scale -A1c is 6.6, previously 6.7 -previously on metformin and agreeable to restart this at time of discharge Status: Acute (10) History of panic attacks: Problem comment: -Dr. Rouse has prescribed p.r.n. Ativan Status: Acute (11) Raynauds disease: Problem comment: -nifedipine has been moderately effective Status: Acute (12) Hypertension: Problem comment: -no current medications -normotensive 05/29 Status: Acute (13) Alcohol use: Problem comment: -last drink was 6 beers and rum on Sunday 05/27, denies daily use -denies h/o withdrawals or seizures -[facility] protocol Status: Acute Total Time Spent Total Time Spent: Today I spent 55 minutes seeing the patient, reviewing Expanse and EPIC notes/diagnostics, discussing the care plan with our care time that includes social work, PT/OT, pharmacy, RT, residential and documenting my impressions and plan in the medical record. Subjective Date Seen: 05/29/25 Interval history: Patient is seen lying in bed, tired, did not sleep well overnight. Denies headache or dizziness. No neck pain or stiffness. Denies chest pain or shortness of breath. No nausea, tolerated orals last evening. Is anxious to go home. Awaiting BC x2, UC. Lyme and tick-borne panel are pending. WBC has normalized. Lactate trending down finally. Hemoglobin and platelets have dropped following large volume IVF resuscitation. Last fever was 101.3? at 8:30 p.m. last night, just 12 hours ago. Continues on IV Zosyn, IV vancomycin, oral doxycycline Exam Narrative: Exam Narrative: Reassessment following sepsis admission PHYSICAL EXAM General: Tired otherwise pleasant, conversant, NAD HEENT: Normocephalic, atraumatic, sclera white, EOMI, oral mucosa moist Cardiovascular: Mild tachycardia, improved overnight. No pitting edema Pulmonary: CTA bilaterally without rhonchi, rales, expiratory wheezes. No dyspnea on room air Abdominal: Soft, nondistended, NTTP Neurological: Alert, answering questions appropriately, cranial nerves intact, no focal findings Extremities: No gross joint deformity or swelling. AROMI. Neurovascularly intact Skin: Warm, dry. Acceptable skin turgor Const: Vital Signs, click to edit/add: Vital Signs - 24 hr 05/28/25 17:53 05/28/25 17:58 05/28/25 18:00 Temperature 97.8 F Pulse Rate 113 H 112 H Pulse Rate [Pulse Oximeter] 112 H Pulse Rate [Radial ] Respiratory Rate 22 11 L 17 Blood Pressure Blood Pressure [Ri ght Arm] Blood Pressure [Ri ght Upper Arm] 161/135 H Pulse Oximetry 86 L 90 90 Oxygen Delivery Me thod Room Air Nasal Cannula Nasal Cannula Oxygen Flow Rate 2 2 05/28/25 18:01 05/28/25 18:01 05/28/25 18:15 Temperature Pulse Rate 116 H 123 H Pulse Rate [Pulse Oximeter] Pulse Rate [Radial ] Respiratory Rate 19 37 H Blood Pressure 118/94 H Blood Pressure [Ri ght Arm] Blood Pressure [Ri ght Upper Arm] Pulse Oximetry 91 92 90 Oxygen Delivery Me thod Nasal Cannula Nasal Cannula Nasal Cannula Oxygen Flow Rate 2 2 2 05/28/25 18:17 05/28/25 18:42 05/28/25 18:45 Temperature Pulse Rate 124 H 125 H Pulse Rate [Pulse Oximeter] Pulse Rate [Radial ] Respiratory Rate 24 38 H Blood Pressure 172/125 H Blood Pressure [Ri ght Arm] Blood Pressure [Ri ght Upper Arm] Pulse Oximetry 90 82 L 97 Oxygen Delivery Me thod Nasal Cannula Nasal Cannula OxyMask Oxygen Flow Rate 2 2 5 05/28/25 18:46 05/28/25 18:47 05/28/25 19:00 Temperature Pulse Rate 125 H 126 H 118 H Pulse Rate [Pulse Oximeter] Pulse Rate [Radial ] Respiratory Rate 18 25 H 18 Blood Pressure 149/91 H Blood Pressure [Ri ght Arm] Blood Pressure [Ri ght Upper Arm] Pulse Oximetry 98 92 95 Oxygen Delivery Me thod OxyMask OxyMask OxyMask Oxygen Flow Rate 5 5 5 05/28/25 19:04 05/28/25 19:15 05/28/25 19:16 Temperature Pulse Rate 121 H 119 H 118 H Pulse Rate [Pulse Oximeter] Pulse Rate [Radial ] Respiratory Rate 19 20 15 Blood Pressure 151/95 H 151/89 H Blood Pressure [Ri ght Arm] Blood Pressure [Ri ght Upper Arm] Pulse Oximetry 96 95 96 Oxygen Delivery Me thod OxyMask OxyMask OxyMask Oxygen Flow Rate 5 3 3 05/28/25 19:30 05/28/25 19:31 05/28/25 19:32 Temperature Pulse Rate 118 H 119 H 118 H Pulse Rate [Pulse Oximeter] Pulse Rate [Radial ] Respiratory Rate 24 17 22 Blood Pressure 149/89 H Blood Pressure [Ri ght Arm] Blood Pressure [Ri ght Upper Arm] Pulse Oximetry 96 98 95 Oxygen Delivery Me thod OxyMask OxyMask OxyMask Oxygen Flow Rate 3 3 3 05/28/25 19:45 05/28/25 19:46 05/28/25 20:00 Temperature Pulse Rate 122 H 118 H 122 H Pulse Rate [Pulse Oximeter] Pulse Rate [Radial ] Respiratory Rate 15 23 22 Blood Pressure 132/80 Blood Pressure [Ri ght Arm] Blood Pressure [Ri ght Upper Arm] Pulse Oximetry 100 97 94 Oxygen Delivery Me thod OxyMask OxyMask OxyMask Oxygen Flow Rate 3 3 3 05/28/25 20:01 05/28/25 20:15 05/28/25 20:30 Temperature Pulse Rate 125 H 128 H 127 H Pulse Rate [Pulse Oximeter] Pulse Rate [Radial ] Respiratory Rate 15 30 H 28 H Blood Pressure 136/90 H Blood Pressure [Ri ght Arm] Blood Pressure [Ri ght Upper Arm] Pulse Oximetry 95 93 92 Oxygen Delivery Me thod OxyMask OxyMask Room Air Oxygen Flow Rate 3 3 05/28/25 20:31 05/28/25 20:32 05/28/25 20:45 Temperature 101.3 F H Pulse Rate 128 H 124 H 124 H Pulse Rate [Pulse Oximeter] Pulse Rate [Radial ] Respiratory Rate 21 7 L 7 L Blood Pressure 128/85 Blood Pressure [Ri ght Arm] Blood Pressure [Ri ght Upper Arm] Pulse Oximetry 92 93 92 Oxygen Delivery Me thod Room Air Oxygen Flow Rate 05/28/25 21:00 05/28/25 21:01 05/28/25 21:15 Temperature Pulse Rate 127 H 130 H 141 H Pulse Rate [Pulse Oximeter] Pulse Rate [Radial ] Respiratory Rate 19 0 L 0 L Blood Pressure 121/79 Blood Pressure [Ri ght Arm] Blood Pressure [Ri ght Upper Arm] Pulse Oximetry 97 98 91 Oxygen Delivery Me thod Oxygen Flow Rate 05/28/25 21:30 05/28/25 21:31 05/28/25 21:32 Temperature Pulse Rate 126 H 126 H 125 H Pulse Rate [Pulse Oximeter] Pulse Rate [Radial ] Respiratory Rate 6 L 6 L Blood Pressure 130/82 Blood Pressure [Ri ght Arm] Blood Pressure [Ri ght Upper Arm] Pulse Oximetry 91 93 95 Oxygen Delivery Me thod Oxygen Flow Rate 05/28/25 21:45 05/28/25 22:00 05/28/25 22:01 Temperature Pulse Rate 119 H 120 H 121 H Pulse Rate [Pulse Oximeter] Pulse Rate [Radial ] Respiratory Rate 17 16 30 H Blood Pressure 126/84 Blood Pressure [Ri ght Arm] Blood Pressure [Ri ght Upper Arm] Pulse Oximetry 92 95 94 Oxygen Delivery Me thod Oxygen Flow Rate 05/28/25 22:15 05/28/25 22:30 05/28/25 22:31 Temperature Pulse Rate 123 H 111 H 111 H Pulse Rate [Pulse Oximeter] Pulse Rate [Radial ] Respiratory Rate 23 27 H 23 Blood Pressure 114/79 Blood Pressure [Ri ght Arm] Blood Pressure [Ri ght Upper Arm] Pulse Oximetry 90 92 94 Oxygen Delivery Me thod Oxygen Flow Rate 05/28/25 22:32 05/28/25 22:45 05/28/25 23:12 Temperature Pulse Rate 111 H 112 H Pulse Rate [Pulse Oximeter] Pulse Rate [Radial ] Respiratory Rate 11 L 19 Blood Pressure Blood Pressure [Ri ght Arm] Blood Pressure [Ri ght Upper Arm] Pulse Oximetry 92 91 96 Oxygen Delivery Me thod Oxygen Flow Rate 05/28/25 23:12 05/28/25 23:12 05/28/25 23:17 Temperature 99.5 F Pulse Rate Pulse Rate [Pulse Oximeter] Pulse Rate [Radial ] Respiratory Rate 18 Blood Pressure Blood Pressure [Ri ght Arm] 138/96 H Blood Pressure [Ri ght Upper Arm] Pulse Oximetry 96 97 97 Oxygen Delivery Me thod Room Air Room Air Room Air Oxygen Flow Rate 05/28/25 23:17 05/29/25 00:01 05/29/25 06:51 Temperature 98.1 F Pulse Rate 113 H Pulse Rate [Pulse Oximeter] Pulse Rate [Radial ] Respiratory Rate 18 Blood Pressure Blood Pressure [Ri ght Arm] 119/77 Blood Pressure [Ri ght Upper Arm] Pulse Oximetry 97 97 Oxygen Delivery Me thod Room Air Room Air Oxygen Flow Rate 05/29/25 07:00 05/29/25 07:00 05/29/25 07:00 Temperature 97.6 F Pulse Rate 101 H Pulse Rate [Pulse Oximeter] Pulse Rate [Radial ] 108 H 108 H Respiratory Rate 22 22 Blood Pressure Blood Pressure [Ri ght Arm] 111/64 Blood Pressure [Ri ght Upper Arm] Pulse Oximetry 98 Oxygen Delivery Me thod Room Air Oxygen Flow Rate 05/29/25 07:38 Temperature 97.6 F Pulse Rate Pulse Rate [Pulse Oximeter] Pulse Rate [Radial ] 108 H Respiratory Rate 22 Blood Pressure Blood Pressure [Ri ght Arm] 111/64 Blood Pressure [Ri ght Upper Arm] Pulse Oximetry 98 Oxygen Delivery Me thod Room Air Oxygen Flow Rate Labs Labs: Laboratory Results - last 24 hr 05/28/25 05/28/25 05/28/25 17:45 18:09 18:10 WBC 18.33 H RBC 5.02 Hgb 15.9 Hct 45.0 MCV 90 MCH 32 MCHC 35 RDW Coeff of Christopher 12.0 Plt Count 227 Neut % (Auto) 87.4 H Lymph % (Auto) 9.2 L [place] % (Auto) 2.7 Eos % (Auto) 0.4 Baso % (Auto) 0.0 Neut # (Auto) 16.00 H Lymph # (Auto) 1.70 [place] # (Auto) 0.50 Eos # (Auto) 0.10 Baso # (Auto) 0.00 Abs Immat Gran (auto) 0.10 Imm/Tot Granulo (auto) 0.3 VBG pH VBG pCO2 VBG pO2 VBG HCO3 Sodium 134 L Potassium 3.5 L Chloride 100 Carbon Dioxide 22 Anion Gap 12 BUN 12 Creatinine 1.1 Estimated Creat Clear Estimated GFR 79 Glucose 201 H Hemoglobin A1c 6.6 H Lactate 3.7 H Calcium 10.1 Magnesium 1.4 L Total Bilirubin 0.5 AST 32 ALT 27 Alkaline Phosphatase 57 Troponin I < 0.01 C-Reactive Protein < 0.5 L Total Protein 7.8 Albumin 4.8 Procalcitonin 0.07 TSH 1.700 Urine Color Urine Appearance Urine pH Ur Specific [place] Urine Protein Urine Glucose (UA) Urine Ketones Urine Blood Urine Nitrite Urine Bilirubin Urine Urobilinogen Ur Leukocyte Esterase Urine RBC Urine WBC Ur Squamous Epith Cells Urine Bacteria Ethyl Alcohol < 0.01 SARS-CoV-2 (PCR) Negative SARS-CoV-2 Influenza Type A (PCR) Negative PCR FLU A Influenza Type B (PCR) Negative PCR FLU B RSV (PCR) Negative PCR RSV Lab Acknowledgement POC Creatinine 1.2 POC Troponin I 0.00 L 05/28/25 05/28/25 05/28/25 19:57 20:00 20:44 WBC RBC Hgb Hct MCV MCH MCHC RDW Coeff of Christopher Plt Count Neut % (Auto) Lymph % (Auto) [place] % (Auto) Eos % (Auto) Baso % (Auto) Neut # (Auto) Lymph # (Auto) [place] # (Auto) Eos # (Auto) Baso # (Auto) Abs Immat Gran (auto) Imm/Tot Granulo (auto) VBG pH VBG pCO2 VBG pO2 VBG HCO3 Sodium Potassium Chloride Carbon Dioxide Anion Gap BUN Creatinine Estimated Creat Clear Estimated GFR Glucose Hemoglobin A1c Lactate 2.8 H Calcium Magnesium Total Bilirubin AST ALT Alkaline Phosphatase Troponin I C-Reactive Protein Total Protein Albumin Procalcitonin TSH Urine Color Yellow Urine Appearance Clear Urine pH 6.5 Ur Specific [place] 1.010 Urine Protein Negative Urine Glucose (UA) Negative Urine Ketones 1+ A Urine Blood Negative Urine Nitrite Negative Urine Bilirubin Negative Urine Urobilinogen 0.2 Ur Leukocyte Esterase Negative Urine RBC 0-2 Urine WBC 0-2 Ur Squamous Epith Cells None Urine Bacteria None Ethyl Alcohol SARS-CoV-2 (PCR) Influenza Type A (PCR) Influenza Type B (PCR) RSV (PCR) Lab Acknowledgement POC Creatinine POC Troponin I 0.04 05/28/25 05/28/25 05/28/25 21:20 21:45 22:47 WBC RBC Hgb Hct MCV MCH MCHC RDW Coeff of Christopher Plt Count Neut % (Auto) Lymph % (Auto) [place] % (Auto) Eos % (Auto) Baso % (Auto) Neut # (Auto) Lymph # (Auto) [place] # (Auto) Eos # (Auto) Baso # (Auto) Abs Immat Gran (auto) Imm/Tot Granulo (auto) VBG pH VBG pCO2 VBG pO2 VBG HCO3 Sodium Potassium Chloride Carbon Dioxide Anion Gap BUN Creatinine Estimated Creat Clear Estimated GFR Glucose Hemoglobin A1c Lactate Calcium Magnesium Total Bilirubin AST ALT Alkaline Phosphatase Troponin I C-Reactive Protein Total Protein Albumin Procalcitonin TSH Urine Color Urine Appearance Urine pH Ur Specific [place] Urine Protein Urine Glucose (UA) Urine Ketones Urine Blood Urine Nitrite Urine Bilirubin Urine Urobilinogen Ur Leukocyte Esterase Urine RBC Urine WBC Ur Squamous Epith Cells Urine Bacteria Ethyl Alcohol SARS-CoV-2 (PCR) Influenza Type A (PCR) Influenza Type B (PCR) RSV (PCR) Lab Acknowledgement Test Added Test Added POC Creatinine POC Troponin I 0.05 H 05/28/25 05/28/25 05/29/25 23:25 23:48 02:00 WBC RBC Hgb Hct MCV MCH MCHC RDW Coeff of Christopher Plt Count Neut % (Auto) Lymph % (Auto) [place] % (Auto) Eos % (Auto) Baso % (Auto) Neut # (Auto) Lymph # (Auto) [place] # (Auto) Eos # (Auto) Baso # (Auto) Abs Immat Gran (auto) Imm/Tot Granulo (auto) VBG pH 7.468 H 7.421 VBG pCO2 33 L 33 L VBG pO2 46.0 66.6 H VBG HCO3 24 22 Sodium Potassium Chloride Carbon Dioxide Anion Gap BUN Creatinine Estimated Creat Clear Estimated GFR Glucose Hemoglobin A1c Lactate 3.2 H 3.3 H Calcium Magnesium Total Bilirubin AST ALT Alkaline Phosphatase Troponin I 0.09 H* 0.11 H* C-Reactive Protein Total Protein Albumin Procalcitonin TSH Urine Color Urine Appearance Urine pH Ur Specific [place] Urine Protein Urine Glucose (UA) Urine Ketones Urine Blood Urine Nitrite Urine Bilirubin Urine Urobilinogen Ur Leukocyte Esterase Urine RBC Urine WBC Ur Squamous Epith Cells Urine Bacteria Ethyl Alcohol SARS-CoV-2 (PCR) Influenza Type A (PCR) Influenza Type B (PCR) RSV (PCR) Lab Acknowledgement Test Added POC Creatinine POC Troponin I 05/29/25 05/29/25 05/29/25 06:15 06:15 07:36 WBC 8.03 RBC 3.96 L Hgb 12.5 L Hct 35.5 L MCV 90 MCH 32 MCHC 35 RDW Coeff of Christopher 12.1 Plt Count 122 L Neut % (Auto) 93.9 H Lymph % (Auto) 5.4 L [place] % (Auto) 0.4 Eos % (Auto) 0.2 Baso % (Auto) 0.0 Neut # (Auto) 7.50 H Lymph # (Auto) 0.40 L [place] # (Auto) 0.00 Eos # (Auto) 0.02 Baso # (Auto) 0.00 Abs Immat Gran (auto) 0.01 Imm/Tot Granulo (auto) 0.1 VBG pH 7.447 H VBG pCO2 32 L VBG pO2 57.8 H VBG HCO3 22 Sodium 132 L Potassium 3.6 Chloride 103 Carbon Dioxide 22 Anion Gap 7 BUN 12 Creatinine 0.7 Estimated Creat Clear 107.60 Estimated GFR 109 Glucose 261 H Hemoglobin A1c Lactate 2.0 H Cancelled Calcium 9.0 Magnesium 1.6 Total Bilirubin 0.6 AST 27 ALT 22 Alkaline Phosphatase 38 L Troponin I 0.09 H* C-Reactive Protein 2.3 H Total Protein 6.5 Albumin 3.9 Procalcitonin TSH Urine Color Urine Appearance Urine pH Ur Specific [place] Urine Protein Urine Glucose (UA) Urine Ketones Urine Blood Urine Nitrite Urine Bilirubin Urine Urobilinogen Ur Leukocyte Esterase Urine RBC Urine WBC Ur Squamous Epith Cells Urine Bacteria Ethyl Alcohol SARS-CoV-2 (PCR) Influenza Type A (PCR) Influenza Type B (PCR) RSV (PCR) Lab Acknowledgement Test Added POC Creatinine POC Troponin I
[2025-05-29] MEDS: DOXYCYCLINE HYCLATE 100 MG PO ×2 (09:28→21:22)
[2025-05-29] MEDS: ACETAMINOPHEN 325 MG TABLET 1000 MG PO ×2 (09:28→12:32)
[2025-05-29] MEDS: POTASSIUM BICARB 25 MEQ EFFERVESCENT TAB PO ×2 (09:28→21:21)
[2025-05-29] MEDS: SODIUM CHLORIDE 0.9 % (FLUSH) 10 ML SYRINGE 5 ML IVF ×2 (09:29→21:24)
[2025-05-29] MEDS: VANCOMYCIN 1.25 GM/250 ML 1.25 GM/250 ML PIGGYBACK IVPB ×2 (11:09→22:09)
[2025-05-29] MEDS: CALCIUM CARBONATE 500 MG CHEW PO ×2 (11:50→12:27)
[2025-05-29] MEDS: MAG HYDROX/ALUMINUM HYD/SIMETH 30 ML ORAL.SUSP 15 ML PO (12:25)
[2025-05-29] MEDS: OMEPRAZOLE 20 MG CAPSULE DR PO (12:26)
--- NOTE | 2025-05-29 15:44 | PC.SOCIAL ---
Social Service Consult: SW met with patient to discuss resources and supports. SW verified demographics are all correct in the chart, which patient states that they are. Patient discussed with SW the stress that he has going on with his divorce, losing his insurance through the divorce, and also his difficulty with giving up drinking socially. SW listened while patient processed the loss of his marriage and how this impact him socially. 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 SW listened and provided empathy to patient. SW discussed patient connecting with [facility] to see if there are any insurances that he could qualify for especially with all of the medical concerns he has going on. Patient states that he has been in therapy before and found it helpful, however, it was too expensive. SW discussed that when he gets new insurance it would be good to look into therapy again as there could be different copays and different options for therapy. Patient explains that he has two daughters that are his motivation for stopping drinking. Patient also discussed that his dad had to quit drinking around this age and is a good support for him too. Patient reports that his mom and two daughters are his main supports. SW to check in with patient again on 05/30.
[2025-05-29] MEDS: THIAMINE 100 MG TABLET 250 MG PO (16:22)
[2025-05-29 17:43] LABS: Cannabinoid Screen Urine POSITIVE (Negative); Methamphetamines Screen Urine Negative (Negative); Tricyclic Antidepressant Urine Negative (Negative)
[2025-05-29] MEDS: INSULIN ASPART 100 UNIT/ML SUBCUT ×2 (17:46→22:05)
--- NOTE | 2025-05-29 18:57 | PC.NURSE ---
End of shift report : Alert and oriented x 4. Denies any pain or SOB. Continues to have tachycardia with pulse ranging from 106-136 this shift, MD aware no new orders at this time. Afebrile, denies any chills or sweating. Voiding clear, pale yellow urine. Patient IV saline lock at 1545 d/t adequate oral intake. CIWA scores obtained, patient exhibiting increased anxiety, headache and tachycardia, PRN lorazepam administered and pulse rate decreased. Appetite good, eating 75-100% of food offered.
[2025-05-30 02:45] VITALS: PULSE 99
[2025-05-30] MEDS: PIPERACILLIN/TAZOBACTAM 3.375 GM in 0.9 % SODIUM CHLORIDE Mini-bag 100 ML IVPB ×2 (03:15→09:20)
[2025-05-30 03:20] VITALS: BP 130/82; PULSE 91; RESP 17; TEMP 36.4; O2SAT 96
[2025-05-30] MEDS: OMEPRAZOLE 20 MG CAPSULE DR PO (05:18)
[2025-05-30 06:31] LABS: HCO3 VBG 25 mmol/L (21-28); PCO2 VBG 40 mmHG (40-50); PO2 VBG 69.0 mmHG (25-47); pH VBG 7.410 (7.32-7.43)
[2025-05-30 06:34] LABS: Hematocrit* 37.5 % (37.0-53.0); Hemoglobin* 13.2 gm/dL (13.5-17.5); Immature Granulocytes Abs Auto 0.01 K/uL (0.00-0.30); Immature Granulocytes Pct Auto 0.1 %; Mean Corpuscular HGB Conc 35 gm/dL (32-36); Mean Corpuscular Hemoglobin 32 pg (26-34); Mean Corpuscular Volume 91 fL (80-100); RDW Coefficient of Variation % 12.1 % (11.5-15.5); Red Blood Count* 4.13 m/uL (4.30-5.90); White Blood Count* 10.11 K/uL (4.50-11.00)
[2025-05-30 06:40] LABS: Lymphocytes Absolute Auto 1.80 K/uL (0.90-2.90); Slide Review Reflex No
[2025-05-30 06:52] LABS: Albumin* 4.3 g/dL (3.3-5.0); Chloride* 103 mmol/L (96-114); Potassium* 4.1 mmol/L (3.6-5.1); Sodium* 134 mmol/L (135-149)
[2025-05-30 06:54] LABS: Blood Urea Nitrogen* 16 mg/dL (7-30); Creatinine* 0.7 mg/dL (0.5-1.5); Est. Creatinine Clearance* 107.60; Estimated Glomerular Filt Rate 109 ml/min
[2025-05-30 06:55] LABS: Alanine Aminotransferase* 18 U/L (4-50); Alkaline Phosphatase* 37 U/L (40-150); Anion Gap 7 mEq/L (7-15); Aspartate Amino Transferase* 23 U/L (12-35); Bilirubin Total* 0.5 mg/dL (0.1-1.5); Carbon Dioxide* 24 mmol/L (20-32)
[2025-05-30 06:56] LABS: Calcium* 9.8 mg/dL (8.4-10.6); Glucose* 167 mg/dL (60-115); Total Protein* 7.0 g/dL (6.0-8.3)
[2025-05-30 07:06] VITALS: PULSE 78
[2025-05-30 07:30] VITALS: BP 121/91; PULSE 60; PULSE 95; RESP 16; RESP 18; TEMP 36.4; O2SAT 98
--- NOTE | 2025-05-30 08:04 | PC.NURSE ---
Shift note ([id number]): Patient pleasant, alert and oriented. Independent in room. Refused continuous pulse ox. Pt education not effective. Given PRN lorazepam for anxiety. CIWAs 0-2 during the night.?
[2025-05-30] MEDS: THIAMINE 100 MG TABLET 250 MG PO (09:20)
[2025-05-30] MEDS: DOXYCYCLINE HYCLATE 100 MG PO (09:21)
[2025-05-30] MEDS: POTASSIUM BICARB 25 MEQ EFFERVESCENT TAB PO (09:22)
[2025-05-30] MEDS: SODIUM CHLORIDE 0.9 % (FLUSH) 10 ML SYRINGE 5 ML IVF (09:22)
--- NOTE | 2025-05-30 10:12 | P.DS_ITS ---
DS: Providers Provider Date Seen: 05/30/25 Date of admission: 05/28/25 23:02 Primary care physician: Kahlil Rouse MD Admitting Clinician: Fran Pedraza MD Consults: 05/28/25 23:12 Consult to Respiratory Therapy [CONS] Routine Comment: Reason(s) for RT Consult:: Consult Attending Physician on discharge: Joyce Diaz, FLACO, MANUELC [facility] Date of Discharge: 05/30/25 DS: Diagnosis Discharge Diagnosis (1) Severe sepsis: Status: Resolved Problem details: -source unclear. Imaging unremarkable. febrile in the ER. Continues to be tachycardic. Qualifies for severe sepsis. Lactate elevated and bounced back high after initially responding to fluids. Getting broad-spectrum antibiotics (zosyn, vanc, doxy). I am covering him with doxycycline in case this is a tick- borne presentation. No evidence of meningitis or endocarditis. We do have blood cultures and urine cultures pending. I suspect he has either viremic and we will try to narrow that down, has a tick-borne illness, or is bacteremic. PCR for stool pathogens pending a loose stool. will also check for CDIFF if stool is loose. Patient remained fever free > 24 hours prior to discharge. No new or worsening symptoms nor meningeal signs revealed themselves. BC x2 and UC showing NGTD. Lactate trended down. Lyme titer and tick panel pending at time of discharge. Patient is discharged on empiric oral doxycycline to complete 10 day course. (2) Elevated lactic acid level: Status: Acute Problem details: -received 6 L IV fluids, maintenance 250ml LR, and broad spectrum antibiotics In setting of sepsis, significant recent alcohol use. Max glucose 261, negative urine glucose. Trended down prior to discharge. Recommend outpatient echocardiogram which can be set up by his PCP given elevated troponin as well. (3) Hyponatremia: Status: Resolved Problem details: Sodium 134->132->134 during course of hospital stay. (4) Hypokalemia: Status: Acute Problem details: Potassium improved to 4.1 prior to discharge following replacement. (5) Hypomagnesemia: Status: Acute Problem details: Magnesium 1.4 on admission, received 2 g IV and improved to 1.6 prior to discharge. (6) Elevated troponin I level: Status: Acute Problem details: Troponins 0.09->0.11->0.09 during hospital course, suspect demand ischemia, EKG with tachycardia otherwise similar to previous. Asymptomatic without chest pain. Tachycardia resolved prior to discharge. Recommend outpatient echocardiogram with PCP as patient did not want to wait for inpatient echocardiogram, instead anxious to discharge to home. (7) Demand ischemia: Status: Acute Problem details: As above, troponin went up to 0.09 several hours after presentation. no current chest pain, EKG shows no ischemia, likely from tachycardia, fever, underlying infection. Received a full aspirin and IV metoprolol on admission. Outpatient follow-up as above. (8) CAD (coronary artery disease): Status: Acute Problem details: 09/2022: Acute SD - sudden onset left arm pain with radiation to the chest. ICA: Critical lesion in the distal circumflex and diffuse critical lesion in the dRCA, both treated with LOIDA x 3 (3.0 x 28m, 2.0 x 30mm, 2.5 x 30mm). No residual high-grade lesions requiring additional interventions. (9) Type 2 diabetes mellitus: Status: Acute Problem details: Hemoglobin A1c is 6.6, previously 6.7. Was previously on metformin but has since been trying to improve numbers with diet and exercise. Admits alcohol use likely playing a large factor. Is agreeable to restart metformin on discharge and reduce alcohol use. Outpatient follow-up with PCP for ongoing management and recheck of A1c. (10) History of panic attacks: Status: Acute Problem details: Dr. Rouse has prescribed p.r.n. Ativan (11) Raynauds disease: Status: Acute Problem details: Nifedipine has been moderately effective (12) Hypertension: Status: Acute Problem details: Patient not currently on any antihypertensives. Blood pressures have been borderline normotensive following resolution of sepsis. Given comorbidities of diabetes mellitus and CAD, recommend outpatient follow-up with PCP for ongoing management and medication needs. (13) Alcohol use: Status: Acute Problem details: Patient has denied history of alcohol withdrawal or seizures. Reports alcohol use is not daily but is significant, binge worthy during days of use. Have discussed importance of decreased use, abstinence. DS: Summary Hospital Course Hospital Course: Course of care and details as noted above. As above, admitted with severe sepsis, source yet unknown at time of discharge. Covering with doxycycline as Lyme titer/tick-borne illness panel is not yet complete. BC x2 and UC have shown no growth. No meningeal signs. This certainly could be a viremia. Will need outpatient follow-up with PCP for echocardiogram as he opted not to wait for inpatient procedure. Will also need outpatient follow-up for multiple comorbidities and medication management. Status at Discharge Cognitive/behavioral status at discharge: Doing office work from his laptop in the hospital room, anxious to discharge home. Functional status at discharge: independent ambulation Overall status at discharge: patient is back to baseline Time Spent with Patient Time attestation: Total time spent providing and/or coordinating discharge services: Exam Narrative: Exam Narrative: PHYSICAL EXAM General: Pleasant, conversant, NAD Cardiovascular: RRR Pulmonary: No dyspnea Neurological: Alert, answering questions appropriately Skin: Warm, dry. Const: Vital Signs, click to edit/add: Vital Signs - 24 hr 05/29/25 11:00 05/29/25 15:00 05/29/25 15:00 Temperature 98.4 F 98.7 F Pulse Rate 116 H Pulse Rate [Radial ] 111 H 136 H Respiratory Rate 18 18 Blood Pressure [Ri ght Arm] 136/85 130/81 Pulse Oximetry 96 97 Oxygen Delivery Me thod Room Air Room Air 05/29/25 15:00 05/29/25 19:46 05/29/25 23:37 Temperature 98.1 F 97.9 F Pulse Rate Pulse Rate [Radial ] 136 H 111 H 101 H Respiratory Rate 18 18 18 Blood Pressure [Ri ght Arm] 137/85 125/82 Pulse Oximetry 98 98 Oxygen Delivery Me thod Room Air Room Air 05/29/25 23:37 05/30/25 02:45 05/30/25 03:20 Temperature 97.5 F L Pulse Rate 99 Pulse Rate [Radial ] 91 Respiratory Rate 17 Blood Pressure [Ri ght Arm] 130/82 Pulse Oximetry 98 96 Oxygen Delivery Me thod Room Air 05/30/25 07:06 05/30/25 07:30 05/30/25 07:30 Temperature 97.6 F Pulse Rate 78 Pulse Rate [Radial ] 95 60 Respiratory Rate 18 16 Blood Pressure [Ri ght Arm] 121/91 H Pulse Oximetry 98 Oxygen Delivery Me thod Room Air DS: Data Data Completed and Pending Pending studies at discharge: Lyme titer, tick-borne panel, preliminary BC and UC Labs on day of discharge: Labs from last 24 hours 05/30/25 05/29/25 05/28/25 05:56 16:15 19:57 WBC 10.11 RBC 4.13 L Hgb 13.2 L Hct 37.5 MCV 91 MCH 32 MCHC 35 RDW Coeff of Christopher 12.1 Plt Count 164 Neut % (Auto) 72.2 H Lymph % (Auto) 17.4 L [place] % (Auto) 5.8 Eos % (Auto) 4.4 Baso % (Auto) 0.1 Neut # (Auto) 7.30 H Lymph # (Auto) 1.80 [place] # (Auto) 0.60 Eos # (Auto) 0.44 Baso # (Auto) 0.01 Abs Immat Gran (auto) 0.01 Imm/Tot Granulo (auto) 0.1 VBG pH 7.410 VBG pCO2 40 VBG pO2 69.0 H VBG HCO3 25 Sodium 134 L Potassium 4.1 Chloride 103 Carbon Dioxide 24 Anion Gap 7 BUN 16 Creatinine 0.7 Estimated Creat Clear 107.60 Estimated GFR 109 Glucose 167 H Calcium 9.8 Total Bilirubin 0.5 AST 23 ALT 18 Alkaline Phosphatase 37 L Troponin I 0.04 C-Reactive Protein 2.0 H Total Protein 7.0 Albumin 4.3 Urine Opiates Screen Cancelled Negative Ur Buprenorphine Scrn Cancelled Ur Oxycodone Screen Cancelled Negative Urine Methadone Screen Cancelled Negative Ur Barbiturates Screen Cancelled Negative U Tricyclic Antidepress Cancelled Negative Ur Phencyclidine Scrn Cancelled Negative Ur Amphetamines Screen Cancelled Negative U Methamphetamines Scrn Cancelled Negative U Benzodiazepines Scrn Cancelled Negative Urine Cocaine Screen Cancelled Negative U Marijuana (THC) Screen Cancelled POSITIVE A Ur Drug Screen Comment Cancelled See Note A. phagocytophilum DNA Babesia Species (PCR) Lyme Disease Antibody Pending E.ewingii/canis DNA PCR E. muris-like DNA (PCR) Babesia microti (PCR) E. chaffeensis (PCR) 05/28/25 02:00 WBC RBC Hgb Hct MCV MCH MCHC RDW Coeff of Christopher Plt Count Neut % (Auto) Lymph % (Auto) [place] % (Auto) Eos % (Auto) Baso % (Auto) Neut # (Auto) Lymph # (Auto) [place] # (Auto) Eos # (Auto) Baso # (Auto) Abs Immat Gran (auto) Imm/Tot Granulo (auto) VBG pH VBG pCO2 VBG pO2 VBG HCO3 Sodium Potassium Chloride Carbon Dioxide Anion Gap BUN Creatinine Estimated Creat Clear Estimated GFR Glucose Calcium Total Bilirubin AST ALT Alkaline Phosphatase Troponin I C-Reactive Protein Total Protein Albumin Urine Opiates Screen Ur Buprenorphine Scrn Ur Oxycodone Screen Urine Methadone Screen Ur Barbiturates Screen U Tricyclic Antidepress Ur Phencyclidine Scrn Ur Amphetamines Screen U Methamphetamines Scrn U Benzodiazepines Scrn Urine Cocaine Screen U Marijuana (THC) Screen Ur Drug Screen Comment A. phagocytophilum DNA Pending Babesia Species (PCR) Pending Lyme Disease Antibody E.ewingii/canis DNA PCR Pending E. muris-like DNA (PCR) Pending Babesia microti (PCR) Pending E. chaffeensis (PCR) Pending Preliminary micro results at discharge 05/28/25 19:01 Blood Culture - Preliminary Blood NO GROWTH AFTER 24 HOURS 05/28/25 18:19 Blood Culture - Preliminary Blood NO GROWTH AFTER 24 HOURS 05/28/25 20:00 Urine Culture - Preliminary Urine,Clean Catch Imaging CTA chest: Attestation: I have reviewed the pertinent imaging results. Radiologist's impression: Lungs and pleura: Granulomas in the medial right lower lobe. Lungs are clear Heart and vasculature: Heart size is normal. Thoracic aorta and pulmonary artery are normal in caliber. No pulmonary emboli. Lymph nodes/mediastinum: No mediastinal, hilar, or axillary adenopathy. Calcified mediastinal and right hilar nodes. Chest wall: No masses. Upper abdomen: Splenic granulomas. Low-attenuation lesion in the spleen could represent a cyst or hemangioma. Liver granulomas. Small hiatal hernia. Bones: Unremarkable for age. IMPRESSION: 1. No pulmonary emboli pulmonary. No acute findings. CT scan - abdomen: Attestation: I have reviewed the pertinent imaging results. Radiologist's impression: Lower chest: Please see same day CT chest. Liver: Non cirrhotic morphology. Punctate calcified granuloma in segment 6. No suspicious mass. Gallbladder and bile ducts: No stones or inflammation. No biliary dilatation. Pancreas: No ductal dilatation. No mass or inflammation. Spleen: Normal in size. Stable cyst or hemangioma measuring 0.9 cm (2). Multiple subcentimeter calcified granulomas compatible with prior granulomatous infection. Splenule. Adrenal glands: No nodules. Kidneys: Symmetric enhancement with no perinephric fat stranding. No suspicious masses, stones, or hydronephrosis. Stable right upper pole subcentimeter cortical hypodensity which is too small to characterize, statistically a cyst. GI tract: Stomach is decompressed, limiting evaluation, but appears grossly normal. Small and large bowel is normal in caliber without obstruction. Normal appendix (/). A few scattered colonic diverticuli without diverticulitis. Vasculature: Abdominal aorta is normal in caliber. Mesenteric arteries are patent. Mild aortoiliac atherosclerotic disease. Patent hepatic, portal, splenic and bilateral renal veins. Duplicated IVC, a benign anatomic variant. Lymph nodes: No lymphadenopathy. Peritoneum/Abdominal Wall: Small bilateral fat containing inguinal hernias. No sign of mass or infiltration. No free air or significant free fluid. Pelvis: Mild mucosal hyperenhancement of the bladder. Bones: No acute fracture. No aggressive appearing lytic or blastic osseous lesion. [id number] multilevel degenerative changes of the spine. IMPRESSION: 1. Mild mucosal hyperenhancement of the bladder which is nonspecific and may be seen in the setting of cystitis of infectious or inflammatory etiology. Correlate with urinalysis and culture. 2. A few colonic diverticuli without diverticulitis. Discharge Plan Discharge Disposition: Home, Self-Care Date of Admission: 05/28/25 23:02 Attending Provider on Discharge: Joyce Diaz Primary Care Provider: Kahlil Rouse Condition: Improved Anticipated Discharge Date/Time: 05/30/25 10:07 Discharge Medications: New metformin 500 mg tablet 500 mg PO BID Qty: 60 0RF doxycycline hyclate 100 mg Tablet 100 mg PO BID Qty: 17 0RF Continued albuterol 90 mcg/actuation aerosol 2 spray inhalation Q4H PRN nifedipine 60 mg tablet extended release 60 mg PO DAILY omeprazole 20 mg capsule,delayed release(DR/EC) 20 mg PO DAILY zolpidem [Ambien] 5 mg tablet 5 mg PO QHS PRN (Reason: insomnia) Qty: 30 0RF Rx Instructions: may repeat once if no response in 30-60 minutes lorazepam 0.5 mg tablet 0.5 mg PO BID PRN (Reason: agitation) Qty: 60 0RF rosuvastatin 20 mg tablet 20 mg PO QPM Qty: 90 3RF Discharge Orders: Discharge Order (Routine); Ordered 05/30/25 Ordered By: Joyce M DeBus Patient Education: Doxycycline (By mouth), Metformin (By mouth), Sepsis (DC) Additional Instructions: Take all of the doxycycline to complete a 10 day course Restart Metformin. Outpatient follow up for ongoing management and repeat labs with Dr. Rouse. Outpatient Echocardiogram is recommended. Dr. Rouse to schedule. Activity Level: No Restrictions Discharge Diet: Diabetic Follow Up Appointments: Kahlil Rouse MD [Primary Care Provider, Internal Medicine] Referral Note: Clinic will call patient with follow-up appointment. Forms: [facility] Bel[facility], [facility] Instructions
--- NOTE | 2025-05-30 10:13 | PC.SOCIAL ---
Sugar Controller Consult: SW met with patient who states that he is doing well and has no needs or concerns at this time.
--- NOTE | 2025-05-30 11:34 | PC.NURSE ---
Discharge. pt has been very pleasant. he is Alert and oriented x 4. Denies any pain or SOB.tele shows NSR> he wants to go home. he is eating drinking and voiding with no problems. SL is patent and was used for IV antibiotics. SL was d/c patent. tele was d/c CIWA scores o-4. went over discharge packet with pt. went over medications, appointments, education and instructions. pt went over and signed personal belongings sheet. pt walked out to [address] and shown front entrance. pt left with all belongings and paperwork.,
[2025-06-01 15:39] LABS: Lyme ELISA Reflex 0.08 IV (<=0.90)
[2025-06-01 22:28] LABS: Anaplasma phagocyt PCR Not Detected
== END 2025-05-30 10:50 | disposition home or self-care (01) | DRG 872 ==
LOC: ED 22:05 → MEDSURG 05-29 04:39
PROVIDERS: Physician Assistant; Admitting Provider Family Medicine; Emergency Provider Emergency Medicine; PCP Internal Medicine; Visit Provider Orthopaedic Surgery
DX: A41.9 Sepsis, unspecified organism (principal); E87.1 Hypo-osmolality and hyponatremia; I24.89 Other forms of acute ischemic heart disease; R65.20 Severe sepsis without septic shock; B34.9 Viral infection, unspecified; E11.9 Type 2 diabetes mellitus without complications; F41.9 Anxiety disorder, unspecified; E87.6 Hypokalemia; E83.42 Hypomagnesemia; I25.10 Atherosclerotic heart disease of native coronary artery without angina pectoris; I25.2 Old myocardial infarction; I10 Essential (primary) hypertension; Z95.5 Presence of coronary angioplasty implant and graft; Z79.82 Long term (current) use of aspirin; I73.00 Raynaud's syndrome without gangrene; K21.9 Gastro-esophageal reflux disease without esophagitis; F10.90 Alcohol use, unspecified, uncomplicated
CPT/HCPCS: 36415; 71275; 74177; 80053; 80306; 81001; 82077; 82565; 82803; 82962; 83036; 83605; 83735; 84145; 84443; 84484; 85025; 86140; 86618; 87040; 87086; 87468; 87469; 87484; 87493; 87507; 87631; 87798; 93005; 99285; 99291; A9270; J0456; J1200; J2405; J2543; J2919; J3375; J3475; J7030; J7050; J7120; Q9967